=== PATIENT | male | born 1935 | race Caucasian/White ===

== ENCOUNTER 2018-07-31 09:54 | Inpatient (IN) | payer MEDICARE, SELFPAY ==
[2018-07-31] VITALS (9 sets, daily range): BP systolic 118–159; BP diastolic 69–108; PULSE 60–79; RESP 16–19; TEMP 36.4–36.8; O2SAT 95–100; BMI 25.3
--- NOTE | 2018-07-31 | DI.MRI.S_ITS ---
PROCEDURE: MR STROKE Pre- and post-contrast brain MRI, non-contrast brain MR angiogram, pre- and postcontrast neck MR angiogram INDICATIONS: Left arm and leg weakness TECHNIQUE: Brain: Noncontrast axial T1 spin echo, axial T2 fast spin echo, sagittal and axial FLAIR, coronal T2 fast spin echo, axial gradient echo, axial diffusion and ADC through the brain. After the administration of contrast, axial 3D VIBE of the cranial vasculature and brain. Brain MRA: Non-contrast 3-D time of flight MR angiogram, with multiple juijdzd-gthzrbnmc-mdezsjgfef (MIP) reformats performed. Neck MRA: Axial and sagittal TruFISP through the neck. Coronal dynamic MR angiogram during administration of contrast in the arterial and venous phases, with 3-dimenstional thcwyub-tfhavvblf-yfasoylohp (MIP) reformats constructed from subtraction images. COMPARISON: [facility], CT, CT HEAD/BRAIN WO CON, 07/31/2018, 10:20. FINDINGS: Image quality: Excellent. BRAIN: CSF spaces: Ventricles are normal in size and shape. Basal cisterns are patent. No extra-axial fluid collections. Brain: There is a focal diffusion-weighted abnormality seen involving the right posterior frontal lobe, as on series 2 image 68, affecting the motor strip. There is associated dark signal seen on the ADC map. There is developing T2-weighted/STIR signal seen at this site No intracranial bleeds or mass effects. Proximal muscle ischemic change and brain parenchymal volume loss are seen. Schmitt-white matter interface is normal. Brainstem appears normal. Normal intravascular flow voids are present. No abnormal intracranial enhancement. Skull and face: Calvarial marrow signal is normal. Orbits appear normal. Note is made of bilateral lens replacements. Sinuses: Sinuses and mastoids are clear. BRAIN MR ANGIOGRAM: Anterior circulation: Intracranial internal carotid arteries are normal in size and enhancement. The flow within the paired anterior cerebral arteries is normal and symmetric. The flow within the middle cerebral arteries is normal and symmetric. The anterior communicating artery is seen. No stenoses, occlusions, or aneurysms. Posterior circulation: The visualized portions of the vertebral arteries demonstrate normal caliber, and join to form a normal appearing basilar artery. There is a prominent right posterior communicating artery seen, with an accompanying diminutive right P1 segment. This is attributed to a type origin of the right posterior cerebral artery, which is considered to be a normal developmental variant of typically no clinical consequence. The flow within the posterior cerebral arteries is normal and symmetric. No stenoses, occlusions, or aneurysms. NECK MR ANGIOGRAM: Carotids: Great vessels demonstrate a conventional anatomy as they arise from the aortic arch. The origins of the common carotid arteries appear patent. The calibers and courses of both common carotid arteries are normal. The bifurcation regions appear normal bilaterally. The internal carotid arteries demonstrate normal course and caliber. Posterior circulation: The origins of the vertebral arteries appear patent. More superior portions of both vertebral arteries demonstrate normal course. The left vertebral artery largely terminates in the left posterior inferior cerebellar artery. It joints with the right vertebral artery to form the basilar artery. The basilar artery appears normal. Miscellaneous: Subclavian arteries appear patent. Pre-contrast images through the neck show no soft tissue abnormalities. IMPRESSION: BRAIN MRI: There is a subacute infarction are seen involving the posterior aspect of the right frontal lobe. No acute hemorrhage is seen. Note is made of age-appropriate brain parenchymal volume loss and chronic small vessel ischemic changes. BRAIN MR ANGIOGRAM: No significant intracranial arterial abnormalities are seen. NECK MR ANGIOGRAM: No hemodynamically significant stenosis can be seen of the arteries of the neck. Dictated by: Marcus Hays M.D. on 08/01/2018 at 11:41 Approved by: Marcus Hays M.D. on 08/01/2018 at 11:47
--- NOTE | 2018-07-31 | DI.ECHO.S_ITS ---
[place] [facility]---------+ [facility] +---------+ : : [address] : : : : [id number] : : : : Phone: [phone] Echocardiogram Report + + :Name: TARAS KINNEY Study Date: 08/01/2018 Height: 67 in : :[facility] Weight: 162 lb : : Gender: Male BSA: 1.8 m2 : :: 1935 Age: 82 yrs BP: 120/70 mmHg: :Reason For Study: Atrial fibrillation : : Performed By: Sarah Billings : :Referring: Patricia DAVID E : + + Interpretation Summary 1) Normal left ventricular thickness and size with low normal systolic function (EF 50-55%). 2) Grossly, normal right ventricular size and function. 3) The left atrium is moderately dilated. 4) Mild mitral regurgitation present. 5) No prior Echo available for comparison. Procedure: A two-dimensional transthoracic echocardiogram with color flow and Doppler was performed. The study quality was technically adequate. There is no prior echocardiogram noted for this patient. The patient was in atrial fibrillation with heart rates between 61-80 bpm during the exam. Left Ventricle: The left ventricle is normal in size. There is normal left ventricular wall thickness. The ejection fraction is estimated to be 50-55%. Diastolic function could not be accurately assessed due to atrial fibrillation. Right Ventricle: The right ventricle grossly appears normal in size with probable normal systolic function. Atria: The left atrium is moderately dilated. Right atrial size is normal. The interatrial septum is intact with no evidence for an atrial septal defect. Mitral Valve: The mitral valve leaflets appear mildly thickened, but open well. There is mild mitral regurgitation. Aortic Valve: The aortic valve is trileaflet. The aortic valve opens well. No aortic regurgitation is present. Tricuspid Valve: The tricuspid valve leaflets are thin and pliable. There is trace tricuspid regurgitation. The right ventricular systolic pressure is estimated to be at least 32 mmHg based on an estimated right atrial pressure of 3 mm Hg. Pulmonic Valve: The pulmonic valve is not well seen, but is grossly normal. There is no pulmonic valvular regurgitation. Great Vessels: The aortic root is normal size. The dimensions of the ascending aorta are normal. The aortic arch is normal in size. The IVC is of normal diameter and collapses greater than 50% with a sniff. This suggests a low right atrial pressure of 3 mm Hg. Pericardium/ Pleura There is no pericardial effusion. There is no pleural effusion. MMode/2D Measurements & Calculations LVIDd: 4.9 cm Ao root diam: 3.4 cm LVIDs: 3.4 cm Aortic Jxn: 2.6 cm FS: 30.6 % asc Aorta Diam: 2.9 cm EPSS: 1.1 cm Ao Arch Diam (Prox Trans): 3.2 cm IVSd: 1.1 cm LVPWd: 1.0 cm LV caceres. diameter/BSA (cm/m^2): 2.7 LV sys. diameter/BSA (cm/m^2): 1.9 LA dimension: 4.5 cm RA long axis: 5.6 cm LA A2 area: 24.4 cm2 RA area: 20.4 cm2 LA A4 area: 21.3 cm2 RA vol: 62.4 ml LA length (vol): 5.5 cm RA : 33.8 ml/m2 LA vol: 79.4 ml IVC diam: 1.3 cm LA vol index: 43.0 ml/m2 RVDd major: 5.3 cm RVD1 (basal): 3.8 cm RVD2 (mid): 3.4 cm Doppler Measurements & Calculations Ao V2 max: 143.8 cm/sec MV E max ezequiel: 122.5 cm/sec Ao V2 mean: 99.6 cm/sec MV A max ezequiel: 43.3 cm/sec Ao max P.3 mmHg MV E/A: 2.8 Ao mean P.6 mmHg Med Peak E' Ezequiel: 4.6 cm/sec Ao V2 VTI: 29.8 cm E/E' med: 26.5 Lat Peak E' Ezequiel: 6.8 cm/sec E/E' lat: 17.9 E/e' average: 22.2 MV dec time: 0.21 sec MV P1/2t: 61.3 msec TR max ezequiel: 266.9 cm/sec MV P1/2t max ezequiel: 121.9 cm/sec TR max P.5 mmHg MVA(P1/2t): 3.6 cm2 PA V2 max: 96.6 cm/sec PA V2 mean: 63.0 cm/sec PA mean P.9 mmHg PA Accel Time: 0.16 sec Reading Physician:01:05 PM
--- NOTE | 2018-07-31 10:13 | ED.WEAKNESS ---
HPI - Weakness General Chief complaint: Weakness Stated complaint: thinks he had a stroke Time Seen by Provider: 07/31/18 10:12 Source: patient and family Mode of arrival: ambulatory Limitations: no limitations History of Present Illness HPI Narrative: patient is an 82-year-old male presents with left leg weakness now resolved. He states that yesterday he went up an down a ramp about 12 times for his but a 12 time he could not put weight on his left leg. He denies falling or any injury. His he says he was really unable to walk or do much of anything only history of [place] evening. This morning he woke up and was able to walk okay. His he has no prior history of stroke. Has no chest pain or heart palpitations no shortness of breath. He did take an aspirin last evening. Nothing further today. MD Complaint: generalized weakness and focal weakness ( Left leg) Onset (ago): day(s) Quality: tingling and numbness Relieving factors: none Related Data Home Medications Medication Instructions Recorded Confirmed atorvastatin [Lipitor] 80 mg PO HS #0 10/12/12 07/31/18 tamsulosin [Flomax] 0.4 mg PO QDAY #0 10/12/12 07/31/18 finasteride 0.5 mg PO DAILY 07/31/18 07/31/18 lisinopril 10 mg PO DAILY 07/31/18 07/31/18 Allergies Allergy/AdvReac Type Severity Reaction Status Date / Time No Known Drug Allergies Allergy Verified 07/31/18 09:59 Review of Systems Review of Systems ROS Unobtainable: All systems reviewed & are unremarkable except as noted in HPI and below Constitutional Denies chills, Denies fever(s), Denies lethargy and Reports weakness ( left leg) Eyes Denies change in vision, Denies eye discharge, Denies irritation and Denies loss of vision Cardiovascular Denies chest pain, Denies irregular heart rhythm, Denies lightheadedness, Denies palpitations, Denies dyspnea, Denies dyspnea on exertion and Denies orthopnea Respiratory Denies cough, Denies dyspnea, Denies dyspnea on exertion and Denies wheezing Gastrointestinal Gastrointestinal: Denies abdominal pain, Denies change in bowel habits, Denies diarrhea, Denies nausea and Denies vomiting Musculoskeletal Reports as per HPI Integumentary/Breasts Denies pruritus, Denies erythema, Denies rash and Denies wounds Neurologic Denies loss of vision and Reports weakness ( left leg) Endocrine Denies palpitations Allergic/Immunologic Denies wheezing PFSH Medical History Family history of dementia (Acute) Family history of CVA (Acute) Daily consumption of alcohol (Acute) Mixed hyperlipidemia (Acute) Atrial fibrillation (Acute) Acute CVA (cerebrovascular accident) (Acute) BPH (benign prostatic hyperplasia) (Acute) Essential hypertension (Acute) Surgical History History of appendectomy (Acute) History of tonsillectomy (Acute) Family History Father CVA (cerebral vascular accident) Mother Dementia Social History household members: spouse Smoking Status: Former smoker alcohol intake: current Social History household members: spouse Smoking Status: Former smoker alcohol intake: current Exam Initial Vital Signs Initial Vital Signs: Vital Signs Temperature 97.6 F 07/31/18 09:59 Pulse Rate 62 07/31/18 09:59 Respiratory Rate 19 07/31/18 09:59 Blood Pressure 118/80 07/31/18 09:59 Pulse Oximetry 100 07/31/18 09:59 GENERAL: alert pleasant elderly male no acute distress HEENT: Head atraumatic,EOMI, pupils reactive, face symmetric, neck is supple CARDIO: Irregularly irregular no murmurs RESPIRATORY: Breath sounds equal bilaterally, no wheezes rales or rhonchi. ABDOMEN: Soft, nontender. Normoactive bowel sounds all 4 quadrants. No guarding or rebound. EXTREMITIES: Normal range of motion, no clubbing or edema. Neurovascularly intact NEUROLOGICAL: Alert and oriented x4.Normal gait and speech. Cranial nerves II through XII grossly intact. Good uyiwky-tl-bekp, good rabw-gf-kcco, strength equal bilaterally, no dysarthria or aphasia, sensation in tact to soft touch bilaterally, no visual changes, no facial droop SKIN: Warm, dry, no laceration, no petechiae, no rashes or lesions. Scores NIH Stroke Scale Level of Conciousness: Alert, keenly responsive Ask month/age: Answers both questions correctly. Open/close eyes, close hand: Performs both tasks correctly Best gaze horizontal: Normal Visual landon: No visual loss Facial palsy: Normal symetrical movement Left arm drift: No drift for full 10 sec Right arm drift: No drift for full 10 sec Left leg drift: No drift for full 10 sec Right leg drift: No drift for full 10 sec Limb ataxia: Absent Sensory on face/arms/legs: Normal, no sensory loss Best language: No aphasia, normal Dysarthria: Normal Extinction or inattention: No abnormality Total NIH Stroke scale score: 0 Course Orders Ordered: ED Orders 07/31/18 10:05 Basic Metabolic Panel Stat Complete Blood Count AUTO DIFF Stat Partial Thromboplastin Time Stat Prothrombin Time INR Stat 07/31/18 10:08 EKG-12 Lead Stat 07/31/18 10:20 CT head/brain wo con Stat 07/31/18 12:33 Consult to Physical Therapy Evaluate & Treat 07/31/18 12:57 Consult to Occupational Therapy Evaluate & Treat 07/31/18 13:34 Consult to Pastoral Services Routine 08/01/18 Lipid Panel Routine 08/01/18 05:00 EKG-12 Lead Routine Apixaban (Eliquis) 5 mg PO BID [facility] Aspirin (Aspirin Ec) 81 mg PO DAILY [facility] Atorvastatin Calcium (Lipitor) 80 mg PO BEDTIME [facility] Enoxaparin Sodium (Lovenox) 40 mg SUBCUT 1700 [facility] Stop: 08/01/18 17:01 Lisinopril (Zestril) 10 mg PO DAILY [facility] Non-Formulary Medication (Finasteride) 0.5 mg PO DAILY [facility] Sodium Chloride (Normal Saline 0.9% Flush) 10 ml IV PRN PRN PRN Reason: Flush Sodium Chloride (Normal Saline 0.9% Flush) 10 ml IV BID [facility] Tamsulosin HCl (Flomax) 0.4 mg PO DAILY [facility] Discontinued Medications Apixaban (Eliquis) 5 mg PO NOW ONE Stop: 07/31/18 11:21 Last Admin: 07/31/18 11:55 Dose: 5 mg Dutasteride (Avodart) 0.5 mg PO DAILY [facility] Enalapril Maleate (Vasotec) 20 mg PO DAILY [facility] Hydrochlorothiazide (Hydrochlorothiazide) 12.5 mg PO DAILY [facility] Vital Signs - 8 hr 07/31/18 09:59 07/31/18 10:00 07/31/18 11:30 Temperature 97.6 F Pulse Rate 62 79 79 Respiratory Rate 19 18 19 Blood Pressure 118/80 Blood Pressure [Left Arm] 118/80 122/108 H Pulse Oximetry 100 100 95 07/31/18 12:47 Temperature 97.9 F Pulse Rate 69 Respiratory Rate 18 Blood Pressure 118/69 Blood Pressure [Left Arm] Pulse Oximetry 100 MDM - Weakness Lab Data Attestation: I reviewed the patient's lab results. Result diagrams: 07/31/18 10:05 07/31/18 10:05 Lab Results 07/31/18 07/31/18 07/31/18 Range/Units 10:05 10:05 10:05 WBC 11.3 H (4.5-11.0) X10^3/uL RBC 4.52 (4.5-5.9) X10^6/uL Hgb 15.6 (13.5-17.5) g/dL Hct 46.4 (41-53) % MCV 102.6 H (80-100) fL MCH 34.4 H (26-34) PG MCHC 33.6 (30-36) % RDW 13.4 (11.6-14.8) % Plt Count 165 (150-400) X10^3/uL Neut % (Auto) 67.1 (50-75) % Lymph % (Auto) 26.2 (25-40) % [place] % (Auto) 5.7 (3-14) % Eos % (Auto) 0.3 L (2-4) % Baso % (Auto) 0.7 (0-2) % Neut # (Auto) 7600 H (0196-8570) /uL Lymph # (Auto) 3000 (8643-1941) /uL [place] # (Auto) 600 (0-900) /uL Eos # (Auto) 0 (0-450) /uL Baso # (Auto) 100 (0-100) /uL PT 11.1 (10.1-12.7) SECONDS INR 1.0 (0.9-1.3) APTT 30 (26.4-36.2) SECONDS Sodium 138 (137-145) mmol/L Potassium 3.6 (3.4-5.1) mmol/L Chloride 101 (98-107) mmol/L Carbon Dioxide 28 (22-32) mmol/L BUN 14 (9-20) mg/dL Creatinine 0.70 (0.66-1.25) mg/dL Estimated GFR > 60.0 (>60) mL/min BUN/Creatinine Ratio 20.0 (6-22) Glucose 144 H (80-110) mg/dL Calcium 8.9 (8.4-10.2) mg/dL Imaging Data CT scan - head: Radiologist's impression: PROCEDURE: XR CHEST 2V INDICATIONS: cough TECHNIQUE: 2 views of the chest were acquired. COMPARISON: None. FINDINGS: Surgical changes and devices: None. Lungs and pleura: Lungs are clear. No pleural effusions or pneumothorax. Mediastinum: Mediastinal contours are normal. Heart size is normal. Bones and chest wall: No suspicious bony abnormalities. Soft tissues appear unremarkable. IMPRESSION: 1. No acute cardiopulmonary disease. Dictated by: Haider Gonzalez M.D. on 07/31/2018 at 11:05 ECG Data Attestation: I personally reviewed and interpreted this ECG as follows: Prior ECG tracings: not available for review Interpretation: Atrial fibrillation rate 77 with PVCs no previous known AFib or EKGs to compare MDM Narrative Medical decision making narrative: patient had left leg weakness now completely resolved with a low NIH however he does have new onset atrial fibrillation. Patient likely did have a stroke. Will need further workup an MRI. MRI is unavailable today. Dr. Muniz, update and accepts patient. Discharge Plan Departure Patient Disposition: Admitted as Observation Clinical Impression: CVA (cerebral vascular accident) Qualifiers: CVA mechanism: unspecified Qualified Code(s): I63.9 - Cerebral infarction, unspecified Discharge Date/Time: 07/31/18 12:20 Interventions: ED Discharge Assessment Last Done: 07/31/18 12:28 Admit Date/Time: 07/31/18 12:00 Admit Provider: Patricia Muniz
[2018-07-31 10:15] LABS: Add Manual Diff / Slide Review NO; Basophils Absolute Auto 100 /uL (0-100); Basophils Percent Auto 0.7 % (0-2); Eosinophils Absolute Auto 0 /uL (0-450); Eosinophils Percent Auto 0.3 % (2-4); Hematocrit 46.4 % (41-53); Hemoglobin 15.6 g/dL (13.5-17.5); Lymphocytes Absolute Auto 3000 /uL (1100-4500); Lymphocytes Percent Auto 26.2 % (25-40); Mean Corpuscular HGB Conc 33.6 % (30-36); Mean Corpuscular Hemoglobin 34.4 PG (26-34); Mean Corpuscular Volume 102.6 fL (80-100); Monocytes Absolute Auto 600 /uL (0-900); Monocytes Percent Auto 5.7 % (3-14); Neutrophils Absolute Auto 7600 /uL (1500-7000); Neutrophils Percent Auto 67.1 % (50-75); Platelet Count 165 X10^3/uL (150-400); Red Blood Cell Count 4.52 X10^6/uL (4.5-5.9); Red Cell Distribution Width 13.4 % (11.6-14.8); White Blood Cell Count 11.3 X10^3/uL (4.5-11.0)
[2018-07-31 10:19] LABS: Prothrombin Time 11.1 SECONDS (10.1-12.7)
--- NOTE | 2018-07-31 10:20 | DI.CT.S_ITS ---
PROCEDURE: CT HEAD/BRAIN WO CON INDICATIONS: left leg weakness now resolved TECHNIQUE: Noncontrast 4.5 mm thick angled axial sections acquired from the foramen magnum to the vertex, with coronal and sagittal reformats. For radiation dose reduction, the following was used: automated exposure control, adjustment of mA and/or kV according to patient size. COMPARISON: None. FINDINGS: Image quality: Excellent. CSF spaces: Basal cisterns are patent. No extra-axial fluid collections. The ventricles are symmetric in size and shape. There is moderate cerebral volume loss, with resultant ventricular and sulcal prominence. Brain: No intracranial hemorrhage, mass, or mass effect. There are subcortical, periventricular and deep white matter hypodensities consistent with mild chronic small vessel ischemic changes. There is intracranial internal carotid artery atherosclerosis. Skull and face: Calvarium and visualized facial bones appear intact, without suspicious lesions. Sinuses: Visualized sinuses and mastoids are clear. IMPRESSION: 1. No acute intracranial abnormality. 2. Moderate cerebral volume loss and mild chronic white matter small vessel ischemic changes. Dictated by: aHider Gonzalez M.D. on 07/31/2018 at 10:57 Approved by: Haider Gonzalez M.D. on 07/31/2018 at 10:58
[2018-07-31 10:21] LABS: PTT Partial Thromboplastin Tim 30 SECONDS (26.4-36.2)
[2018-07-31 10:22] LABS: Blood Urea Nitrogen 14 mg/dL (9-20); Calcium 8.9 mg/dL (8.4-10.2); Carbon Dioxide 28 mmol/L (22-32); Chloride 101 mmol/L (98-107); Estimated Glomerular Filt Rate > 60.0 mL/min (>60); Glucose 144 mg/dL (80-110); HEMOLYSIS < 15 (0-50); Potassium 3.6 mmol/L (3.4-5.1); Sodium 138 mmol/L (137-145)
--- NOTE | 2018-07-31 10:25 | ED_ITS ---
HPI - Weakness General Chief complaint: Weakness Stated complaint: thinks he had a stroke Time Seen by Provider: 07/31/18 10:12 Source: patient and family Mode of arrival: ambulatory Limitations: no limitations History of Present Illness HPI Narrative: patient is an 82-year-old male presents with left leg weakness now resolved. He states that yesterday he went up an down a ramp about 12 times for his but a 12 time he could not put weight on his left leg. He denies falling or any injury. His he says he was really unable to walk or do much of anything only history of [place] evening. This morning he woke up and was able to walk okay. His he has no prior history of stroke. Has no chest pain or heart palpitations no shortness of breath. He did take an aspirin last evening. Nothing further today. MD Complaint: generalized weakness and focal weakness ( Left leg) Onset (ago): day(s) Quality: tingling and numbness Relieving factors: none Related Data Home Medications Medication Instructions Recorded Confirmed atorvastatin [Lipitor] 80 mg PO HS #0 10/12/12 07/31/18 tamsulosin [Flomax] 0.4 mg PO QDAY #0 10/12/12 07/31/18 finasteride 0.5 mg PO DAILY 07/31/18 07/31/18 lisinopril 10 mg PO DAILY 07/31/18 07/31/18 Allergies Allergy/AdvReac Type Severity Reaction Status Date / Time No Known Drug Allergies Allergy Verified 07/31/18 09:59 Review of Systems Review of Systems ROS Unobtainable: All systems reviewed & are unremarkable except as noted in HPI and below Constitutional Denies chills, Denies fever(s), Denies lethargy and Reports weakness ( left leg) Eyes Denies change in vision, Denies eye discharge, Denies irritation and Denies loss of vision Cardiovascular Denies chest pain, Denies irregular heart rhythm, Denies lightheadedness, Denies palpitations, Denies dyspnea, Denies dyspnea on exertion and Denies orthopnea Respiratory Denies cough, Denies dyspnea, Denies dyspnea on exertion and Denies wheezing Gastrointestinal Gastrointestinal: Denies abdominal pain, Denies change in bowel habits, Denies diarrhea, Denies nausea and Denies vomiting Musculoskeletal Reports as per HPI Integumentary/Breasts Denies pruritus, Denies erythema, Denies rash and Denies wounds Neurologic Denies loss of vision and Reports weakness ( left leg) Endocrine Denies palpitations Allergic/Immunologic Denies wheezing PFSH Medical History Family history of dementia (Acute) Family history of CVA (Acute) Daily consumption of alcohol (Acute) Mixed hyperlipidemia (Acute) Atrial fibrillation (Acute) Acute CVA (cerebrovascular accident) (Acute) BPH (benign prostatic hyperplasia) (Acute) Essential hypertension (Acute) Surgical History History of appendectomy (Acute) History of tonsillectomy (Acute) Family History Father CVA (cerebral vascular accident) Mother Dementia Social History household members: spouse Smoking Status: Former smoker alcohol intake: current Social History household members: spouse Smoking Status: Former smoker alcohol intake: current Exam Initial Vital Signs Initial Vital Signs: Vital Signs Temperature 97.6 F 07/31/18 09:59 Pulse Rate 62 07/31/18 09:59 Respiratory Rate 19 07/31/18 09:59 Blood Pressure 118/80 07/31/18 09:59 Pulse Oximetry 100 07/31/18 09:59 GENERAL: alert pleasant elderly male no acute distress HEENT: Head atraumatic,EOMI, pupils reactive, face symmetric, neck is supple CARDIO: Irregularly irregular no murmurs RESPIRATORY: Breath sounds equal bilaterally, no wheezes rales or rhonchi. ABDOMEN: Soft, nontender. Normoactive bowel sounds all 4 quadrants. No guard ing or rebound. EXTREMITIES: Normal range of motion, no clubbing or edema. Neurovascularly intact NEUROLOGICAL: Alert and oriented x4.Normal gait and speech. Cranial nerves II through XII grossly intact. Good [id number], good [id number], strength equal bilaterally, no dysarthria or aphasia, sensation in tact to soft touch bilaterally, no visual changes, no facial droop SKIN: Warm, dry, no laceration, no petechiae, no rashes or lesions. Scores NIH Stroke Scale Level of Conciousness: Alert, keenly responsive Ask month/age: Answers both questions correctly. Open/close eyes, close hand: Performs both tasks correctly Best gaze horizontal: Normal Visual landon: No visual loss Facial palsy: Normal symetrical movement Left arm drift: No drift for full 10 sec Right arm drift: No drift for full 10 sec Left leg drift: No drift for full 10 sec Right leg drift: No drift for full 10 sec Limb ataxia: Absent Sensory on face/arms/legs: Normal, no sensory loss Best language: No aphasia, normal Dysarthria: Normal Extinction or inattention: No abnormality Total NIH Stroke scale score: 0 Course Orders Ordered: ED Orders 07/31/18 10:05 Basic Metabolic Panel Stat Complete Blood Count AUTO DIFF Stat Partial Thromboplastin Time Stat Prothrombin Time INR Stat 07/31/18 10:08 EKG-12 Lead Stat 07/31/18 10:20 CT head/brain wo con Stat 07/31/18 12:33 Consult to Physical Therapy Evaluate & Treat 07/31/18 12:57 Consult to Occupational Therapy Evaluate & Treat 07/31/18 13:34 Consult to Pastoral Services Routine 08/01/18 Lipid Panel Routine 08/01/18 05:00 EKG-12 Lead Routine Apixaban (Eliquis) 5 mg PO BID [facility] Aspirin (Aspirin Ec) 81 mg PO DAILY [facility] Atorvastatin Calcium (Lipitor) 80 mg PO BEDTIME [facility] Enoxaparin Sodium (Lovenox) 40 mg SUBCUT 1700 [facility] Stop: 08/01/18 17:01 Lisinopril (Zestril) 10 mg PO DAILY [facility] Non-Formulary Medication (Finasteride) 0.5 mg PO DAILY [facility] Sodium Chloride (Normal Saline 0.9% Flush) 10 ml IV PRN PRN PRN Reason: Flush Sodium Chloride (Normal Saline 0.9% Flush) 10 ml IV BID [facility] Tamsulosin HCl (Flomax) 0.4 mg PO DAILY [facility] Discontinued Medications Apixaban (Eliquis) 5 mg PO NOW ONE Stop: 07/31/18 11:21 Last Admin: 07/31/18 11:55 Dose: 5 mg Dutasteride (Avodart) 0.5 mg PO DAILY [facility] Enalapril Maleate (Vasotec) 20 mg PO DAILY [facility] Hydrochlorothiazide (Hydrochlorothiazide) 12.5 mg PO DAILY [facility] Vital Signs - 8 hr 07/31/18 09:59 07/31/18 10:00 07/31/18 11:30 Temperature 97.6 F Pulse Rate 62 79 79 Respiratory Rate 19 18 19 Blood Pressure 118/80 Blood Pressure [Left Arm] 118/80 122/108 H Pulse Oximetry 100 100 95 07/31/18 12:47 Temperature 97.9 F Pulse Rate 69 Respiratory Rate 18 Blood Pressure 118/69 Blood Pressure [Left Arm] Pulse Oximetry 100 MDM - Weakness Lab Data Attestation: I reviewed the patient's lab results. Result diagrams: 07/31/18 10:05 07/31/18 10:05 Lab Results 07/31/18 07/31/18 07/31/18 Range/Units 10:05 10:05 10:05 WBC 11.3 H (4.5-11.0) X10^3/uL RBC 4.52 (4.5-5.9) X10^6/uL Hgb 15.6 (13.5-17.5) g/dL Hct 46.4 (41-53) % MCV 102.6 H (80-100) fL MCH 34.4 H (26-34) PG MCHC 33.6 (30-36) % RDW 13.4 (11.6-14.8) % Plt Count 165 (150-400) X10^3/uL Neut % (Auto) 67.1 (50-75) % Lymph % (Auto) 26.2 (25-40) % [place] % (Auto) 5.7 (3-14) % Eos % (Auto) 0.3 L (2-4) % Baso % (Auto) 0.7 (0-2) % Neut # (Auto) 7600 H (0207-8484) /uL Lymph # (Auto) 3000 (3493-3774) /uL [place] # (Auto) 600 (0-900) /uL Eos # (Auto) 0 (0-450) /uL Baso # (Auto) 100 (0-100) /uL PT 11.1 (10.1-12.7) SECONDS INR 1.0 (0.9-1.3) APTT 30 (26.4-36.2) SECONDS Sodium 138 (137-145) mmol/L Potassium 3.6 (3.4-5.1) mmol/L Chloride 101 (98-107) mmol/L Carbon Dioxide 28 (22-32) mmol/L BUN 14 (9-20) mg/dL Creatinine 0.70 (0.66-1.25) mg/dL Estimated GFR > 60.0 (>60) mL/min BUN/Creatinine Ratio 20.0 (6-22) Glucose 144 H (80-110) mg/dL Calcium 8.9 (8.4-10.2) mg/dL Imaging Data CT scan - head: Radiologist's impression: PROCEDURE: XR CHEST 2V INDICATIONS: cough TECHNIQUE: 2 views of the chest were acquired. COMPARISON: None. FINDINGS: Surgical changes and devices: None. Lungs and pleura: Lungs are clear. No pleural effusions or pneumothorax. Mediastinum: Mediastinal contours are normal. Heart size is normal. Bones and chest wall: No suspicious bony abnormalities. Soft tissues appear unremarkable. IMPRESSION: 1. No acute cardiopulmonary disease. Dictated by: Haider Gonzalez M.D. on 07/31/2018 at 11:05 ECG Data Attestation: I personally reviewed and interpreted this ECG as follows: Prior ECG tracings: not available for review Interpretation: Atrial fibrillation rate 77 with PVCs no previous known AFib or EKGs to compare MDM Narrative Medical decision making narrative: patient had left leg weakness now completely resolved with a low NIH however he does have new onset atrial fibrillation. Patient likely did have a stroke. Will need further workup an MRI. MRI is unavailable today. Dr. Muniz, update and accepts patient. Discharge Plan Departure Patient Disposition: Admitted as Observation Clinical Impression: CVA (cerebral vascular accident) Qualifiers: CVA mechanism: unspecified Qualified Code(s): I63.9 - Cerebral infarction, unspecified Discharge Date/Time: 07/31/18 12:20 Interventions: ED Discharge Assessment Last Done: 07/31/18 12:28 Admit Date/Time: 07/31/18 12:00 Admit Provider: Patricia Muniz
[2018-07-31] MEDS: APIXABAN 5 MG TABLET PO ×2 (11:55→20:02)
--- NOTE | 2018-07-31 12:37 | PM.HP.1 ---
History of Present Illness Date Patient Seen: 07/31/18 Time Patient Seen: 12:48 Chief complaint: thinks he had a stroke Narrative: This is an 82-year-old male presenting to the emergency department with a history of left-sided, lower extremity weakness since yesterday. He is unable to explain why he did not come in yesterday, but blames some car problems. Yesterday afternoon he went shopping because he was concerned about the worsening weather and by the time he was done bringing things into the house he was unable to stand on the left foot, and so instead of coming to the hospital he called his son and then went to bed. When he woke up this morning the left leg was still weak although it was not bothering him as much, at which point he presented to the emergency department. The initial CT scan does not show any acute stroke and other than apparent new onset atrial fibrillation no other abnormality is reported. When I see him he appears to have residual left-sided symptoms including a Babinski that is downgoing on the left. He lives in his own home off of [address] with his . He attends with Dr. Kaur and he is quite sure that he has never had atrial fibrillation before. 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 He has a history of hypertension and hyperlipidemia but denies any history of diabetes mellitus, stroke or heart trouble. His father did have a stroke at a similar age. He drinks 3-4 shots of gin and whiskey per day. Not a smoker. He has recently been ?battling a stye? on the left upper eyelid. Patient History Medical History Family history of dementia (Acute) Family history of CVA (Acute) Daily consumption of alcohol (Acute) Mixed hyperlipidemia (Acute) Atrial fibrillation (Acute) Acute CVA (cerebrovascular accident) (Acute) BPH (benign prostatic hyperplasia) (Acute) Essential hypertension (Acute) Surgical History History of appendectomy (Acute) History of tonsillectomy (Acute) Family History Father CVA (cerebral vascular accident) Mother Dementia Family & Social History Family History Father CVA (cerebral vascular accident) Mother Dementia Social History: Drinks 3-4 shots of Gin and Whiskey per day. 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 Safety & Behavioral: Feels Safe in Current Yes Environment Been Physically Hurt or No Threatened By a Person Tobacco & Substance use: alcohol intake frequency 3 or more drinks per day Substance Use Type does not use Meds Home Medications Medication Instructions Recorded Confirmed Type aspirin 81 mg PO QDAY #0 10/12/12 History atorvastatin [Lipitor] 80 mg PO HS #0 10/12/12 History dutasteride [Avodart] 0.5 mg PO QDAY #0 10/12/12 History enalapril maleate 20 mg PO QDAY #0 10/12/12 History hydrochlorothiazide [Microzide] 12.5 mg PO QDAY #0 10/12/12 History tamsulosin [Flomax] 0.4 mg PO QDAY #0 10/12/12 History Allergies Allergy/AdvReac Type Severity Reaction Status Date / Time No Known Drug Allergies Allergy Verified 07/31/18 09:59 Review of Systems Review of Systems Positive for left leg weakness and medical care avoidance. Negative for chest pain, nausea, vomiting, shortness of breath, fevers, chills, sweats, bleeding, rashes, joint pain, seizures, headaches, trouble talking, new allergies, sore throat, abdominal pain, dysuria. All systems reviewed & are unremarkable except as noted in HPI and below Exam Vital Signs (past 8 hours): - 07/31/18 09:59 07/31/18 10:00 07/31/18 11:30 Temperature 97.6 F Pulse Rate 62 79 79 Respiratory Rate 19 18 19 Blood Pressure 118/80 Blood Pressure [Left Arm] 118/80 122/108 H Pulse Oximetry 100 100 95 Oxygen Delivery Method Room Air Narrative Exam Narrative: Alert and oriented X 3. No apparent distress Pupils are equally round and reactive to light and accommodation. Extraocular muscles are intact. Sclerae are pink and nonicteric. The left upper eyelid is swollen and reddened consistent with a Hordoleum that he describes he has had for several days. Throat looks normal No lymph nodes are felt head, neck, supraclavicular area There is no thyromegaly JVD is less 6 cm No carotid bruits are heard Heart is irregularly irregular without murmur Lungs clear to auscultation bilaterally Abdomen is soft, bowel sounds positive, nontender, no organomegaly except for the distended bladder that he acknowledges. Extremities trace bilatera ankle edema Skin no rash or jaundice Neuro exam symmetric, 5/5 upper and lower extremity function. Downgoing Babinski's on the right. Upgoing Babinski's on the left. Cranial nerves 2-12 tested intact. Deep tendon reflexes are symmetric and normal active throughout. Balance is normal. Objective Labs Result Diagrams: 07/31/18 10:05 07/31/18 10:05 Labs: Laboratory Results - last 24 hr 07/31/18 07/31/18 07/31/18 10:05 10:05 10:05 WBC 11.3 H RBC 4.52 Hgb 15.6 Hct 46.4 MCV 102.6 H MCH 34.4 H MCHC 33.6 RDW 13.4 Plt Count 165 Neut % (Auto) 67.1 Lymph % (Auto) 26.2 [place] % (Auto) 5.7 Eos % (Auto) 0.3 L Baso % (Auto) 0.7 Neut # (Auto) 7600 H Lymph # (Auto) 3000 [place] # (Auto) 600 Eos # (Auto) 0 Baso # (Auto) 100 PT 11.1 INR 1.0 APTT 30 Sodium 138 Potassium 3.6 Chloride 101 Carbon Dioxide 28 BUN 14 Creatinine 0.70 Estimated GFR > 60.0 BUN/Creatinine Ratio 20.0 Glucose 144 H Calcium 8.9 Assessment & Plan Assessment & Plan narrative: 1 - 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 3 - New Onset Atrial Fibrillation - the rate appears to be controlled. It is not clear how acute or chronic this syndrome is other than he has no recall of being told that he had this before. He will need to be on telemetry. - echocardiogram is pending. - Eliquis will be started. Continue aspirin. 4 - Hyperlipidemia - continue Lipitor and check lipids in the morning. 5 - BPH - continue Avodart and Flomax. Straight cath as needed.
--- NOTE | 2018-07-31 12:57 | P.HP_ITS ---
History of Present Illness Date Patient Seen: 07/31/18 Time Patient Seen: 12:48 Chief complaint: thinks he had a stroke Narrative: This is an 82-year-old male presenting to the emergency department with a history of left-sided, lower extremity weakness since yesterday. He is unable to explain why he did not come in yesterday, but blames some car problems. Yesterday afternoon he went shopping because he was concerned about the worsening weather and by the time he was done bringing things into the house he was unable to stand on the left foot, and so instead of coming to the hospital he called his son and then went to bed. When he woke up this morning the left leg was still weak although it was not bothering him as much, at which point he presented to the emergency department. The initial CT scan does not show any acute stroke and other than apparent new onset atrial fibrillation no other abnormality is reported. When I see him he appears to have residual left- sided symptoms including a Babinski that is downgoing on the left. He lives in his own home off of [facility] with his . He attends with Dr. Kaur and he is quite sure that he has never had atrial fibrillation before. 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 He has a history of hypertension and hyperlipidemia but denies any history of diabetes mellitus, stroke or heart trouble. His father did have a stroke at a similar age. He drinks 3-4 shots of gin and whiskey per day. Not a smoker. He has recently been ?battling a stye? on the left upper eyelid. Patient History Medical History Family history of dementia (Acute) Family history of CVA (Acute) Daily consumption of alcohol (Acute) Mixed hyperlipidemia (Acute) Atrial fibrillation (Acute) Acute CVA (cerebrovascular accident) (Acute) BPH (benign prostatic hyperplasia) (Acute) Essential hypertension (Acute) Surgical History History of appendectomy (Acute) History of tonsillectomy (Acute) Family History Father CVA (cerebral vascular accident) Mother Dementia Family & Social History Family History Father CVA (cerebral vascular accident) Mother Dementia Social History: Drinks 3-4 shots of Gin and Whiskey per day. 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 Safety & Behavioral: Feels Safe in Current Yes Environment Been Physically Hurt or No Threatened By a Person Tobacco & Substance use: alcohol intake frequency 3 or more drinks per day Substance Use Type does not use Meds Home Medications Medication Instructions Recorded Confirmed Type aspirin 81 mg PO QDAY #0 10/12/12 History atorvastatin [Lipitor] 80 mg PO HS #0 10/12/12 History dutasteride [Avodart] 0.5 mg PO QDAY #0 10/12/12 History enalapril maleate 20 mg PO QDAY #0 10/12/12 History hydrochlorothiazide [Microzide] 12.5 mg PO QDAY #0 10/12/12 History tamsulosin [Flomax] 0.4 mg PO QDAY #0 10/12/12 History Allergies Allergy/AdvReac Type Severity Reaction Status Date / Time No Known Drug Allergies Allergy Verified 07/31/18 09:59 Review of Systems Review of Systems Positive for left leg weakness and medical care avoidance. Negative for chest pain, nausea, vomiting, shortness of breath, fevers, chills, sweats, bleeding, rashes, joint pain, seizures, headaches, trouble talking, new allergies, sore throat, abdominal pain, dysuria. All systems reviewed & are unremarkable except as noted in HPI and below Exam Vital Signs (past 8 hours): - 07/31/18 09:59 07/31/18 10:00 07/31/18 11:30 Temperature 97.6 F Pulse Rate 62 79 79 Respiratory Rate 19 18 19 Blood Pressure 118/80 Blood Pressure [Left Arm] 118/80 122/108 H Pulse Oximetry 100 100 95 Oxygen Delivery Method Room Air Narrative Exam Narrative: Alert and oriented X 3. No apparent distress Pupils are equally round and reactive to light and accommodation. Extraocular muscles are intact. Sclerae are pink and nonicteric. The left upper eyelid is swollen and reddened consistent with a Hordoleum that he describes he has had for several days. Throat looks normal No lymph nodes are felt head, neck, supraclavicular area There is no thyromegaly JVD is less 6 cm No carotid bruits are heard Heart is irregularly irregular without murmur Lungs clear to auscultation bilaterally Abdomen is soft, bowel sounds positive, nontender, no organomegaly except for the distended bladder that he acknowledges. Extremities trace bilatera ankle edema Skin no rash or jaundice Neuro exam symmetric, 5/5 upper and lower extremity function. Downgoing Babinski's on the right. Upgoing Babinski's on the left. Cranial nerves 2-12 tested intact. Deep tendon reflexes are symmetric and normal active throughout. Balance is normal. Objective Labs Result Diagrams: 07/31/18 10:05 07/31/18 10:05 Labs: Laboratory Results - last 24 hr 07/31/18 07/31/18 07/31/18 10:05 10:05 10:05 WBC 11.3 H RBC 4.52 Hgb 15.6 Hct 46.4 MCV 102.6 H MCH 34.4 H MCHC 33.6 RDW 13.4 Plt Count 165 Neut % (Auto) 67.1 Lymph % (Auto) 26.2 [place] % (Auto) 5.7 Eos % (Auto) 0.3 L Baso % (Auto) 0.7 Neut # (Auto) 7600 H Lymph # (Auto) 3000 [place] # (Auto) 600 Eos # (Auto) 0 Baso # (Auto) 100 PT 11.1 INR 1.0 APTT 30 Sodium 138 Potassium 3.6 Chloride 101 Carbon Dioxide 28 BUN 14 Creatinine 0.70 Estimated GFR > 60.0 BUN/Creatinine Ratio 20.0 Glucose 144 H Calcium 8.9 Assessment & Plan Assessment & Plan narrative: 1 - 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 3 - New Onset Atrial Fibrillation - the rate appears to be controlled. It is not clear how acute or chronic this syndrome is other than he has no recall of being told that he had this before. He will need to be on telemetry. - echocardiogram is pending. - Eliquis will be started. Continue aspirin. 4 - Hyperlipidemia - continue Lipitor and check lipids in the morning. 5 - BPH - continue Avodart and Flomax. Straight cath as needed.
--- NOTE | 2018-07-31 14:30 | PT.IIE ---
Surgical History (Last Updated 07/31/18 @ 12:41 by Patricia Muniz MD) History of appendectomy (Acute) History of tonsillectomy (Acute) Medical History (Last Updated 07/31/18 @ 12:41 by Patricia Muniz MD) Family history of dementia (Acute) Family history of CVA (Acute) Daily consumption of alcohol (Acute) Mixed hyperlipidemia (Acute) Atrial fibrillation (Acute) Acute CVA (cerebrovascular accident) (Acute) BPH (benign prostatic hyperplasia) (Acute) Essential hypertension (Acute) Physical Therapy Inpatient Evaluation/Re-Eval M1 PT/OT-IP Prior Functional Status Start: 07/31/18 14:31 Freq: NEEDED Status: Active Protocol: Document 07/31/18 14:00 [facility] (Rec: 07/31/18 14:50 [facility] [id number]) Medical Review Prior Functional Status Medical History Reviewed Yes Mobility and Gait indep. gait without device Activities of Daily Living and IADL's indep. I/ADLs, including driving Social History Household Members spouse Living Arrangements House Number of Floors (Floors) Two Floors Number of Stairs To Enter/Railing? ramped entry- 20 steps with unilat. rail down to his record room. Can live on main level (does not need to manage stairs). Home Environment Standard Height Toilet Walk in Shower Ramp Home Equipment Front Wheel Walker Additional Social History Comment Pt with acute onset LLE weakness, unable to WB on the LLE. He denied pain. CT was negative for acute findings. His recently had L leg fx and surgery, currently is the primary CG for her. His son and DIL will stay with them until Wednesday. M2 PT-IP Current Condition Start: 07/31/18 14:31 Freq: NEEDED Status: Active Protocol: Document 07/31/18 14:00 RCC (Rec: 07/31/18 14:50 [facility] [id number]) Physical Therapy Current Condition Current Condition Evaluation Date 07/31/18 Treatment Diagnosis CVA, A-fib, impaired activity tolerance M3 PT-IP Subjective Start: 07/31/18 14:31 Freq: NEEDED Status: Active Protocol: Document 07/31/18 14:00 RCC (Rec: 07/31/18 14:50 [facility] [id number]) Subjective Physical Therapy Visit Type Type Initial Evaluation Visit Start Time 14:00 Visit Stop Time 14:30 Total Visit Minutes 30 Number of FURNACE ROASTER Visits 0 Physical Therapy Visit Comments Patient Comments pt states that he feels close to his baseline Patient Goals to be able to care for his Therapy Pain Assessment Pain Present Pain Present Denied Pain M4 PT-IP Mobility and Gait Start: 07/31/18 14:31 Freq: NEEDED Status: Active Protocol: Document 07/31/18 14:00 [facility] (Rec: 07/31/18 14:50 [facility] [id number]) PT-Bed Mobility Assessment Supine to Sit Supine to Sit Independent Scooting Scooting to Edge of Bed Independent PT-Transfer Assessment Sit to and From Stand Sit to and from Stand Standby Assistance Equipment Transfer Assistive Device Gait Belt Front Wheeled Walker Transfers Transfer Destination Chair Transfer Technique Stand Step Pivot Transfer Ability Level of Assist Standby Assistance Gait Assessment Gait Gait Assistance Required: Standby Assistance Distance (Feet) 150 Assistive Devices Assistive Device Gait Belt Front Wheeled Walker Gait Deviations General Gait Pattern Decreased Stride Length Factors Limiting Gait Function Factors Limiting Gait Function Decreased Activity Tolerance Poor Balance Comments Gait Comments 125 ft with FWW, 25 ft without AD. PT-Balance Assessment Sitting Balance and Reactions Static Sitting Balance Ability Good Dynamic Sitting Balance Ability Good Standing Balance and Reactions Static Standing Balance Ability Good Dynamic Standing Balance Ability Fair Device Used FWW Balance Tests Single Limb Standing unable Tandem Standing 3 sec each M5 PT-IP Objective Assessments Start: 07/31/18 14:31 Freq: NEEDED Status: Active Protocol: Document 07/31/18 14:00 [facility] (Rec: 07/31/18 14:50 [facility] [id number]) Orientation Orientation/Cognition Level of Alertness Alert Orientation Name Age Birthday Month Date Year Day of Week Place Situation Gross Range of Motion Lower Extremity ROM Assessment Within Functional Limits Strength Lower Extremity Strength Assessment Within Functional Limits Coordination Assessment Assessment Finger to Nose Test Normal Performance Pronation/Supination Test Normal Performance Foot Tapping Test Normal Performance Heel on Vicente Test Normal Performance Sensation Assessment Sensation Gross Sensation WNL Light Touch Intact Muscle Tone Muscle Tone WNL Yes M6 PT-IP Treatment Start: 07/31/18 14:31 Freq: NEEDED Status: Active Protocol: Document 07/31/18 14:00 [facility] (Rec: 07/31/18 14:50 [facility] [id number]) Physical Therapy Treatment Education Education Provided Safety M7 PT-IP Assessment and Plan Start: 07/31/18 14:31 Freq: NEEDED Status: Active Protocol: Document 07/31/18 14:00 [facility] (Rec: 07/31/18 14:50 [facility] [id number]) PT Summary Assessment and Plan Potential Rehabilitation Potential Good Status of Condition at Evaluation Stable Summary Impairments Balance Gait Activity Tolerance Assessment Summary Pt presents with strength equal bilaterally in the LEs and able to WB on the LLE without problems. Pt does have some balance deficits, but was able to ambulate the final 25 ft of gait without any assistive device and no loss of balance. Pt fatigued, but HR 85 bpm and O2 saturation 98% after ambulation. Pt likely to be able to d/c home when medically stable. Goals Bed Mobility Goal Independent Transfer Goal Independent Gait Goal Independent Gait Distance 300 Days to Meet Goals 4 Frequency of Treatment Frequency Of Treatment Once a Day Treatment Plan Physical Therapy Treatment Plan Gait Training Therapeutic Exercise Balance Retraining Discharge Planning Neuromuscular Re-ed Other Recommendations and Next Treatment gait without device, standing Focus balance training. Recommendations To Nursing Amount of Assist Needed 1 Person Assist Discharge Recommendations PT Discharge Recommendations Home
--- NOTE | 2018-07-31 15:56 | PC.NURSE ---
Admit: Late entry Arrived to room 230 at 1230. Alert and oriented X3. Admits to having some trouble with his short-term memory lately. No neuro deficits noted during assessment, NIH score=0. PERRLA. Speech clear, no facial droop. Denies pain, chest pain/palpitations or shortness of breath. VSS, 99-100% on RA. Tele monitoring ongoing, reading A-fib, BBB w/ occasional PVC's (per ICU report). HR irregular to auscultation. Lungs CTA. 2+ pitting edema to BLE's. Oriented to room and call light and instructed to call for staff w/ any needs. Agreed not to get up without assist, history of multiple recent falls. Fall precautions implemented. Up in chair at this time. Call light in reach, chair alarm on.
[2018-07-31] MEDS: ATORVASTATIN 20 MG TABLET 80 MG PO (20:02)
[2018-07-31] MEDS: SODIUM CHLORIDE 0.9% FLUSH 10 ML IV (20:02)
[2018-08-01] VITALS (8 sets, daily range): BP systolic 107–145; BP diastolic 61–92; PULSE 53–69; RESP 17–18; TEMP 36.3–36.7; O2SAT 97–100
[2018-08-01] MEDS: POTASSIUM CHLORIDE 20 MEQ/15 ML UDC 40 MEQ PO (01:30)
--- NOTE | 2018-08-01 04:23 | PC.NURSE ---
Parts Consultant Note: 0030: Sleeping, arousable. Vital signs stable. Pt is alert, oriented X3. IV in place in lt AC. Hw remains on telemetry. Room air sats are 100%. Pt denies pain, headache, or any discomfort. Assisted up to bathroom: steady on his feet. He refuses walker. Heart beat is irregular.
[2018-08-01 05:48] LABS: Add Manual Diff / Slide Review NO; Basophils Absolute Auto 0 /uL (0-100); Basophils Percent Auto 0.4 % (0-2); Eosinophils Absolute Auto 0 /uL (0-450); Eosinophils Percent Auto 0.7 % (2-4); Hematocrit 43.9 % (41-53); Hemoglobin 14.6 g/dL (13.5-17.5); Lymphocytes Absolute Auto 3200 /uL (1100-4500); Lymphocytes Percent Auto 42.6 % (25-40); Mean Corpuscular HGB Conc 33.3 % (30-36); Mean Corpuscular Hemoglobin 34.4 PG (26-34); Mean Corpuscular Volume 103.3 fL (80-100); Monocytes Absolute Auto 500 /uL (0-900); Monocytes Percent Auto 6.9 % (3-14); Neutrophils Absolute Auto 3700 /uL (1500-7000); Neutrophils Percent Auto 49.4 % (50-75); Platelet Count 147 X10^3/uL (150-400); Red Blood Cell Count 4.25 X10^6/uL (4.5-5.9); Red Cell Distribution Width 13.4 % (11.6-14.8); White Blood Cell Count 7.5 X10^3/uL (4.5-11.0)
[2018-08-01 05:52] LABS: Blood Urea Nitrogen 12 mg/dL (9-20); Calcium 8.7 mg/dL (8.4-10.2); Carbon Dioxide 26 mmol/L (22-32); Chloride 105 mmol/L (98-107); Estimated Glomerular Filt Rate > 60.0 mL/min (>60); Glucose 87 mg/dL (80-110); HEMOLYSIS 15 (0-50); Magnesium 1.9 mg/dL (1.6-2.3); Potassium 3.8 mmol/L (3.4-5.1); Sodium 138 mmol/L (137-145)
[2018-08-01 06:06] LABS: Cholesterol 106 mg/dL (140-199); HDL Cholesterol 48 mg/dL (40-60); LDL Cholesterol Calculated 44 mg/dL (<100); Triglycerides 69 mg/dL (35-150)
[2018-08-01 07:26] LABS: Thyroid Stimulating Hormone 2.94 uIU/mL (0.47-4.68)
[2018-08-01] MEDS: ASPIRIN EC 81 MG TABLET PO (09:27)
[2018-08-01] MEDS: TAMSULOSIN 0.4 MG CAPSULE PO (09:27)
[2018-08-01] MEDS: APIXABAN 5 MG TABLET PO ×2 (09:27→22:37)
[2018-08-01] MEDS: FINASTERIDE 5 MG TABLET PO (09:27)
[2018-08-01] MEDS: LISINOPRIL 10 MG TABLET PO (09:27)
[2018-08-01] MEDS: SODIUM CHLORIDE 0.9% FLUSH 10 ML IV ×2 (09:27→22:38)
--- NOTE | 2018-08-01 11:15 | PT.IPTN ---
Current Diagnoses Cerebral infarction, unspecified (07/31/18) Physical Therapy Treatment Note M2 PT-IP Current Condition Start: 07/31/18 14:31 Freq: NEEDED Status: Active Protocol: Document 07/31/18 14:00 RCC (Rec: 07/31/18 14:50 [facility] [id number]) Physical Therapy Current Condition Current Condition Evaluation Date 07/31/18 Treatment Diagnosis CVA, A-fib, impaired activity tolerance M3 PT-IP Subjective Start: 07/31/18 14:31 Freq: NEEDED Status: Active Protocol: Document 08/01/18 10:00 (Rec: 08/01/18 11:15 [id number]) Subjective Physical Therapy Visit Type Type Discharge Summary Visit Start Time 10:00 Visit Stop Time 10:25 Total Visit Minutes 25 Notes Pt is going to have MRI screen for his CVA. Number of CLIENT SERVICES REPRESENTATIVE Visits 0 Physical Therapy Visit Comments Patient Comments I think im at my baseline. Therapy Pain Assessment Pain Present Pain Present Denied Pain M4 PT-IP Mobility and Gait Start: 07/31/18 14:31 Freq: NEEDED Status: Active Protocol: Document 08/01/18 10:00 (Rec: 08/01/18 11:15 [id number]) PT-Bed Mobility Assessment Scooting Scooting to Edge of Bed Independent PT-Transfer Assessment Sit to and From Stand Sit to and from Stand Independent Equipment Transfer Assistive Device None Gait Belt Transfers Transfer Destination Chair Toilet Transfer Technique Stand Step Pivot Transfer Ability Level of Assist Independent Use of Upper Extremities Comments Mobility Comments Pt was up in his bedside chair upon assessment. Pt stood up and amb to bathroom under supervision. He was able to void with his urinal in standing. Pt showed very good balance without the need of UE support on surface. Gait Assessment Gait Gait Assistance Required: Independent Distance (Feet) 400 Assistive Devices Assistive Device Gait Belt Factors Limiting Gait Function Factors Limiting Gait Function Decreased Activity Tolerance Comments Gait Comments 400 ft without AD with a steady gait. Pt states I think im walking like baseline with the same speed. Stair Climbing Assessment Evaluation Level of Assist On Stairs Standby Assistance Devices Stair Climbing Assistive Devices Left Railing Technique/Endurance Stair Climbing Direction Ascend and Descend Stair Climbing Technique Step Over Step Number of Steps Climbed 3 Query Text: Stair Climbing Set # Repetitions (reps) 5 Comments Stair Climbing Comments no signs of LOB / acute distress. M5 PT-IP Objective Assessments Start: 07/31/18 14:31 Freq: NEEDED Status: Active Protocol: Document 07/31/18 14:00 RCC (Rec: 07/31/18 14:50 [facility] [id number]) Orientation Orientation/Cognition Level of Alertness Alert Orientation Name Age Birthday Month Date Year Day of Week Place Situation Gross Range of Motion Lower Extremity ROM Assessment Within Functional Limits Strength Lower Extremity Strength Assessment Within Functional Limits Coordination Assessment Assessment Finger to Nose Test Normal Performance Pronation/Supination Test Normal Performance Foot Tapping Test Normal Performance Heel on Vicente Test Normal Performance Sensation Assessment Sensation Gross Sensation WNL Light Touch Intact Muscle Tone Muscle Tone WNL Yes M6 PT-IP Treatment Start: 07/31/18 14:31 Freq: NEEDED Status: Active Protocol: Document 07/31/18 14:00 RCC (Rec: 07/31/18 14:[address] [facility] [id number]) Physical Therapy Treatment Education Education Provided Safety M7 PT-IP Assessment and Plan Start: 07/31/18 14:31 Freq: NEEDED Status: Active Protocol: Document 08/01/18 10:00 (Rec: 08/01/18 11:15 [id number]) PT Summary Assessment and Plan Summary Assessment Summary Pt cont presents equal strenght and ROM bilaterally for both UEs and LEs. Pt improved with amb distance and balance up to 400 ft without using AD. Pt was very steady the entire time and able to climb stairs x3 steps x 5 sets with L rail. Pt's HR and SpO2 also maintained steady as well. D/c from PT due to rehab goals and PLOF have met and recommend to d/c home when pt is medically stable . Frequency of Treatment Frequency Of Treatment Discharge Recommendations To Nursing Amount of Assist Needed 1 Person Assist Discharge Recommendations PT Discharge Recommendations Home
--- NOTE | 2018-08-01 14:08 | PC.NURSE ---
Shift summary: Alert and oriented X3. SBA with ambulation. NIH score=0. Denies chest pain/pressure/palpitations or shortness of breath. Had his MRI and ECHO today, reports pending. Lungs CTA. HR irregular, tele monitoring ongoing. Room air 99-100%. Able to make needs known but does not always call appropriately. Sitting up in chair visiting with his son. Chair alarm on, light in reach.
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
[2018-08-01] MEDS: ENOXAPARIN 40 MG/0.4 ML SYRINGE SUBCUT (17:47)
--- NOTE | 2018-08-01 17:58 | ST.IPIE ---
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 Willis Reason for Referral CVA Past Medical History Patient History Patient came in for left sided lower extremity weakness and imaging revealed subacute infarction involving the posterior aspect of the right frontal lobe. His weakness has since resolved. He was evaluated by and discharged from PT. Both the patient and his son report recent decline in cognition. Patient reports he takes Prevagen for his memory. [place] Language Language(s) Spoken in the Home [place] Citizen Educational Status Education Level PhD Occupational Status Occupation Status Retired Previous Therapy Previous Speech-Language Therapy No Oral Motor Examination Oral Motor Exam Completed Yes Results Uvula mildly deviates to left. Appears to have slight left facial droop at rest, though patient denies and the stye affecting his left eye makes it difficult to determine. No mouth droop during labial retraction. Otherwise, oral mech is within functional limits. - Informal Assessment Receptive Language Normal Yes Expressive Language Normal Yes Articulation Normal Yes Assessment Findings No standardized assessments completed. OT completed SLUMS. Patient scored 25/30 with difficulty on short term memory tasks. Also observed difficulty with trail making task. Informal assessment of word finding in structured tasks and in conversation revealed mild high level word finding impairment. Patient complains of difficulty remembering names and coming up with high level words in conversation such as [place]. No significant word finding issues were observed in conversation and patient was able to clearly and effectively express simple and complex thoughts. No dysarthria observed, speech intelligibility was 100%. Patient was oriented and spoke a lot about his children, their careers and families and recent events. He expressed concern with completing his taxes as he has been busy taking care of his . Earlimart swallow protocol was completed. A delayed cough was observed indicating possible risk for aspiration. A more thorough Clinical Swallow Evaluation is recommended tomorrow as it was not completed today due to time restraints. In addition, a more thorough cognitive evaluation is recommended in order to determine patient's safety to return home and care for his . Given today's assessment and collaboration with OT who observed difficulty with executive functions and problem solving, patient will likely need caregivers in the home to assist and ensure safety. Written education of word retrieval strategies was provided and reviewed with the patient. He expressed understanding. We also discussed outpatient speech therapy if he does not receive speech therapy elsewhere at discharge. - Receptive Language Yes/No Questions Skill Level WFL Following Directions - Verbal Skill Level WFL Defining Words Skill Level WFL Auditory Comprehension Skill Level WFL - Expressive Language Automatic Speech Skill Level WFL Sentence Closure Skill Level WFL Object Naming Skill Level WFL Oral Expression Skill Level WFL - Treatment Goals Short Term Goals Maverick will participate in high level naming tasks to improve word finding skills. Maverick will demonstrate understanding of word retrieval strategies. Ongoing cognitive and swallow assessment.
--- NOTE | 2018-08-01 17:58 | OT.IP.EVAL ---
Current Diagnoses Cerebral infarction, unspecified (07/31/18) Past Medical History (Last Updated 07/31/18 @ 12:41 by Patricia Muniz MD) Family history of dementia (Acute) Family history of CVA (Acute) Daily consumption of alcohol (Acute) Mixed hyperlipidemia (Acute) Atrial fibrillation (Acute) Acute CVA (cerebrovascular accident) (Acute) BPH (benign prostatic hyperplasia) (Acute) Essential hypertension (Acute) Surgical History (Last Updated 07/31/18 @ 12:41 by Patricia Muniz MD) History of appendectomy (Acute) History of tonsillectomy (Acute) Occupational Therapy Inpatient Evaluation/Re-Eval M1 PT/OT-IP Prior Functional Status Start: 08/01/18 17:07 Freq: NEEDED Status: Active Protocol: Document 08/01/18 13:35 [facility] (Rec: 08/01/18 17:58 [facility] [id number]) Medical Review Prior Functional Status Medical History Reviewed Yes Mobility and Gait indep. gait without device Activities of Daily Living and IADL's indep. I/ADLs, including driving Prior Functional Level (Other details) Pt taking care of his who recent had left leg fracture. Social History Household Members spouse Living Arrangements House Number of Floors (Floors) Two Floors Number of Stairs To Enter/Railing? ramped entry- 20 steps with unilat. rail down to his record room. Can live on main level (does not need to manage stairs). Home Environment Standard Height Toilet Walk in Shower Ramp Home Equipment Front Wheel Walker Additional Social History Comment Pt with acute onset LLE weakness, unable to WB on the LLE. He denied pain. CT was negative for acute findings. His recently had L leg fx and surgery, currently is the primary CG for her. His son and DIL will stay with them until Wednesday. Pt's son said recently having lots of falls this past week. M2 OT-IP Current Condition Start: 08/01/18 17:07 Freq: Status: Active Protocol: Document 08/01/18 13:35 [facility] (Rec: 08/01/18 17:58 [facility] [id number]) Occupational Therapy Current Condition Current Condition Evaluation Date 08/01/18 Treatment Diagnosis Subacute infarcts involving aspect of right frontal lobe Diagnosis Onset Date 07/31/18 M3 OT- IP Subjective and Pain Start: 02/18/19 17:07 Freq: Status: Active Protocol: Document 08/01/18 13:35 [facility] (Rec: 08/01/18 17:58 [facility] [id number]) OT- Subjective Occupational Therapy Visit Type Type Initial Evaluation Visit Start Time 13:35 Visit Stop Time 14:55 Total Visit Minutes 80 Occupational Therapy Visit Comments Patient Comments Pt willing to do OT eval , pt' s son present in the room. OT Pain Assessment Pain When Pain Assessed At Rest Pain Present Pain Present Denied Pain M4 OT- IP ADL's Start: 08/01/18 17:07 Freq: Status: Active Protocol: Document 08/01/18 13:35 [facility] (Rec: 08/01/18 17:58 [facility] [id number]) OT ADL-Grooming General Evaluation Grooming Ability Standby Assistance Comments OT Grooming Comments Pt able to walk to the cabinet to retrieve grooming items and able to independently do physical needs for grooming, pt however needing vc for problem solving for grooming task. Pt not able to figure out how to open tooth paste film even after giving him cues to look at toothbrush in hand. Pt able to state at home would use his tweezers ot pocket knife. OT ADL-Oral Care General Eval Oral Care Ability Independent OT ADL-Dressing General Eval Lower Body Dressing Ability Minimal Assistance Comments OT Dressing Comments Pt able to independently laurel/ doff socks and needing assist to get heel into his shoes. Pt states uses a shoe horn at home. OT ADL-Toileting Comments OT Toileting Comments No opportunity as pt just used bathroom prior to therapist's arrival. OT ADL-Bathing Comments OT Bathing Comments To assess tomorrow if appropriate. M5 OT- IP IADL's Start: 08/01/18 17:07 Freq: Status: Active Protocol: Document 08/01/18 13:35 [facility] (Rec: 08/01/18 17:58 [facility] [id number]) OT-Instrumental Activities of Daily Living Home Safety Awareness Ability to Problem Solve Emergency Unable to Problem Solve Situations Home Safety Comments When asked home safety situations mostly accurate, able to states unplug toaster in case of fire, able to accurately states how to use fire extinguisher, and after increased time able to state call 911, pt needing increased time to figure out to call physician or pharmacy if he ever ran out of medications for pill bottles, but however, when asking if someone calling to ask for your social security number , pt proceeded to state his number. Educated pt for safety awareness for personal information that strangers/ scammers may be calling him for and to be aware not to give out especially financial information. Driving Driving Comments Prior pt states did all IADL needs and driving. M6 OT- IP Functional Cognition Start: 08/01/18 17:07 Freq: Status: Active Protocol: Document 08/01/18 13:35 [facility] (Rec: 08/01/18 17:58 [facility] [id number]) Cognitive Factors Limiting Selfcare Function Cognitive Ability Level of Alertness Alert Patient Orientation Name Place Situation Attention Span Ability Capable of Focused Attention Capable of Sustained Attention Ability to Follow Commands Able to Follow Multi-Step Commands Memory Description Immediate Intact Short Term Impaired Penitentiary Intact Working Impaired Safety Awareness Underestimates Need for Assistance Problem Solving Ability Needs Assist to Identify Solutions Executive Function Ability Unable to Organize Plans Unable to Remember Details Cognitive Tests SLUMS Pt scored 25/30 normal is 27 therefore implies mild cognitive impairment. Pt mainly having difficulty with short term memory items. ACL Pt scored 4.6 out of 6.0 which implies may live alone with daily assistance to monitor safety and proved a daily allowance and assist with money management, monitor nutrition and help to get to appointments Cognitive Comments Cognitive Assessment Comments Pt scored 247 seconds and MOD vc to get through [place] Making B which per [employer] a score of greater than 180 seconds implies more likely to get into a car accident. Pt not able to recall sequence of number to letter and needing MODvc. At this time suggested to pt and son no driving. OT- Vision and Hearing OT- Vision Assessment Visual Acuity Glasses All The Time Visual Gonsales Impaired Vision Assessment Comments Pt has left eye stye which may also be affecting vision to upper left quadrant. Pt able to track, scan in all directions accurate. M7 OT- IP Mobility and Balance Start: 08/01/18 17:07 Freq: Status: Active Protocol: Document 08/01/18 13:35 [facility] (Rec: 08/01/18 17:58 [facility] [id number]) OT-Transfer Assessment Sit to and From Stand Sit to and from Stand Standby Assistance Transfers Transfer Ability Standby Assistance Technique Transfer Destination Chair Transfer Technique Stand Step Pivot Devices Transfer Assistive Devices Gait Belt Comments Mobility Comments Pt had lose of balance while walking over to window on his room but able to recover. Pt tends to have wide base of support. Pt states mainly wears shoes at home. Prior pt independently able to walk down to stairs and with PT and do steps with SBA. Notified Pt of pt's lose of balance. Tomorrow to see pt again fro dynamic balance and if pt continues to have loss of balance may request to have PT to re-eval. OT- Balance Assessment Sitting Balance and Reactions Static Sitting Balance Ability Normal Dynamic Sitting Balance Ability Normal Standing Balance and Reactions Static Standing Balance Ability Normal Dynamic Standing Balance Ability Fair M8 OT- IP Objective Assessments Start: 08/01/18 17:07 Freq: Status: Active Protocol: Document 08/01/18 13:35 [facility] (Rec: 08/01/18 17:58 [facility] [id number]) OT Gross Range of Motion Upper Extremity Range of Motion Assessment Within Functional Limits OT Strength Comments Strength Comments Not able to formally assess, but able to use for ADl needs, at least 3+/5. OT- Coordination Assessment Comments Coordination Comments Able to do set-up for grooming needs, to further assess tomorrow for in hand manipulation, hand as storage, etc... OT-Muscle Tone Assessment Muscle Tone WNL Yes OT Sensation Assessment Comments Summary Comments To be assessed. M9 OT- IP Assessment and Plan Start: 08/01/18 17:07 Freq: Status: Active Protocol: Document 08/01/18 13:35 [facility] (Rec: 08/01/18 17:58 [facility] [id number]) OT Summary Assessment and Plan Potential Rehabilitation Potential Good Analytic Complexity at Evaluation Low Summary OT Impairments Coordination Functional Cognition Functional Mobility Dressing Toileting Bathing Shower Transfers Progress Towards Goals Progressing Toward Goals Slow Progress due to Cognition Assessment Summary Pt low complexity and main barrier is decreased short term memory, difficulty with higher level cognitive function, left upper quadrant vision, and dynamic balance. Pt would benefit assist at home at this time as no recommended to drive at this time. Pt's son will be there to assist until Wednesday and suggested to watch pt do things, especially for IADL needs. Pt may also benefit from home health to check on safety needs at home and what pt will have to be able to do at home, as he takes care of his . In addition pt and son looking into hiring assist at home. Goals Grooming Goal Independent Dressing Goal Independent Toileting Goal Independent Bathing Goal Independent Toilet Transfer Goal Standby Assistance Shower Transfer Goal Standby Assistance Patient/Caregiver Education Goal Caregiver Independent Assisting Patient Days to Meet Goals 3 Frequency of Treatment Frequency Of Treatment Once a Day Treatment Plan OT Treatment Plan ADL Training Functional Cognition Training Functional Mobility Vision Retraining Patient/Family Education Discharge Planning Other Treatment Recommendations and Next OSCAR ochoa balance Treatment Focus Discharge Recommendations OT Discharge Recommendations Home with Assistance Home Health Home Equipment Needs Shower chair
--- NOTE | 2018-08-01 18:34 | PM.PN.1 ---
Subjective Date Patient Seen: 08/01/18 Interval history: Maverick Quigley is an 82-year-old male with a past medical history significant for hypertension, hyperlipidemia, chronic daily alcohol use, and BPH who presented for 1 day of left-sided weakness and was admitted for CVA rule out and found to have new onset atrial fibrillation. The patient is resting in bedside chair comfortably. He reports that his left-sided weakness has resolved completely. He continues to have positive Babinski on the left. He is doing well with physical therapy who recommend home without assistance. His MRI today demonstrated a subacute right frontal lobe CVA. He is on Eliquis for atrial fibrillation. His echocardiogram did not demonstrate a left atrial thrombus. He denies headache, chest pain, shortness of breath, cough, abdominal pain, nausea, vomiting, fever, chills, dysuria, diarrhea or constipation. He is voiding and eliminating without difficulty. He has a good appetite and has no difficulty swallowing. He is up ambulating without assistance. Exam Vital Signs (past 8 hours): - 08/01/18 13:23 08/01/18 15:40 Temperature 97.6 F 97.5 F L Pulse Rate 60 54 L Respiratory Rate 18 17 Blood Pressure 107/73 134/66 Pulse Oximetry 99 97 Oxygen Delivery Method Room Air Oxygen Flow Rate 0 Narrative Exam Narrative: General: Elderly gentleman sitting in bedside chair and in no acute distress, well-developed, well-nourished, appropriately interactive. HEENT: Normocephalic, atraumatic. External ears without defect. Pupils equal, round, and reactive to light. Anicteric sclerae, moist conjunctivae, and no lid lag. Neck: Supple with full range of motion. No jugular venous distension. No bruits. No lymphadenopathy or thyromegaly. Cardiovascular: Irregularly irregular without murmurs, rubs, or gallops appreciated Pulmonary: Clear to auscultation bilaterally without crackles, wheezes, or rhonchi. Normal respiratory effort with no use of accessory muscles. Abdomen: Soft, bowel sounds present nontender, nondistended. No hepatosplenomegaly or masses appreciated. Extremities: No clubbing, cyanosis, or edema. Skin: Normal temperature, turgor, and texture; no rash, ulcers, or subcutaneous nodules appreciated. Neurological: Cranial nerves grossly intact. Normal muscle strength, tone, and bulk in bilateral upper and lower extremities. Coordination and sensory function within normal limits. Positive Babinski on the left. No known gait impairment. Psychiatric: Normal mood and affect. Alert and oriented to person, place, and time. Objective Labs Result Diagrams: 08/01/18 04:52 08/01/18 04:52 Labs: Laboratory Results - last 24 hr 08/01/18 08/01/18 08/01/18 04:52 04:52 04:52 WBC 7.5 RBC 4.25 L Hgb 14.6 Hct 43.9 MCV 103.3 H MCH 34.4 H MCHC 33.3 RDW 13.4 Plt Count 147 L Neut % (Auto) 49.4 L Lymph % (Auto) 42.6 H Garvin % (Auto) 6.9 Eos % (Auto) 0.7 L Baso % (Auto) 0.4 Neut # (Auto) 3700 Lymph # (Auto) 3200 Garvin # (Auto) 500 Eos # (Auto) 0 Baso # (Auto) 0 Sodium 138 Potassium 3.8 Chloride 105 Carbon Dioxide 26 BUN 12 Creatinine 0.60 L Estimated GFR > 60.0 BUN/Creatinine Ratio 20.0 Glucose 87 Calcium 8.7 Magnesium 1.9 Triglycerides 69 Cholesterol 106 L LDL Cholesterol, Calc 44 HDL Cholesterol 48 TSH 08/01/18 04:52 WBC RBC Hgb Hct MCV MCH MCHC RDW Plt Count Neut % (Auto) Lymph % (Auto) Garvin % (Auto) Eos % (Auto) Baso % (Auto) Neut # (Auto) Lymph # (Auto) Garvin # (Auto) Eos # (Auto) Baso # (Auto) Sodium Potassium Chloride Carbon Dioxide BUN Creatinine Estimated GFR BUN/Creatinine Ratio Glucose Calcium Magnesium Triglycerides Cholesterol LDL Cholesterol, Calc HDL Cholesterol TSH 2.94 Assessment & Plan Assessment & Plan narrative: Maverick Quigley is an 82-year-old male with a past medical history significant for hypertension, hyperlipidemia, chronic daily alcohol use, and BPH who presented for 1 day of left-sided weakness and was admitted for CVA rule out and found to have new onset atrial fibrillation. 1. 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 Active. -He did not receive tPA as he was outside of the therapeutic window. -MRI/MRA demonstrated right frontal lobe subacute CVA. -Echocardiogram did not demonstrate intra-atrial shunt or left atrial appendage thrombus (although not specifically mentioned). -Fasting lipid panel within normal limits: Total cholesterol 106, triglycerides 69, LDL 44, HDL 48. -Continue Eliquis 5 mg twice daily. -PT and OT evals requested 2. New onset atrial fibrillation, present on admission. Stable. -Rate controlled without rate control medication. It is not clear how acute or chronic this syndrome is other than he has no recall of being told that he had this before. Continue to monitor on telemetry closely. -Echocardiogram did not demonstrate intra-atrial shunt or atrial thrombus (no comment regarding possible atrial thrombus or not). Will plan to discuss an outpatient plan and recommendations per photonics engineering technologist police sergeant and will likely discharge home tomorrow. -Continue aspirin 81 mg daily and Eliquis 5 mg twice daily. 3. Hypertension, chronic, present on admission. Stable. -Continue hydrochlorothiazide and enalapril. 4. Hyperlipidemia, chronic, present on admission. Stable. -Continue Lipitor 80 mg daily at bedtime. -Fasting lipid panel within normal limits as above. 5. BPH, chronic, present on admission. Stable. -Continue Avodart and Flomax. Straight cath if needed. Disposition: Likely discharge home tomorrow once plan in place for possible LAINE with cardioversion in next 4-6 weeks for new onset atrial fibrillation now on anticoagulation with Eliquis. Quality VTE Deep Vein Thrombosis/Pulmonary Embolism Present on Admission: No
[2018-08-01] MEDS: ATORVASTATIN 20 MG TABLET 80 MG PO (22:37)
[2018-08-02] VITALS (7 sets, daily range): BP systolic 112–139; BP diastolic 53–72; PULSE 55–79; RESP 14–18; TEMP 36.7–36.8; O2SAT 96–99
--- NOTE | 2018-08-02 03:18 | PC.NURSE ---
Coverage Analyst Note: 0020: Awake, up to bathroom independently. Pt states the doctor told him he does not need to call for assistance when he gets up. He is unhappy about the bed alarm and requests that it not be turned on. Pt is steady on his feet. He remains on telemetry. Vital signs are stable.
[2018-08-02] MEDS: FINASTERIDE 5 MG TABLET PO (08:50)
[2018-08-02] MEDS: ASPIRIN EC 81 MG TABLET PO (08:50)
[2018-08-02] MEDS: SODIUM CHLORIDE 0.9% FLUSH 10 ML IV (08:50)
[2018-08-02] MEDS: APIXABAN 5 MG TABLET PO (08:50)
[2018-08-02] MEDS: LISINOPRIL 10 MG TABLET PO (08:51)
[2018-08-02] MEDS: TAMSULOSIN 0.4 MG CAPSULE PO (08:51)
--- NOTE | 2018-08-02 10:16 | PM.DS.1 ---
History of Present Illness Date Patient Seen: 07/31/18 Chief complaint: thinks he had a stroke Narrative: Written by Dr. Muniz: This is an 82-year-old male presenting to the emergency department with a history of left-sided, lower extremity weakness since yesterday. He is unable to explain why he did not come in yesterday, but blames some car problems. Yesterday afternoon he went shopping because he was concerned about the worsening weather and by the time he was done bringing things into the house he was unable to stand on the left foot, and so instead of coming to the hospital he called his son and then went to bed. When he woke up this morning the left leg was still weak although it was not bothering him as much, at which point he presented to the emergency department. The initial CT scan does not show any acute stroke and other than apparent new onset atrial fibrillation no other abnormality is reported. When I see him he appears to have residual left-sided symptoms including a Babinski that is downgoing on the left. He lives in his own home off of [address] with his . He attends with Dr. Corley and he is quite sure that he has never had atrial fibrillation before. 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 He has a history of hypertension and hyperlipidemia but denies any history of diabetes mellitus, stroke or heart trouble. His father did have a stroke at a similar age. He drinks 3-4 shots of gin and whiskey per day. Not a smoker. He has recently been ?battling a stye? on the left upper eyelid. Discharge Providers Date of admission: 07/31/18 12:00 Primary care physician: Stoney Corley MD Consults: 07/31/18 12:33 Consult to Physical Therapy Evaluate & Treat Comment: Physician Instructions: Evaluate and Treat 07/31/18 12:57 Consult to Occupational Therapy Evaluate & Treat Comment: Physician Instructions: Evaluate and treat 07/31/18 13:34 Consult to Pastoral Services Routine Comment: [facility] 07/31/18 16:08 Consult to Primary Health Organisation Manager Routine Comment: Caring for at home, help w/ resources 08/01/18 14:16 Consult to Speech Therapy Evaluate & Treat Comment: Physician Instructions: Evaluate and treat 08/02/18 10:07 Consult to Physical Therapy Evaluate & Treat Comment: Physician Instructions: Evaluate and Treat 08/02/18 10:13 Consult to Physical Therapy Evaluate & Treat Comment: Physician Instructions: Evaluate and Treat Discharge provider: Khushbu Willis DO Discharge Date: 08/02/18 Summary Discharge Diagnosis: 1. 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 Improved. 2. New onset atrial fibrillation, acuity unknown, present on admission. Stable. 3. Hypertension, chronic, present on admission. Stable. 4. Hyperlipidemia, chronic, present on admission. Stable. 5. BPH, chronic, present on admission. Stable. Hospital Course: Maverick Quigley is an 82-year-old male with a past medical history significant for hypertension, hyperlipidemia, chronic daily alcohol use, and BPH who presented for 1 day of left-sided weakness and was admitted for CVA rule out and found to have new onset atrial fibrillation. 1. 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 Improved. -He did not receive tPA as he was outside of the therapeutic window. -MRI/MRA demonstrated right frontal lobe subacute CVA. -Echocardiogram did not demonstrate intra-atrial shunt or left atrial appendage thrombus (although not specifically mentioned). -Fasting lipid panel within normal limits: Total cholesterol 106, triglycerides 69, LDL 44, HDL 48. -Continued Eliquis 5 mg twice daily and discharged with prescription. Recommend outpatient follow-up with Cardiology to discuss possible LAINE with cardioversion versus long-term anticoagulation. -Continued PT and OT evals. 2. New onset atrial fibrillation, acuity unknown, present on admission. Stable. -Rate controlled without rate control medication. It is not clear how acute or chronic this syndrome is other than he has no recall of being told that he had this before. Continued to monitor on telemetry closely and was in rate controlled (40-70s) atrial fibrillation entire hospitalization. -Echocardiogram did not demonstrate intra-atrial shunt or atrial thrombus (no comment regarding possible atrial thrombus or not). Will plan to discuss an outpatient plan and recommendations per csm consultant digital product specialist and will likely discharge home tomorrow. -Continued aspirin 81 mg daily and Eliquis 5 mg twice daily. 3. Hypertension, chronic, present on admission. Stable. -Continued hydrochlorothiazide and enalapril. 4. Hyperlipidemia, chronic, present on admission. Stable. -Continued Lipitor 80 mg daily at bedtime. -Fasting lipid panel within normal limits as above. 5. BPH, chronic, present on admission. Stable. -Continued Avodart and Flomax. Status at Discharge Overall status at discharge: patient is progressing back to baseline Exam Vital Signs (past 8 hours): - 08/02/18 06:00 08/02/18 09:01 08/02/18 09:13 Temperature 98.0 F 98.0 F Pulse Rate 61 61 Respiratory Rate 16 16 Blood Pressure 112/72 118/53 L Pulse Oximetry 96 96 99 Oxygen Delivery Method Room Air Oxygen Flow Rate 0 Narrative Exam Narrative: General: Elderly gentleman sitting in bedside chair and in no acute distress, well-developed, well-nourished, appropriately interactive. HEENT: Normocephalic, atraumatic. External ears without defect. Pupils equal, round, and reactive to light. Anicteric sclerae, moist conjunctivae, and no lid lag. Neck: Supple with full range of motion. No jugular venous distension. No bruits. No lymphadenopathy or thyromegaly. Cardiovascular: Irregularly irregular without murmurs, rubs, or gallops appreciated Pulmonary: Clear to auscultation bilaterally without crackles, wheezes, or rhonchi. Normal respiratory effort with no use of accessory muscles. Abdomen: Soft, bowel sounds present nontender, nondistended. No hepatosplenomegaly or masses appreciated. Extremities: No clubbing, cyanosis, or edema. Skin: Normal temperature, turgor, and texture; no rash, ulcers, or subcutaneous nodules appreciated. Neurological: Cranial nerves grossly intact. Normal muscle strength, tone, and bulk in bilateral upper and lower extremities. Coordination and sensory function within normal limits. Positive Babinski on the left. No previous known gait impairment. Psychiatric: Normal mood and affect. Alert and oriented to person, place, and time. Objective Labs Result Diagrams: 08/01/18 04:52 08/01/18 04:52 Discharge Plan Discharge Plan Patient Disposition: Home Discharge comment: You're being discharged home. Recommend that you have PT outpatient and use an assist device with ambulation. You have been started on a potent blood thinner called Eliquis 5 mg twice daily for your new onset atrial fibrillation and likely embolic (blood clot) stroke. Please follow-up with your PCP, Dr. Corley, in the next 1-2 weeks regarding your CVA and hospitalization. Also recommend that you follow-up with Cardiology in 4-6 weeks to discuss possible LAINE cardioversion versus staying on long-term anticoagulation. Discharge Med Rec/Prescriptions Prescriptions: New aspirin 81 mg Tablet,Delayed Release (Dr/Ec) 81 mg PO DAILY Qty: 30 RF: 0 Eliquis 5 mg Tablet 5 mg PO BID 30 Days Qty: 60 RF: 0 Continued atorvastatin [Lipitor] 80 MG tablet 80 mg PO HS Qty: 0 RF: 0 tamsulosin [Flomax] 0.4 MG capsule,extended release 24hr 0.4 mg PO QDAY Qty: 0 RF: 0 lisinopril 10 mg Tablet 10 mg PO DAILY RF: 0 finasteride 5 mg Tablet 5 mg PO DAILY RF: 0 Follow up/Referrals: Stoney Corley MD [Primary Care Provider] - 1 Week (appt:08/05 check in at 1:[address] corley @ [facility] [phone] ) Provider Discharge Instructions Diet: Low-fat, Low-sodium and Low-cholesterol Activity: Activity as tolerated with assist device. Visit Report/Discharge Packet Instructions: DI for Atrial Fibrillation Discharge Data Primary Care Provider: Stoney Corley Attending Provider: Patricia Muniz Admit Date/Time: 07/31/18 12:00 Quality VTE Deep Vein Thrombosis/Pulmonary Embolism Present on Admission: No
--- NOTE | 2018-08-02 10:21 | CM.DANOTE ---
Addendum entered by Patsy Villa LPN 08/02/18 12:24: Have spoken again with pt, Henry and the therapy team. Henry confirms that he will return home Wednesday to get his medications and come back same day to continue to help his parents. He plans to stay until caregivers have been set up and will be going with his father to his appt with his PCP Dr. Kaur. Decision now: home today. Henry will be here this afternoon with expectation of taking his mother home. He is doubtful that his dad will be homebound. Dr. Willis is aware. Original Note: DCP: continued: Case discussed in Team Rounds. Dr. Willis indicated pt may d/c today but after discussion with the therapy team she has reintstated PT eval. She has also signed the Face/Face paperwork for HH services but it is unclear at this time if pt is homebound. Checked in with pt. He says Henry is currently taking his to her doctor's appt but will be here later. He says that Henry will be going home Wednesday as he needs to get his medications and he does not know if he is returning. Have a vm into Henry to discuss. Spoke again now with Dr. Willis for update. P: home with HH if pt will be homebound. Will plan for RN/OT/[employer] (and PT is recommended.) Dr. Willis does want pt to followup with PCP Dr. Kaur in one week. Will be following.
--- NOTE | 2018-08-02 12:30 | OT.IP.TRT ---
Current Diagnoses Cerebral infarction, unspecified (07/31/18) Occupational Therapy Treatment Note M2 OT-IP Current Condition Start: 08/01/18 17:07 Freq: Status: Active Protocol: Document 08/01/18 13:35 [facility] (Rec: 08/01/18 17:58 [facility] [id number]) Occupational Therapy Current Condition Current Condition Evaluation Date 08/01/18 Treatment Diagnosis Subacute infarcts involving aspect of right frontal lobe Diagnosis Onset Date 07/31/18 M3 OT- IP Subjective and Pain Start: 08/01/18 17:07 Freq: Status: Active Protocol: Document 08/02/18 12:09 [facility] (Rec: 08/02/18 12:30 [facility] [id number]) OT- Subjective Occupational Therapy Visit Type Type Treatment Note Visit Start Time 08:45 Visit Stop Time 09:30 Total Visit Minutes 45 Occupational Therapy Visit Comments Patient Comments Pt agreeable to work with Ot and claims feels much better from a good night's sleep. OT Pain Assessment Pain When Pain Assessed At Rest Pain Present Pain Present Denied Pain M4 OT- IP ADL's Start: 08/01/18 17:07 Freq: Status: Active Protocol: Document 08/02/18 12:09 [facility] (Rec: 08/02/18 12:30 [facility] [id number]) OT ADL-Grooming General Evaluation Grooming Ability Independent OT ADL-Oral Care General Eval Oral Care Ability Independent OT ADL-Dressing General Eval Upper Body Dressing Ability Independent Lower Body Dressing Ability Independent Standby Assistance Assistive Devices Dressing Assistive Devices Long Handled Shoe Horn Comments OT Dressing Comments Supervision of best way to laurel/doff EMBER hose. Pt needing use of shoe horn to assist to laurel shoes. OT ADL-Toileting General Evaluation Toileting Ability Independent OT ADL-Bathing Comments OT Bathing Comments Pt not wanting to shower unless he was certain that he was going home. M5 OT- IP IADL's Start: 08/01/18 17:07 Freq: Status: Active Protocol: Document 08/01/18 13:35 [facility] (Rec: 08/01/18 17:58 [facility] [id number]) OT-Instrumental Activities of Daily Living Home Safety Awareness Ability to Problem Solve Emergency Unable to Problem Solve Situations Home Safety Comments When asked home safety situations mostly accurate, able to states unplug toaster in case of fire, able to accurately states how to use fire extinguisher, and after increased time able to state call 911, pt needing increased time to figure out to call physician or pharmacy if he ever ran out of medications for pill bottles, but however, when asking if someone calling to ask for your social security number , pt proceeded to state his number. Educated pt for safety awareness for personal information that strangers/ scammers may be callig him for and to be aware not to give out especially financial information. Driving Driving Comments Prior pt states did all IADL needs and driving. M6 OT- IP Functional Cognition Start: 08/01/18 17:07 Freq: Status: Active Protocol: Document 08/02/18 12:09 [facility] (Rec: 08/02/18 12:30 [facility] [id number]) Cognitive Factors Limiting Selfcare Function Cognitive Ability Level of Alertness Alert Patient Orientation Name Age Birthday Month Date Year Day of Week Place Situation Attention Span Ability Capable of Focused Attention Capable of Sustained Attention Ability to Follow Commands Able to Follow Multi-Step Commands Memory Description Immediate Intact Short Term Impaired Reprographics Associate Intact Working Intact Problem Solving Ability Needs Assist to Identify Solutions Executive Function Ability Unable to Remember Details Cognitive Comments Cognitive Assessment Comments Pt able to recall 2/3 directions, and forgetting the last direction. Re-tested pt for Jackson Making B and score of 161 seconds versus time of 247 seconds. Yesterday neding MODvc and today able to complete task without any supervision or cues. OT- Vision and Hearing OT- Vision Assessment Vision Assessment Comments Pt still having difficulty with left peripheral vision. M7 OT- IP Mobility and Balance Start: 08/01/18 17:07 Freq: Status: Active Protocol: Document 08/02/18 12:09 [facility] (Rec: 08/02/18 12:30 [facility] [id number]) OT- Bed Mobility Assessment Rolling Type of Rolling Roll to Left Level of Assistance Independent Supine to Sit Supine to Sit Assist Independent Scooting Scooting to Edge of Bed Independent OT-Transfer Assessment Sit to and From Stand Sit to and from Stand Independent Transfers Transfer Ability Independent Technique Transfer Destination Bed Chair Toilet Transfer Technique Stand Step Pivot Devices Transfer Assistive Devices None Comments Mobility Comments Independent in the room, pt more stable with his shoes on. OT- Balance Assessment Sitting Balance and Reactions Static Sitting Balance Ability Normal Dynamic Sitting Balance Ability Normal Standing Balance and Reactions Static Standing Balance Ability Normal Dynamic Standing Balance Ability Good Balance Tests Coe Balance Test Score 44 out of 56 Query Text:Score Comments Other Balance Tests/Deviations/Treatment Pt score of 44/56 at score of : greater than 45 means no assistive device /less likely to fall, score greater than 35 safe ambulation with device. Pt states does have a walking stick that he uses at times when he walks/hikes. Therefore spoke to PT and was able to recieve PT eval orders so PT able to best assess which device to use or not. Did recommend to pt to get a rollinig cart to help bring in the groceries instead of making multiple trips at a time or trying to carry all the bags at the same time. M8 OT- IP Objective Assessments Start: 08/01/18 17:07 Freq: Status: Active Protocol: Document 08/01/18 13:35 [facility] (Rec: 08/01/18 17:58 [facility] [id number]) OT Gross Range of Motion Upper Extremity Range of Motion Assessment Within Functional Limits OT Strength Comments Strength Comments Not able to formally assess, but able to use for ADl needs, at least 3+/5. OT- Coordination Assessment Comments Coordination Comments Able to do set-up for grooming needs, to further assess tomorrow for in hand manipulation, hand as storage, etc... OT-Muscle Tone Assessment Muscle Tone WNL Yes OT Sensation Assessment Comments Summary Comments To be assessed. M9 OT- IP Assessment and Plan Start: 08/01/18 17:07 Freq: Status: Active Protocol: Document 08/02/18 12:09 [facility] (Rec: 08/02/18 12:30 [facility] [id number]) OT Summary Assessment and Plan Potential Rehabilitation Potential Good Analytic Complexity at Evaluation Low Summary OT Impairments Functional Cognition Progress Towards Goals Progressing Toward Goals Assessment Summary Pt doing better with functional cognition today however still having some difficulty with short term memory. Pt would benefit from son to supervise and assist as needed and continue to assess safety for all needs especially if pt trying to drive again. Goals Shower Transfer Goal Independent Days to Meet Goals 1 Frequency of Treatment Frequency Of Treatment Once a Day Treatment Plan OT Treatment Plan Functional Cognition Training Discharge Recommendations OT Discharge Recommendations Home with Assistance Home Health Home Equipment Needs Shower chair
--- NOTE | 2018-08-02 14:05 | PT.IIE ---
Current Diagnoses Cerebral infarction, unspecified (07/31/18) Surgical History (Last Updated 07/31/18 @ 12:41 by Patricia Muniz MD) History of appendectomy (Acute) History of tonsillectomy (Acute) Medical History (Last Updated 07/31/18 @ 12:41 by Patricia Muniz MD) Family history of dementia (Acute) Family history of CVA (Acute) Daily consumption of alcohol (Acute) Mixed hyperlipidemia (Acute) Atrial fibrillation (Acute) Acute CVA (cerebrovascular accident) (Acute) BPH (benign prostatic hyperplasia) (Acute) Essential hypertension (Acute) Physical Therapy Inpatient Evaluation/Re-Eval M1 PT/OT-IP Prior Functional Status Start: 07/31/18 14:31 Freq: NEEDED Status: Active Protocol: Document 07/31/18 14:00 [facility] (Rec: 07/31/18 14:50 [facility] [id number]) Medical Review Prior Functional Status Medical History Reviewed Yes Mobility and Gait indep. gait without device Activities of Daily Living and IADL's indep. I/ADLs, including driving Social History Household Members spouse Living Arrangements House Number of Floors (Floors) Two Floors Number of Stairs To Enter/Railing? ramped entry- 20 steps with unilat. rail down to his record room. Can live on main level (does not need to manage stairs). Home Environment Standard Height Toilet Walk in Shower Ramp Home Equipment Front Wheel Walker Additional Social History Comment Pt with acute onset LLE weakness, unable to WB on the LLE. He denied pain. CT was negative for acute findings. His recently had L leg fx and surgery, currently is the primary CG for her. His son and DIL will stay with them until Wednesday. M1 PT/OT-IP Prior Functional Status Start: 08/01/18 17:07 Freq: NEEDED Status: Active Protocol: Document 08/01/18 13:35 [facility] (Rec: 08/01/18 17:58 [facility] [id number]) Medical Review Prior Functional Status Medical History Reviewed Yes Mobility and Gait indep. gait without device Activities of Daily Living and IADL's indep. I/ADLs, including driving Prior Functional Level (Other details) Pt taking care of his who recent had left leg fracture. Social History Household Members spouse Living Arrangements House Number of Floors (Floors) Two Floors Number of Stairs To Enter/Railing? ramped entry- 20 steps with unilat. rail down to his record room. Can live on main level (does not need to manage stairs). Home Environment Standard Height Toilet Walk in Shower Ramp Home Equipment Front Wheel Walker Additional Social History Comment Pt with acute onset LLE weakness, unable to WB on the LLE. He denied pain. CT was negative for acute findings. His recently had L leg fx and surgery, currently is the primary CG for her. His son and DIL will stay with them until Wednesday. Pt's son said recently having lots of falls this past week. M2 PT-IP Current Condition Start: 07/31/18 14:31 Freq: NEEDED Status: Active Protocol: Document 08/02/18 11:04 [facility] (Rec: 08/02/18 14:05 [facility] [id number]) Physical Therapy Current Condition Current Condition Evaluation Date 08/02/18 Treatment Diagnosis CVA, A-fib, impaired activity tolerance M3 PT-IP Subjective Start: 07/31/18 14:31 Freq: NEEDED Status: Active Protocol: Document 08/02/18 11:04 [facility] (Rec: 08/02/18 14:05 [facility] [id number]) Subjective Physical Therapy Visit Type Type Initial Evaluation Visit Start Time 11:04 Visit Stop Time 11:45 Total Visit Minutes 41 Notes Request for evaluation for need of assistive device for ambulation. Number of [employer] Visits 0 Physical Therapy Visit Comments Patient Comments Patient does not feel that he needs assistive device for ambulation. Has a walking stick that he uses when he has to go on uneven ground. Patient Goals Has major concerns of taking care of his and tries to perform all necessary household activities including grocery shopping. Therapy Pain Assessment Pain Present Pain Present Denied Pain M4 PT-IP Mobility and Gait Start: 07/31/18 14:31 Freq: NEEDED Status: Active Protocol: Document 08/02/18 11:04 [facility] (Rec: 08/02/18 14:05 [facility] [id number]) PT-Bed Mobility Assessment Supine to Sit Supine to Sit Independent Scooting Scooting to Edge of Bed Independent PT-Transfer Assessment Sit to and From Stand Sit to and from Stand Independent Equipment Transfer Assistive Device None Gait Belt Transfers Transfer Destination Bed Chair Transfer Ability Level of Assist Independent Comments Mobility Comments Pt showing good judgement and form with transitional activities. Gait Assessment Gait Gait Assistance Required: Independent Distance (Feet) 600 Assistive Devices Assistive Device Gait Belt Straight Cane Orthotic/Prosthetic Devices or Brace: No Gait Deviations General Gait Pattern Within Normal Limits Comments Gait Comments Ambulation on the level stable . Alternated between walking with and without SPC. Castle proper rhythm in walking with cane but ambulated just as well without. Pt ambulated with and without SPC and changed speeds, directions, quick stops and circles. Performed best without use of SPC. In changing directions in walking , using cane caused some confusion. Stair Climbing Assessment Evaluation Level of Assist On Stairs Standby Assistance Devices Stair Climbing Assistive Devices None Straight Cane Left Railing Technique/Endurance Stair Climbing Direction Ascend and Descend Stair Climbing Technique Step Over Step Number of Steps Climbed 3 Query Text: Stair Climbing Set # Repetitions (reps) 2 Comments Stair Climbing Comments Climbed stairs with and without cane. Performed better without use of cane and using the left hand railing. PT-Balance Assessment Standing Balance and Reactions Static Standing Balance Ability Good Dynamic Standing Balance Ability Good Device Used none Balance Tests Single Limb Standing <3sec Comments Other Balance Tests/Deviations/Treatment Patient challenged in standing : all directions and performed well with good reactions of recovery with no assistive device. Functional Assessments Other Functional Tests Performed Walking on level and carrying object with one or both hands and placing object at different heights between waist and overhead. Performed well. M5 PT-IP Objective Assessments Start: 07/31/18 14:31 Freq: NEEDED Status: Active Protocol: Document 08/02/18 11:04 [facility] (Rec: 08/02/18 14:05 [facility] [id number]) Orientation Orientation/Cognition Level of Alertness Alert Orientation Name Age Birthday Month Date Year Day of Week Place Situation Gross Range of Motion Upper Extremity ROM Assessment Within Functional Limits Lower Extremity ROM Assessment Within Functional Limits Strength Lower Extremity Strength Assessment Within Functional Limits M6 PT-IP Treatment Start: 07/31/18 14:31 Freq: NEEDED Status: Active Protocol: Document 08/02/18 11:04 NFW (Rec: 08/02/18 14:05 [facility] [id number]) Physical Therapy Treatment Other Treatments Other Treatment Performed Discussion pacing of activities. Asking for help. Removing any scatter rugs. Using of walking stick outside of home. All also discussed with patient's son. M7 PT-IP Assessment and Plan Start: 07/31/18 14:31 Freq: NEEDED Status: Active Protocol: Document 08/02/18 11:04 [facility] (Rec: 08/02/18 14:05 NFW [id number]) PT Summary Assessment and Plan Potential Status of Condition at Evaluation Stable Summary Assessment Summary Do not feel that the patient will benefit at this time with a SPC in the home. He performed better without the use of the cane. He was able to easily walk 600' changing directions, speeds and going up and down stairs. He is ready for discharge home as planned by CM. Frequency of Treatment Frequency Of Treatment Discharge Discharge Recommendations PT Discharge Recommendations Home with Assistance
--- NOTE | 2018-08-02 15:17 | PC.NURSE ---
Discharge: Tele dc'd. IV dc'd intact- hemostasis achieved after holding pressure for a couple minutes, pressure dressing applied. Reviewed all d/c instructions with patient and his son. Provided with follow up info (appt w/ Dr Kaur) and encouraged them to talk with Dr Kaur re: a cardiology referral/recommendation. Given education info re: stroke, A-fib and both new meds. Reviewed symptoms with which to call 911. Instructed to monitor for s/sx excessive bleeding. Made aware that 2 scripts were sent to [facility] in [place], reviewed med list thoroughly. Patient and son Henry verbalized understanding of instructions and stated no further questions. All belongings sent with patient (glasses, clothing and shoes). Wheeled out to private vehicle accompanied by nursing staff.
== END 2018-08-02 15:27 | disposition home health service (06) | DRG 65 ==
LOC: ED 11:43 → AC 12:22
PROVIDERS: Nurse Practitioner Adult Health; Admitting Provider Family Medicine; Emergency Provider Emergency Medicine; PCP Internal Medicine; Visit Provider Family Medicine
DX: I63.441 Cerebral infarction due to embolism of right cerebellar artery (principal); G81.94 Hemiplegia, unspecified affecting left nondominant side; I48.91 Unspecified atrial fibrillation; I10 Essential (primary) hypertension; E78.5 Hyperlipidemia, unspecified; N40.0 Benign prostatic hyperplasia without lower urinary tract symptoms
CPT/HCPCS: 36415; 36591; 70450; 70553; 80048; 80061; 83735; 84443; 85025; 85610; 85730; 92523; 93005; 93306; 94762; 97116; 97127; 97161; 97165; 97530; 97535; 99283; 99285; J1650

== ENCOUNTER → 2018-10-26 06:58 | Outpatient (CLI) | payer MEDICARE, SELFPAY ==
[2018-07-31 12:47] VITALS: BMI 25.3
[2018-10-26 07:40] LABS: Cholesterol 137 mg/dL (140-199); HDL Cholesterol 67 mg/dL (40-60); LDL Cholesterol Calculated 56 mg/dL (<100); Magnesium 1.9 mg/dL (1.6-2.3); Triglycerides 70 mg/dL (35-150)
[2018-10-26 08:14] LABS: Thyroid Stimulating Hormone 3.04 uIU/mL (0.47-4.68)
== END ==
PROVIDERS: PCP Internal Medicine; Visit Provider Internal Medicine Cardiovascular Disease
DX: E78.5 Hyperlipidemia, unspecified (principal); I10 Essential (primary) hypertension
CPT/HCPCS: 36415; 80061; 83735; 84443

== ENCOUNTER → 2018-11-24 07:55 | Outpatient (CLI) | payer MEDICARE, SELFPAY ==
[2018-07-31 12:47] VITALS: BMI 25.3
--- NOTE | 2018-11-24 | DI.NM.S_ITS ---
PROCEDURE: NM ELSIE PERF SPECT R&S PHARM Rest and pharmacological stress myocardial perfusion SPECT with gated imaging and ejection fraction RADIOPHARMACEUTICAL: 25.2 mCi Tc-99m tetrafosmin IV at rest and 25.5 mCi Tc-99m tetrafosmin IV at peak effect of pharmacological stress. [id number] was performed. INDICATIONS: Persistent atrial fibrillation TECHNIQUE: Radiopharmaceutical was injected at peak stress test, and also at rest. SPECT images were obtained. SPECT myocardial perfusion images were displayed in short axis, horizontal long axis, and vertical long axis views. Gated images were reviewed using [email or web address] software. COMPARISON: None. CARDIAC STRESS: A pharmacologic stress test was performed under the supervision of an attending staff, using an infusion of lexiscan 0.4mg IV X1. Hemodynamic data: There is normal blood pressure and heart rate response to pharmacologic stress. Symptoms: The patient denied anginal chest pain. Aminophylline: none EKG: Atrial fibrillation present during the entire study. No diagnostic changes of ischemia; no ectopy. FINDINGS: Raw data: There is good myocardial uptake of radiotracer. No significant motion artifacts. Jjep-jy-hwiyw ratio is 0.98 (normal is less than 0.38 for tetrafosmin tracer). Left ventricle function: Gated images demonstrate normal left ventricular wall thickening. No segmental wall motion abnormalities. No transient ischemic dilation; TID is 0.98 (normal less than 1.3). Left ventricle resting end diastolic volume is 145 mL. Left ventricle stress ejection fraction is 51%; normal range is above 45%. Myocardial perfusion: There is a moderately severe fixed defect of the inferior wall extending to the apex that doesn't resolve with prone imaging suggesting prior non-transmural infarction. No ischemia. SSS 5. IMPRESSION: Abnormal nuclear stress test consistent with prior infarct and no significant ischemia. 1) Prior non-transmural infarct of the inferior wall extending to the apex. There is a moderately severe fixed defect of the inferior wall extending to the apex that doesn't resolve with prone imaging. No significant ischemia. SSS 5. 2) Normal left ventricular size, wall motion, and systolic function (EF post stress 51%). 3) No ECG evidence of ischemia with lexiscan. Atrial fibrillation present during the entire study. 4) No angina during the study. 5) No prior nuclear stress test available for comparison. Dictated by: Antonio Escudero MD on 11/28/2018 at 13:00 Approved by: Antonio Escudero MD on 11/28/2018 at 13:04
--- NOTE | 2018-11-24 09:18 | PM.TREADMILL ---
Cardiac Stress Test Report Referral & Results Date Patient Seen: 11/24/18 Time Patient Seen: 09:00 Requesting provider: Rose Vann Indication: Atrial fibrillation Rest ECG: Atrial fibrillation Procedure Note: A standard treadmill exam was attempted but converted to walking Lexiscan due to shuffling gait not compatible with the treadmill. After both written and verbal informed consent the patient had an IV started by the diagnostic imaging RN and then was hooked up to the treadmill monitoring system. The patient was placed on the treadmill at 0.8 mile an hour with no elevation and was then injected with the Clarice scan material. The Cardiolite was then immediately administered. The patient spent an additional 2-3 minutes on the treadmill before being returned to the [place] in the supine position. The patient had a normal response to all infused materials. Impression: Successful Lexiscan. Resting EKG demonstrated atrial fibrillation with occasional PVCs. Will wait perfusion imaging. Patient tolerated the procedure well. Please note: Actual ECG tracings can be found in the PACS system.
== END ==
PROVIDERS: PCP Internal Medicine; Visit Provider Internal Medicine Cardiovascular Disease
DX: I48.1 Persistent atrial fibrillation (principal)
CPT/HCPCS: 78452; 93016; 93017; 93018; A9502; J2785

== ENCOUNTER → 2019-04-07 09:15 | Outpatient (CLI) | payer MEDICARE, SELFPAY ==
[2018-07-31 12:47] VITALS: BMI 25.3
[2019-04-07 09:34] LABS: Bilirubin Urine UA NEGATIVE (NEGATIVE); Color Urine UA YELLOW; Glucose Urine UA NEGATIVE (Negative); Ketones Urine UA NEGATIVE (NEGATIVE); Leukocyte Esterase Urine UA 3+ (NEGATIVE); Nitrite Urine UA NEGATIVE (Negative); Occult Blood Urine UA 2+ (Negative); Protein Urine UA 2+ (Negative); Urobilinogen Urine UA 0.2 E.U./dL (0.2)
[2019-04-07 09:35] LABS: Appearance Urine UA Cloudy; Culture Indicated Urine Specimen Cultured
[2019-04-07 09:41] LABS: RBC Urine 5-10/HPF (0-5/HPF)
[2019-04-07 09:42] LABS: Bacteria Urine Moderate (10-30); Squamous Epithelial Cell Urine 1-5 /HPF (0-5/HPF); WBC Urine >100/HPF (0-5/HPF)
== END ==
PROVIDERS: PCP Internal Medicine; Visit Provider Internal Medicine
DX: R35.0 Frequency of micturition (principal)
CPT/HCPCS: 81001; 87077; 87086; 87185; 87186

== ENCOUNTER → 2019-08-29 08:01 | Outpatient (CLI) | payer MEDICARE, SELFPAY ==
[2018-07-31 12:47] VITALS: BMI 25.3
[2019-08-29 11:15] LABS: Alanine Aminotransferase 17 IU/L (<50); Albumin 3.9 g/dL (3.5-5.0); Albumin Globulin Ratio 1.4 (1.0-2.8); Alkaline Phosphatase 83 U/L (38-126); Aspartate Aminotransferase 24 IU/L (17-59); Bilirubin Total 2.5 mg/dL (0.2-1.3); Blood Urea Nitrogen 16 mg/dL (9-20); Calcium 9.6 mg/dL (8.4-10.2); Carbon Dioxide 31 mmol/L (22-32); Chloride 103 mmol/L (98-107); Cholesterol 138 mg/dL (140-199); Estimated Glomerular Filt Rate > 60.0 mL/min (>60); Globulin 2.7 g/dL (1.7-4.1); Glucose 96 mg/dL (80-110); HDL Cholesterol 48 mg/dL (40-60); HEMOLYSIS < 15 (0-50); LDL Cholesterol Calculated 75 mg/dL (<100); Potassium 4.1 mmol/L (3.4-5.1); Sodium 140 mmol/L (137-145); Total Protein 6.6 g/dL (6.3-8.2); Triglycerides 76 mg/dL (35-150)
== END ==
PROVIDERS: PCP Internal Medicine; Referring Provider Internal Medicine Cardiovascular Disease; Visit Provider Internal Medicine Cardiovascular Disease
DX: E78.5 Hyperlipidemia, unspecified (principal)
CPT/HCPCS: 36415; 80053; 80061

== ENCOUNTER → 2019-11-24 12:32 | Outpatient (CLI) | payer MEDICARE, SELFPAY ==
[2018-07-31 12:47] VITALS: BMI 25.3
--- NOTE | 2019-11-24 | DI.US.S_ITS ---
PROCEDURE: US RENAL COMPLETE INDICATIONS: URINARY RETENTION TECHNIQUE: Real-time scanning was performed of the kidneys and bladder, with image documentation. COMPARISON: [facility], CT, CT CHEST ABDOMEN PELVIS WITHOUT CONTRAST, 12/12/2018, 15:08. [facility], US, US RENAL COMPLETE, 04/25/2019, 10:51. FINDINGS: Kidneys: Kidneys are normal in size. Right kidney measures 10.4 cm long; left kidney measures 10.1 cm long. Right renal cortical thickness is 1.5 cm; left renal cortical thickness is 1.3 cm. Renal cortical echotexture is normal. Mild right hydronephrosis which persists post void imaging.. No suspicious solid mass lesions. 2.3 cm superior pole left renal cyst redemonstrated. Bladder: Pre-void bladder volume is 816 mL. Post-void residual is a 816 mL. Pre-void images demonstrate no intraluminal masses or stones. On pre-void images, 745 ureteral jets are noted with color Doppler interrogation. (Of note, ureteral jets may not be detectable in up to 25% of cases due to insufficient differences in specific gravity between ureteral and bladder urine). Miscellaneous: No free pelvic fluid. IMPRESSION: 1. Persistent mild right hydronephrosis which persists with post void imaging. 2. Significant postvoid residual with bladder wall trabeculations suggesting chronic bladder partial outlet obstruction. Dictated by: Matthew DÍAZ Interpreted: Aidee Lantigua MD on 11/24/2019 at 14:37 Approved by: Aidee Lantigua MD, PhD on 11/24/2019 at 15:12
[2019-11-24 14:44] LABS: BUN Creatinine Ratio 20.7 (6-22); Blood Urea Nitrogen 17 mg/dL (9-20); Calcium 9.1 mg/dL (8.4-10.2); Carbon Dioxide 30 mmol/L (22-32); Chloride 102 mmol/L (98-107); Estimated Glomerular Filt Rate > 60.0 mL/min (>60); Glucose 103 mg/dL (80-110); HEMOLYSIS < 15 (0-50); Potassium 4.3 mmol/L (3.4-5.1); Sodium 138 mmol/L (137-145)
== END ==
PROVIDERS: PCP Internal Medicine; Referring Provider Physician Assistant; Visit Provider Physician Assistant
DX: R33.9 Retention of urine, unspecified (principal); N28.1 Cyst of kidney, acquired; N13.30 Unspecified hydronephrosis; N32.89 Other specified disorders of bladder
CPT/HCPCS: 36415; 76770; 80048

== ENCOUNTER → 2020-04-24 07:20 | Outpatient (CLI) | payer MEDICARE, SELFPAY ==
[2018-07-31 12:47] VITALS: BMI 25.3
[2020-04-24 08:27] LABS: Add Manual Diff / Slide Review NO; Basophils Absolute Auto 0 /uL (0-100); Basophils Percent Auto 0.6 % (0-2); Eosinophils Absolute Auto 100 /uL (0-450); Hematocrit 42.6 % (41-53); Hemoglobin 14.3 g/dL (13.5-17.5); Lymphocytes Absolute Auto 3400 /uL (1100-4500); Lymphocytes Percent Auto 40.6 % (25-40); Mean Corpuscular HGB Conc 33.5 % (30-36); Mean Corpuscular Hemoglobin 32.7 PG (26-34); Mean Corpuscular Volume 97.8 fL (80-100); Monocytes Absolute Auto 500 /uL (0-900); Monocytes Percent Auto 5.5 % (3-14); Neutrophils Absolute Auto 4400 /uL (1500-7000); Neutrophils Percent Auto 52.3 % (50-75); Platelet Count 159 X10^3/uL (150-400); Red Blood Cell Count 4.36 X10^6/uL (4.5-5.9); Red Cell Distribution Width 14.1 % (11.6-14.8); White Blood Cell Count 8.3 X10^3/uL (4.5-11.0)
[2020-04-24 08:32] LABS: Alanine Aminotransferase 25 IU/L (<50); Albumin 3.7 g/dL (3.5-5.0); Albumin Globulin Ratio 1.5 (1.0-2.8); Alkaline Phosphatase 95 U/L (38-126); Aspartate Aminotransferase 32 IU/L (17-59); BUN Creatinine Ratio 23.5 (6-22); Bilirubin Total 2.1 mg/dL (0.2-1.3); Blood Urea Nitrogen 19 mg/dL (9-20); Calcium 9.2 mg/dL (8.4-10.2); Carbon Dioxide 33 mmol/L (22-32); Chloride 105 mmol/L (98-107); Cholesterol 113 mg/dL (140-199); Estimated Glomerular Filt Rate > 60.0 mL/min (>60); Globulin 2.5 g/dL (1.7-4.1); Glucose 99 mg/dL (80-110); HDL Cholesterol 45 mg/dL (40-60); HEMOLYSIS < 15 (0-50); LDL Cholesterol Calculated 57 mg/dL (<100); Potassium 4.2 mmol/L (3.4-5.1); Sodium 140 mmol/L (137-145); Total Protein 6.2 g/dL (6.3-8.2); Triglycerides 57 mg/dL (35-150)
== END ==
PROVIDERS: PCP Internal Medicine; Referring Provider Internal Medicine; Visit Provider Internal Medicine
DX: Z78.9 Other specified health status (principal); G31.84 Mild cognitive impairment of uncertain or unknown etiology; I48.91 Unspecified atrial fibrillation; R17 Unspecified jaundice
CPT/HCPCS: 36415; 80053; 80061; 85025

== ENCOUNTER → 2020-05-23 12:05 | Outpatient (CLI) | payer MEDICARE, SELFPAY ==
[2018-07-31 12:47] VITALS: BMI 25.3
--- NOTE | 2020-05-23 12:33 | DI.CT.S_ITS ---
PROCEDURE: CT ABDOMEN PELVIS WO CON INDICATIONS: Other hydronephrosis/Lab TECHNIQUE: Noncontrast 5 mm thick sections acquired from the diaphragms to the symphysis. 5 mm coronal and sagittal reformats were then performed. For radiation dose reduction, the following was used: automated exposure control, adjustment of mA and/or kV according to patient size. COMPARISON: [facility], CT, CT CHEST ABDOMEN PELVIS WITHOUT CONTRAST, 12/12/2018, 15:08. FINDINGS: Image quality: Excellent. ABDOMEN: Lung bases: Lung bases are clear. Mild cardiomegaly. Minimal pericardial effusion. Pacemaker. Solid organs: Liver is normal in size. Chronic benign liver calcification. Gallbladder is surgically absent. Pancreas is normal in contours. Spleen is normal in size. No adrenal nodules. Kidneys are normal in size, without hydronephrosis or nephrolithiasis. Peritoneum and bowel: Unenhanced bowel loops demonstrate normal wall thickness and caliber. No free fluid or air. Moderately large fecal debris. Nodes and vessels: No retroperitoneal or mesenteric adenopathy by size criteria. Aorta and inferior vena cava are normal in caliber. Miscellaneous: No ventral hernias. PELVIS: Genitourinary: Markedly enlarged prostate with unchanged large impression from the prostate on the base of the bladder. Resultant diffuse bladder wall thickening. Miscellaneous: No inguinal hernias or adenopathy. Bones: No suspicious bony lesions. No vertebral body compression fractures. Lumbar degenerative change. At least moderate canal stenosis at L4-L5. IMPRESSION: 1. Markedly enlarged prostate with prominent extrinsic compression on the base of the bladder by the prostate and resultant diffuse bladder wall thickening. 2. No renal stone, ureteral stone, or hydronephrosis. 3. Moderately large fecal load. 4. At least moderate canal stenosis at L4-L5. Dictated by: Elio Ghotra M.D. on 05/23/2020 at 13:38 Approved by: Elio Ghotra M.D. on 05/23/2020 at 13:44
[2020-05-23 13:11] LABS: BUN Creatinine Ratio 22.9 (6-22); Blood Urea Nitrogen 19 mg/dL (9-20); Calcium 9.2 mg/dL (8.4-10.2); Carbon Dioxide 31 mmol/L (22-32); Chloride 103 mmol/L (98-107); Estimated Glomerular Filt Rate > 60.0 mL/min (>60); Glucose 140 mg/dL (80-110); HEMOLYSIS 19 (0-50); Potassium 4.1 mmol/L (3.4-5.1); Sodium 137 mmol/L (137-145)
== END ==
PROVIDERS: PCP Internal Medicine; Referring Provider Urology; Visit Provider Urology
DX: N40.0 Benign prostatic hyperplasia without lower urinary tract symptoms (principal); R33.9 Retention of urine, unspecified; M48.061 Spinal stenosis, lumbar region without neurogenic claudication
CPT/HCPCS: 36415; 74176; 80048

== ENCOUNTER 2020-10-09 07:58 | Emergency (ER) | payer MEDICARE, SELFPAY ==
[2018-07-31 12:47] VITALS: BMI 25.3
[2020-10-09 08:00] VITALS: BP 124/60; PULSE 57; RESP 18; TEMP 37; O2SAT 97; BMI 22.7
--- NOTE | 2020-10-09 08:01 | DI.RAD.S_ITS ---
PROCEDURE: XR RIBS RT MIN 3V W CXR 1V INDICATIONS: Right-sided chest pain after fall yesterday TECHNIQUE: 2 views of the right ribs were acquired, along with a single view chest. COMPARISON: None. FINDINGS: Surgical changes and devices: Left-sided implanted telemetry monitor. Bones and chest wall: No fractures or dislocations. No suspicious bony lesions. Overlying soft tissues appear unremarkable. There is a right lateral 7th rib fracture, acute, mildly displaced. Lungs and pleura: No pleural effusions or pneumothorax. Lungs appear clear. Mediastinum: Mediastinal contours appear normal. Heart size is normal. IMPRESSION: Right acute 7th rib fracture, mildly displaced, without pneumothorax. Dictated by: Pratik Cole M.D. on 10/09/2020 at 8:40 Approved by: Pratik Cole M.D. on 10/09/2020 at 8:42
--- NOTE | 2020-10-09 08:06 | ED.GENADULT ---
HPI - General Adult General Chief complaint: Fall Stated complaint: injury to right chest due to fall yest. Time Seen by Provider: 10/09/20 08:01 Source: patient Mode of arrival: Ambulatory Limitations: no limitations History of Present Illness HPI narrative: 84-year-old male who is on anticoagulation who is here for evaluation of right-sided chest pain. He states that yesterday he was at his normal state health. He got out of the shower. He was standing in front of a stool and felt like he got a little lightheaded and fell over landing on his tub which is separate from the shower. He did not hit his head. There was no loss of consciousness. He sustained some skin tears to his arms. He is here because he has got pain to palpation of the right side of his chest in pain when he takes a deep breath. He is not having left-sided chest pain. No headache. No neck pain. No hip pain. He ambulated into the emergency department. Related Data Home Medications Medication Instructions Recorded Confirmed atorvastatin [Lipitor] 80 mg PO HS #0 10/12/12 09/20/20 tamsulosin [Flomax] 0.4 mg PO QDAY #0 10/12/12 09/20/20 finasteride 5 mg PO DAILY 07/31/18 09/20/20 lisinopril 10 mg PO DAILY 07/31/18 09/20/20 rivaroxaban 20 mg tablet 20 mg PO DAILY tab 07/25/20 09/20/20 Previous Rx's Medication Instructions Recorded metoprolol succinate 25 mg 12.5 mg PO DAILY #45 tab 09/13/20 tablet,extended release 24 hr Allergies Allergy/AdvReac Type Severity Reaction Status Date / Time No Known Drug Allergies Allergy Verified 09/20/20 09:44 Review of Systems Constitutional Constitutional: Denies fatigue, Denies fever(s), Denies frequent falls and Denies headache(s) Eyes Eyes: Denies change in vision ENT Ears, Nose, Mouth, and Throat: Denies vertigo, Denies headache(s) and Denies sore throat Cardiovascular Cardiovascular: Reports chest pain (Right-sided), Denies syncope and Denies rapid heart rate Respiratory Respiratory: Reports pain on inspiration Gastrointestinal Gastrointestinal: Denies abdominal pain, Denies nausea and Denies vomiting Genitourinary Genitourinary: Denies dysuria Genitourinary: Denies dysuria Musculoskeletal Musculoskeletal: Denies arthralgias and Denies myalgias Integumentary/Breasts Comments: Skin tears to both arms Neurologic Neurologic: Denies behavioral changes, Denies vertigo, Denies syncope, Denies frequent falls and Denies headache(s) Comments: Lightheaded Psychiatric Psychiatric: Denies behavioral changes Endocrine Endocrine: Denies fatigue Hematologic/Lymphatic On Anticoagulants: Yes Allergic/Immunologic Allergic/Immunologic: Denies urticaria Patient History Medical History Acute CVA (cerebrovascular accident) Atrial fibrillation Bladder outlet obstruction BPH (benign prostatic hyperplasia) Essential hypertension Family history of CVA Family history of dementia Left anterior fascicular block snf current use of anticoagulant Mixed hyperlipidemia RBBB Surgical History (Updated 07/25/20 @ 14:15 by Alejandro Garcia MD) History of appendectomy History of tonsillectomy S/P cardiac pacemaker procedure (~12/2018) Family History Father CVA (cerebral vascular accident) Mother Dementia Social History household members: spouse Smoking Status: Former smoker alcohol intake: current Smoking Status: Former smoker alcohol intake frequency: 3 or more drinks per day Substance Use Type: does not use Exam Initial Vital Signs Initial Vital Signs: Vital Signs Temperature 98.6 F 10/09/20 08:00 Pulse Rate 57 L 10/09/20 08:00 Respiratory Rate 18 10/09/20 08:00 Blood Pressure 124/60 10/09/20 08:00 Pulse Oximetry 97 10/09/20 08:00 Const General: cooperative, healthy appearing, comfortable and well developed Limitations: mental status not altered HENMT Head: normal to inspection and normocephalic Ears: hearing grossly normal bilaterally Chest Chest: tenderness (Right anterior chest wall) Resp Effort & Inspection: normal respiratory effort Auscultation: clear to auscultation bilaterally Cardio Rate: regular rate Rhythm: regular rhythm GI Inspection: non-distended Palpation: soft Back/Spine/Pelvis Back: No CVA tenderness Skin Other: Patient with 2 skin wounds on the posterior aspect of his right arm 1 proximal to the elbow and 1 distal. Has 1 skin tear on his left arm proximal to the elbow. Neuro General: patient alert, patient awake and patient oriented x3 Cognition: normal cognition Speech: speech normal Gait: normal gait Extrem General: normal to inspection and capillary refill normal Psych Appearance: grossly normal and well kempt Scores GCS [place] coma scale eye opening: Spontaneous Kahlil coma scale verbal response: Orientated Kahlil coma scale motor response: Obey commands Kahlil coma scale total score: 15 Nexus Score for C-Spine Focal Neurologic deficit present: No Midline spinal tenderness present: No Altered level of conciousness present: No Intoxication present: No Distracting Injury Present: No Nexus Criteria for C-spine: 0 Course Orders Ordered: ED Orders 10/09/20 08:01 XR ribs RT min 3V w CXR1V Stat 10/09/20 09:02 RT Consult Eval and Treat Now Vital Signs Vital signs: Vital Signs - 8 hr 10/09/20 08:00 Temperature 98.6 F Pulse Rate 57 L Respiratory Rate 18 Blood Pressure 124/60 Pulse Oximetry 97 Medical Decision Making Imaging Data Rib x-ray: Radiologist's Impression: [address] [id number] ReportSigned Patient: Maverick Quigley FMR#: [id number]: 5Acct:[id number]/Sex: 84 / MDate of Service: 10/09/20Loc: EDAccession Number: [id number] Procedure: XR ribs RT min 3V w CXR1V Ordering Provider: Austin Camacho D.O. PROCEDURE: XR RIBS RT MIN 3V W CXR 1V INDICATIONS: Right-sided chest pain after fall yesterday TECHNIQUE: 2 views of the right ribs were acquired, along with a single view chest. COMPARISON: None. FINDINGS: Surgical changes and devices: Left-sided implanted scholastic aptitude test grader. Bones and chest wall: No fractures or dislocations. No suspicious bony lesions. Overlying soft tissues appear unremarkable. There is a right lateral 7th rib fracture, acute, mildly displaced. Lungs and pleura: No pleural effusions or pneumothorax. Lungs appear clear. Mediastinum: Mediastinal contours appear normal. Heart size is normal. IMPRESSION: Right acute 7th rib fracture, mildly displaced, without pneumothorax. Dictated by: Pratik Cole M.D. on 10/09/2020 at 8:40 Approved by: Pratik Cole M.D. on 10/09/2020 at 8:42 MDM Narrative Medical decision making narrative: Patient is not in any respiratory distress. He does have tenderness to palpation on his right anterior chest wall and a chest x-ray which shows an acute 7th rib fracture that corresponds with the location of his discomfort. He is not in any respiratory distress. His lungs are clear. Chest x-ray shows no signs of pneumothorax. The skin tears on his arms unfortunately cannot be repaired here in the ER. We did discuss care these at home and keeping them covered. We discussed the importance of taking deep breaths and coughing to avoid pneumonia. He was given return precautions with regard to this. Respiratory therapy came and discussed incentive spirometry with him. He states that his pain is relatively controlled with just sitting in bed it is just when he moves in certain directions and takes a deep breath and coughs when he has discomfort. I feel given his age that we should avoid opioid pain medication for the concern of falling. We discussed use of Tylenol and ibuprofen. We also discussed that despite these medications when he does cough for take a deep breath he will probably have discomfort on the right side of his chest. He expressed understanding of this. Will discharge home continue the rest of his medications. He expressed understanding and agreement this plan. Discharge Plan Departure Patient Disposition: Home Clinical Impression: Skin tear, Fall Fracture of rib Qualifiers: Encounter type: initial encounter Rib fracture type: single rib Fracture type: closed Laterality: right Qualified Code(s): S22.31XA - Fracture of one rib, right side, initial encounter for closed fracture Instructions: DI for Rib Fracture, How to Prevent Falls Activity Restrictions/Additional Instructions: Use the incentive spirometer like you were instructed by respiratory therapy. It is important that you occasionally cough and take big deep breaths to avoid developing pneumonia. If you develops shortness of breath or fevers or worsening discomfort please return to the emergency department. The skin tears on your arms will heal on their own. Just keep them covered with bandages. You can shower like normal. Continue all of your medications as directed. Contact your primary provider for follow-up. Prescriptions: No Action atorvastatin [Lipitor] 80 MG tablet 80 mg PO HS Qty: 0 RF: 0 tamsulosin [Flomax] 0.4 MG capsule,extended release 24hr 0.4 mg PO QDAY Qty: 0 RF: 0 metoprolol succinate 25 mg tablet extended release 24 hr 12.5 mg PO DAILY Qty: 45 RF: 2 Xarelto 20 mg tablet 20 mg PO DAILY RF: 0 lisinopril 10 mg Tablet 10 mg PO DAILY RF: 0 finasteride 5 mg Tablet 5 mg PO DAILY RF: 0 Referrals: Alejandro Garcia MD [Primary Care Provider] -
--- NOTE | 2020-10-09 08:27 | PC.NURSE ---
pt has a wound on each arm above the elbow. pt states he might have been dizzy but doesn't remember.
[2020-10-09 09:46] VITALS: BP 102/58; PULSE 59; RESP 16; O2SAT 96
== END 2020-10-09 09:35 | disposition home or self-care (01) ==
PROVIDERS: Emergency Provider Emergency Medicine; PCP Internal Medicine
DX: S22.31XA Fracture of one rib, right side, initial encounter for closed fracture (principal); S41.112A Laceration without foreign body of left upper arm, initial encounter; S41.111A Laceration without foreign body of right upper arm, initial encounter; W18.2XXA Fall in (into) shower or empty bathtub, initial encounter
CPT/HCPCS: 71101; 99281; 99283

== ENCOUNTER → 2020-12-19 07:04 | Outpatient (CLI) | payer MEDICARE, SELFPAY ==
[2018-07-31 12:47] VITALS: BMI 25.3
[2020-12-19 08:46] LABS: Add Manual Diff / Slide Review NO; Basophils Absolute Auto 100 /uL (0-100); Basophils Percent Auto 0.9 % (0-2); Eosinophils Absolute Auto 100 /uL (0-450); Eosinophils Percent Auto 0.7 % (2-4); Hemoglobin 13.8 g/dL (13.5-17.5); Lymphocytes Absolute Auto 4300 /uL (1100-4500); Lymphocytes Percent Auto 53.4 % (25-40); Mean Corpuscular HGB Conc 33.7 % (30-36); Mean Corpuscular Hemoglobin 33.6 PG (26-34); Mean Corpuscular Volume 99.7 fL (80-100); Monocytes Absolute Auto 400 /uL (0-900); Neutrophils Absolute Auto 3200 /uL (1500-7000); Platelet Count 161 X10^3/uL (150-400); Red Blood Cell Count 4.12 X10^6/uL (4.5-5.9); Red Cell Distribution Width 14.8 % (11.6-14.8); White Blood Cell Count 8.1 X10^3/uL (4.5-11.0)
[2020-12-19 09:19] LABS: Alanine Aminotransferase 20 IU/L (<50); Albumin 3.4 g/dL (3.5-5.0); Albumin Globulin Ratio 1.4 (1.0-2.8); Alkaline Phosphatase 87 U/L (38-126); Aspartate Aminotransferase 29 IU/L (17-59); BUN Creatinine Ratio 20.5 (6-22); Bilirubin Total 1.9 mg/dL (0.2-1.3); Blood Urea Nitrogen 15 mg/dL (9-20); Calcium 9.3 mg/dL (8.4-10.2); Carbon Dioxide 32 mmol/L (22-32); Chloride 106 mmol/L (98-107); Cholesterol 126 mg/dL (140-199); Estimated Glomerular Filt Rate > 60.0 mL/min (>60); Globulin 2.5 g/dL (1.7-4.1); Glucose 90 mg/dL (80-110); HDL Cholesterol 51 mg/dL (40-60); HEMOLYSIS < 15 (0-50); LDL Cholesterol Calculated 61 mg/dL (<100); Potassium 3.7 mmol/L (3.4-5.1); Sodium 141 mmol/L (137-145); Total Protein 5.9 g/dL (6.3-8.2); Triglycerides 69 mg/dL (35-150)
== END ==
PROVIDERS: PCP Internal Medicine; Referring Provider Internal Medicine; Visit Provider Internal Medicine
DX: E78.2 Mixed hyperlipidemia (principal); I10 Essential (primary) hypertension; N32.0 Bladder-neck obstruction; Z79.01 Long term (current) use of anticoagulants
CPT/HCPCS: 36415; 80053; 80061; 85025

== ENCOUNTER → 2020-12-24 07:46 | Outpatient (CLI) | payer MEDICARE, SELFPAY ==
[2018-07-31 12:47] VITALS: BMI 25.3
[2020-12-24 10:25] LABS: Appearance Urine UA CLEAR; Bilirubin Urine UA NEGATIVE (NEGATIVE); Color Urine UA YELLOW; Glucose Urine UA NEGATIVE (Negative); Ketones Urine UA NEGATIVE (NEGATIVE); Leukocyte Esterase Urine UA 1+ (NEGATIVE); Nitrite Urine UA NEGATIVE (Negative); Occult Blood Urine UA NEGATIVE (Negative); Protein Urine UA NEGATIVE (Negative); Specific Gravity Urine UA <=1.005 (1.000-1.035); Urobilinogen Urine UA 0.2 E.U./dL (0.2); pH Urine UA 6.5 (4.5-8.0)
[2020-12-24 10:50] LABS: Bacteria Urine Occasional (0-1); Culture Indicated Urine Specimen Cultured; RBC Urine 0-1/HPF (0-5/HPF); Squamous Epithelial Cell Urine 0-1 /HPF (0-5/HPF); WBC Urine 5-10/HPF (0-5/HPF)
== END ==
PROVIDERS: PCP Internal Medicine; Referring Provider Urology; Visit Provider Urology
DX: R33.9 Retention of urine, unspecified (principal)
CPT/HCPCS: 81001; 87077; 87086; 87186

== ENCOUNTER → 2021-08-13 08:41 | Outpatient (CLI) | payer MEDICARE, SELFPAY ==
[2018-07-31 12:47] VITALS: BMI 25.3
[2021-08-13 09:04] LABS: Hematocrit 39.8 % (41-53); Hemoglobin 13.6 g/dL (13.5-17.5); Mean Corpuscular HGB Conc 34.1 % (30-36); Mean Corpuscular Hemoglobin 33.5 PG (26-34); Mean Corpuscular Volume 98.3 fL (80-100); Platelet Count 180 X10^3/uL (150-400); Red Blood Cell Count 4.05 X10^6/uL (4.5-5.9)
[2021-08-13 09:21] LABS: BUN Creatinine Ratio 19.4 (6-22); Blood Urea Nitrogen 18 mg/dL (9-20); Calcium 9.3 mg/dL (8.4-10.2); Carbon Dioxide 33 mmol/L (22-32); Chloride 102 mmol/L (98-107); Estimated Glomerular Filt Rate > 60.0 mL/min (>60); Glucose 139 mg/dL (80-110); HEMOLYSIS 20 (0-50); Potassium 4.2 mmol/L (3.4-5.1); Sodium 138 mmol/L (137-145)
[2021-08-13 09:32] LABS: Alanine Aminotransferase 23 IU/L (<50); Albumin Globulin Ratio 1.5 (1.0-2.8); Alkaline Phosphatase 85 U/L (38-126); Aspartate Aminotransferase 32 IU/L (17-59); BUN Creatinine Ratio 19.1 (6-22); Bilirubin Total 1.9 mg/dL (0.2-1.3); Blood Urea Nitrogen 18 mg/dL (9-20); Calcium 9.1 mg/dL (8.4-10.2); Carbon Dioxide 31 mmol/L (22-32); Chloride 101 mmol/L (98-107); Cholesterol 129 mg/dL (140-199); Estimated Glomerular Filt Rate > 60.0 mL/min (>60); Globulin 2.6 g/dL (1.7-4.1); Glucose 137 mg/dL (80-110); HDL Cholesterol 50 mg/dL (40-60); HEMOLYSIS < 15 (0-50); LDL Cholesterol Calculated 63 mg/dL (<100); Potassium 4.1 mmol/L (3.4-5.1); Sodium 138 mmol/L (137-145); Total Protein 6.6 g/dL (6.3-8.2); Triglycerides 78 mg/dL (35-150)
[2021-08-13 09:51] LABS: Appearance Urine UA CLEAR; Bilirubin Urine UA NEGATIVE (NEGATIVE); Color Urine UA YELLOW; Glucose Urine UA NEGATIVE (Negative); Ketones Urine UA NEGATIVE (NEGATIVE); Leukocyte Esterase Urine UA TRACE (NEGATIVE); Nitrite Urine UA NEGATIVE (Negative); Occult Blood Urine UA 3+ (Negative); Protein Urine UA NEGATIVE (Negative); Urobilinogen Urine UA 0.2 E.U./dL (0.2); pH Urine UA 6.5 (4.5-8.0)
[2021-08-13 10:04] LABS: Bacteria Urine None Seen; Culture Indicated Urine Cult Not Indicated; RBC Urine 30-100/HPF (0-5/HPF); Squamous Epithelial Cell Urine 5-10 /HPF (0-5/HPF); WBC Urine None Seen (0-5/HPF)
== END ==
PROVIDERS: Urology; PCP Internal Medicine; Referring Provider Internal Medicine; Visit Provider Internal Medicine
DX: E78.2 Mixed hyperlipidemia (principal); I10 Essential (primary) hypertension; Z79.01 Long term (current) use of anticoagulants; R33.9 Retention of urine, unspecified
CPT/HCPCS: 36415; 80048; 80053; 80061; 81001; 85027

== ENCOUNTER → 2021-09-05 12:14 | Outpatient (CLI) | payer MEDICARE, SELFPAY ==
[2018-07-31 12:47] VITALS: BMI 25.3
--- NOTE | 2021-09-05 12:15 | DI.US.S_ITS ---
PROCEDURE: US RENAL COMPLETE INDICATIONS: NEUROGENIC BLADDER; POSSIBLE HYDRONEPHROSIS TECHNIQUE: Real-time scanning was performed of the kidneys and bladder, with image documentation. COMPARISON: [facility], US, US RENAL COMPLETE, 11/24/2019, 13:35. [facility], CT, CT ABDOMEN PELVIS WO CON, 05/23/2020, 12:17. FINDINGS: Kidneys: Right kidney measures 9.9 cm long; left kidney measures 10 cm long. Right renal cortical thickness is 1.8 cm; left renal cortical thickness is 1.6 cm. Renal cortical echotexture is normal. No hydronephrosis or nephrolithiasis. No suspicious solid mass lesions. Bladder: Pre-void bladder volume is 986 mL. Post-void residual is unable to be assessed as the patient was unable to void L. On pre-void images, neither ureteral jets are noted with color Doppler interrogation. (Of note, ureteral jets may not be detectable in up to 25% of cases due to insufficient differences in specific gravity between ureteral and bladder urine). Bladder wall trabeculations. Enlargement of the prostate, measuring up to 6.3 cm, which protrudes into the inferior urinary bladder. Miscellaneous: No free pelvic fluid. IMPRESSION: 1. Normal appearance of the kidneys and no hydronephrosis is seen bilaterally. 2. Distended urinary bladder with bladder wall trabeculations suggesting chronic partial bladder outlet obstruction. Dictated by: Matthew ANGEL Interpreted: Mauro Frances MD on 09/05/2021 at 13:37 Transcribed by: THEA on 09/05/2021 at 13:39 Approved by: Mauro Frances M.D. on 09/05/2021 at 16:30
== END ==
PROVIDERS: PCP Internal Medicine; Referring Provider Urology; Visit Provider Urology
DX: R33.9 Retention of urine, unspecified (principal); N32.89 Other specified disorders of bladder
CPT/HCPCS: 76770

== ENCOUNTER → 2021-10-06 10:59 | Outpatient (CLI) | payer MEDICARE, SELFPAY ==
[2018-07-31 12:47] VITALS: BMI 25.3
[2021-10-06 12:50] LABS: Add Manual Diff / Slide Review NO; Basophils Absolute Auto 100 /uL (0-100); Basophils Percent Auto 0.8 % (0-2); Eosinophils Absolute Auto 0 /uL (0-450); Eosinophils Percent Auto 0.4 % (2-4); Hematocrit 38.9 % (41-53); Lymphocytes Absolute Auto 4000 /uL (1100-4500); Lymphocytes Percent Auto 38.5 % (25-40); Mean Corpuscular HGB Conc 33.5 % (30-36); Mean Corpuscular Hemoglobin 32.8 PG (26-34); Mean Corpuscular Volume 97.8 fL (80-100); Monocytes Absolute Auto 600 /uL (0-900); Monocytes Percent Auto 5.4 % (3-14); Neutrophils Absolute Auto 5700 /uL (1500-7000); Neutrophils Percent Auto 54.9 % (50-75); Platelet Count 178 X10^3/uL (150-400); Red Blood Cell Count 3.98 X10^6/uL (4.5-5.9); Red Cell Distribution Width 14.1 % (11.6-14.8); White Blood Cell Count 10.4 X10^3/uL (4.5-11.0)
[2021-10-06 14:02] LABS: Alanine Aminotransferase 22 IU/L (<50); Albumin 3.8 g/dL (3.5-5.0); Albumin Globulin Ratio 1.7 (1.0-2.8); Alkaline Phosphatase 92 U/L (38-126); Aspartate Aminotransferase 29 IU/L (17-59); BUN Creatinine Ratio 24.4 (6-22); Blood Urea Nitrogen 22 mg/dL (9-20); Calcium 9.1 mg/dL (8.4-10.2); Carbon Dioxide 32 mmol/L (22-32); Chloride 103 mmol/L (98-107); Cholesterol 132 mg/dL (140-199); Estimated Glomerular Filt Rate > 60 mL/min (>60); Globulin 2.3 g/dL (1.7-4.1); Glucose 84 mg/dL (80-110); HDL Cholesterol 51 mg/dL (40-60); HEMOLYSIS < 15 (0-50); LDL Cholesterol Calculated 67 mg/dL (<100); Potassium 4.4 mmol/L (3.4-5.1); Sodium 139 mmol/L (137-145); Total Protein 6.1 g/dL (6.3-8.2); Triglycerides 70 mg/dL (35-150)
== END ==
PROVIDERS: PCP Internal Medicine; Referring Provider Internal Medicine; Visit Provider Internal Medicine
DX: E78.2 Mixed hyperlipidemia (principal); I10 Essential (primary) hypertension; N40.1 Benign prostatic hyperplasia with lower urinary tract symptoms; R33.8 Other retention of urine; Z79.01 Long term (current) use of anticoagulants
CPT/HCPCS: 36415; 80053; 80061; 85025

== ENCOUNTER → 2021-11-13 08:04 | Outpatient (CLI) | payer MEDICARE, SELFPAY ==
[2018-07-31 12:47] VITALS: BMI 25.3
[2021-11-13 09:18] LABS: BUN Creatinine Ratio 22.6 (6-22); Blood Urea Nitrogen 21 mg/dL (9-20); Calcium 8.7 mg/dL (8.4-10.2); Carbon Dioxide 30 mmol/L (22-32); Chloride 103 mmol/L (98-107); Estimated Glomerular Filt Rate > 60 mL/min (>60); Glucose 110 mg/dL (80-110); HEMOLYSIS < 15 (0-50); Sodium 138 mmol/L (137-145)
== END ==
PROVIDERS: Urology; PCP Internal Medicine; Referring Provider Urology; Visit Provider Urology
DX: R33.9 Retention of urine, unspecified (principal); N31.2 Flaccid neuropathic bladder, not elsewhere classified
CPT/HCPCS: 36415; 80048

== ENCOUNTER → 2022-03-02 11:45 | Outpatient (CLI) | payer MEDICARE, SELFPAY ==
[2018-07-31 12:47] VITALS: BMI 25.3
[2022-03-02 13:45] LABS: BUN Creatinine Ratio 30.5 (6-22); Blood Urea Nitrogen 25 mg/dL (9-20); Calcium 8.7 mg/dL (8.4-10.2); Carbon Dioxide 30 mmol/L (22-32); Chloride 103 mmol/L (98-107); Estimated Glomerular Filt Rate > 60 mL/min (>60); Glucose 143 mg/dL (80-110); HEMOLYSIS 19 (0-50); Sodium 138 mmol/L (137-145)
== END ==
PROVIDERS: PCP Internal Medicine; Referring Provider Urology; Visit Provider Urology
DX: N31.2 Flaccid neuropathic bladder, not elsewhere classified (principal); N32.0 Bladder-neck obstruction; N40.1 Benign prostatic hyperplasia with lower urinary tract symptoms; R33.8 Other retention of urine; R33.9 Retention of urine, unspecified
CPT/HCPCS: 36415; 80048

== ENCOUNTER → 2022-03-12 11:51 | Outpatient (CLI) | payer MEDICARE, SELFPAY ==
[2018-07-31 12:47] VITALS: BMI 25.3
== END ==
PROVIDERS: PCP Internal Medicine; Visit Provider Urology
DX: N31.2 Flaccid neuropathic bladder, not elsewhere classified (principal); N32.0 Bladder-neck obstruction; R33.9 Retention of urine, unspecified; R82.81 Pyuria; Z79.01 Long term (current) use of anticoagulants
CPT/HCPCS: 51798; 81002; 87077; 87086; 87186; 99213

== ENCOUNTER → 2022-07-23 09:38 | Outpatient (CLI) | payer MEDICARE, SELFPAY ==
[2018-07-31 12:47] VITALS: BMI 25.3
[2022-07-23 10:30] LABS: Add Manual Diff / Slide Review NO; Basophils Absolute Auto 100 /uL (0-100); Basophils Percent Auto 0.8 % (0-2); Eosinophils Absolute Auto 100 /uL (0-450); Eosinophils Percent Auto 1.1 % (2-4); Hematocrit 39.8 % (41-53); Hemoglobin 13.2 g/dL (13.5-17.5); Lymphocytes Absolute Auto 3100 /uL (1100-4500); Lymphocytes Percent Auto 38.8 % (25-40); Mean Corpuscular HGB Conc 33.2 % (30-36); Mean Corpuscular Hemoglobin 32.6 PG (26-34); Mean Corpuscular Volume 98.1 fL (80-100); Monocytes Absolute Auto 500 /uL (0-900); Monocytes Percent Auto 5.8 % (3-14); Neutrophils Absolute Auto 4300 /uL (1500-7000); Neutrophils Percent Auto 53.5 % (50-75); Platelet Count 172 X10^3/uL (150-400); Red Blood Cell Count 4.05 X10^6/uL (4.5-5.9); White Blood Cell Count 8.1 X10^3/uL (4.5-11.0)
[2022-07-23 10:43] LABS: Alanine Aminotransferase 20 IU/L (<50); Albumin 3.9 g/dL (3.5-5.0); Albumin Globulin Ratio 1.4 (1.0-2.8); Alkaline Phosphatase 65 U/L (38-126); Aspartate Aminotransferase 31 IU/L (17-59); BUN Creatinine Ratio 24.2 (6-22); Bilirubin Total 2.4 mg/dL (0.2-1.3); Blood Urea Nitrogen 22 mg/dL (9-20); Calcium 9.1 mg/dL (8.4-10.2); Carbon Dioxide 30 mmol/L (22-32); Chloride 98 mmol/L (98-107); Estimated Glomerular Filt Rate > 60 mL/min (>60); Globulin 2.7 g/dL (1.7-4.1); Glucose 101 mg/dL (80-110); HEMOLYSIS 15 (0-50); Potassium 4.5 mmol/L (3.4-5.1); Sodium 138 mmol/L (137-145); Total Protein 6.6 g/dL (6.3-8.2)
[2022-07-23 11:02] LABS: Free T4, Direct Thyroxine 1.09 ng/dL (0.78-2.19)
[2022-07-23 11:16] LABS: Thyroid Stimulating Hormone 1.37 uIU/mL (0.47-4.68)
== END ==
PROVIDERS: PCP Internal Medicine; Referring Provider Internal Medicine; Visit Provider Internal Medicine
DX: E78.2 Mixed hyperlipidemia (principal); I10 Essential (primary) hypertension; I45.10 Unspecified right bundle-branch block; I48.91 Unspecified atrial fibrillation
CPT/HCPCS: 36415; 80053; 84439; 84443; 85025

== ENCOUNTER 2022-08-30 07:54 | Emergency (ER) | payer MEDICARE, SELFPAY ==
[2018-07-31 12:47] VITALS: BMI 25.3
[2022-08-30 08:05] VITALS: BP 136/60; PULSE 77; RESP 16; TEMP 36.8; O2SAT 95; BMI 24.3
--- NOTE | 2022-08-30 08:08 | ED_ITS ---
HPI - Fall General Stated Complaint: L hand swelling after fall, 1 week Time Seen by Provider: 08/30/22 08:00 History of Present Illness HPI Narrative: This elderly gentleman comes to the ER because of a fall he had a number of days ago. Can not recall precisely how long ago the fall was. He says it was about a week ago. He had a significant wound on the dorsal left forearm after the fall and his dressed it with a tight Coban dressing. That dressing is remained in place for the last number of days since the fall. This morning he woke up in his hand was quite swollen and he was concerned about this. The dressing was quite tight however. Denies any other symptoms of illness or injury. He says he thinks he fell down because he turned around too quickly and lost his bearings. Says he did not faint or have any chest symptoms at the time. Can not recall whether or not he hit his head. Has not had any vomiting. His says his behavior and activity otherwise is completely at baseline. Related Data Home Medications Medication Instructions Recorded Confirmed Prevagen 1 tab PO DAILY 04/14/21 05/11/22 Previous Rx's Medication Instructions Recorded atorvastatin 80 mg tablet (Lipitor) 80 mg PO HS #90 tabs 07/23/22 finasteride 5 mg tablet 5 mg PO DAILY #90 tabs 08/17/22 lisinopril 10 mg tablet 10 mg PO DAILY #90 tabs 08/17/22 metoprolol succinate 25 mg 25 mg PO DAILY #90 tabs 08/17/22 tablet,extended release 24 hr rivaroxaban 20 mg tablet 20 mg PO DAILY #90 tabs 08/17/22 tamsulosin 0.4 mg capsule 0.4 mg PO DAILY #90 caps 08/17/22 Allergies Allergy/AdvReac Type Severity Reaction Status Date / Time No Known Drug Allergies Allergy Verified 05/11/22 09:52 Review of Systems Review of Systems Narrative: Negative other than as noted above Patient History Medical History (Updated 08/30/22 @ 08:14 by Jose Merchant MD) Acute CVA (cerebrovascular accident) Atrial fibrillation Bladder outlet obstruction BPH (benign prostatic hyperplasia) Essential hypertension Family history of CVA Family history of dementia Hypotonic bladder Left anterior fascicular block skilled nursing current use of anticoagulant Memory loss Mixed hyperlipidemia RBBB Urinary retention Surgical History (Updated 08/04/22 @ 15:37 by Alejandro Garcia MD) History of appendectomy History of tonsillectomy S/P cardiac pacemaker procedure (~12/2018) Family History Father CVA (cerebral vascular accident) Mother Dementia Social History household members: spouse Smoking Status: Former smoker alcohol intake: current Smoking Status: Former smoker alcohol intake frequency: 3 or more drinks per day Substance Use Type: does not use Exam Narrative Exam Narrative: GENERAL: Alert, cooperative and in no distress. No axillary adenopathy. HEAD: Atraumatic. Normocephalic. EYES: Sclera are clear without icterus. Extraocular movements are full. ENT: No rhinorrhea. Oropharynx is moist. Mouth exam is benign. NECK: Supple. Full range of motion. CARDIOVASCULAR: Normal rate and rhythm without murmur gallop or rub. RESPIRATORY: Clear to auscultation. Breath sounds equal bilaterally. No wheezes, rales, or rhonchi. GASTROINTESTINAL: Abdomen soft, non-tender, nondistended. EXTREMITIES: No edema, full range of motion. No obvious trauma. Normal range of motion of the wrist hand elbow and shoulder on the left no bony tenderness. BACK: Normal inspection, no CVA tenderness. NEURO: Nonfocal examination, normal speech, normal gait. SKIN: Skin tear on the dorsal left forearm about 3 x 5 cm. No evidence of infection. Lots of proud flesh. One dried flake of skin on the edge of it. PSYCH: Normally oriented. Normal range of affect. Appropriate behavior Course Course Course Narrative: I think it is pretty clear that the tight dressing is the culprit here. I do not suspect a deep venous thrombosis in the upper extremity. He has no evidence of infection. The edema in the hand and precisely where the bandage ended and the rest of the forearm is not edematous at all. The hand has full range of motion without redness erythema warmth or tenderness. I think this is edema caused by the restrictive dressing. I do not suspect restriction of arterial flow or ischemia in the hand. The wound is cleansed and antibiotic ointment is applied and a sterile dressing bandage is applied. Discharge Plan Departure Patient Disposition: Home Clinical Impression: Fall, ISTAP type 1 skin tear of forearm Activity Restrictions/Additional Instructions: Daily, remove the bandage and cleanse gently with soap and water. Rinse with clean water. Pat dry with clean cloth. Apply a thin layer of antibiotic ointment and a sterile adhesive bandage. Follow-up right away for signs or symptoms of infection. I think the swelling in your hand is simply from the bandage being a little bit too tight. Do not put a circumferential bandage on this wound anymore. Elevate the hand and arm as much as you reasonably can over the next couple of days. If the swelling does not resolve by Wednesday or Wednesday, follow-up at the clinic. Follow-up also right away for signs of infection such as increasing redness pain swelling tenderness or fever. Prescriptions: No Action finasteride 5 mg tablet 5 mg PO DAILY Qty: 90 3RF lisinopril 10 mg tablet 10 mg PO DAILY Qty: 90 3RF metoprolol succinate 25 mg tablet extended release 24 hr 25 mg PO DAILY Qty: 90 3RF rivaroxaban 20 mg tablet 20 mg PO DAILY Qty: 90 3RF tamsulosin 0.4 mg capsule 0.4 mg PO DAILY Qty: 90 3RF atorvastatin [Lipitor] 80 mg tablet 80 mg PO HS Qty: 90 3RF Prevagen 1 tab PO DAILY Referrals: Alejandro Garcia MD [Primary Care Provider] - Stand Alone Forms: Patient Portal/API
[2022-08-30] MEDS: BACITRACIN OINT 0.9 GM PCKT 1 APPLIC TOP (08:11)
--- NOTE | 2022-08-30 08:27 | PC.NURSE ---
patient was given a non adherent dressing with gauze and tape over the top of it. He was instructed not to wrap the arm in a circumferential manner with anything else.
[2022-08-30 08:30] VITALS: BP 135/80; PULSE 65; O2SAT 98
== END 2022-08-30 08:32 | disposition home or self-care (01) ==
PROVIDERS: Emergency Provider Family Medicine Addiction Medicine; PCP Internal Medicine
DX: R22.32 Localized swelling, mass and lump, left upper limb (principal); S61.412A Laceration without foreign body of left hand, initial encounter; W19.XXXA Unspecified fall, initial encounter
CPT/HCPCS: 99282; 99283

== ENCOUNTER 2022-09-28 08:16 | Emergency (ER) | payer MEDICARE, SELFPAY ==
[2018-07-31 12:47] VITALS: BMI 25.3
[2022-09-28] VITALS (18 sets, daily range): BP systolic 91–122; BP diastolic 49–59; PULSE 54–75; RESP 13–25; TEMP 36.6; O2SAT 94–99; BMI 24.3
--- NOTE | 2022-09-28 08:30 | DI.CT.S_ITS ---
PROCEDURE: CT CHEST ABD PEL W CON INDICATIONS: Fall in shower with left lower ribs/left flank contusion and TECHNIQUE: After the administration of intravenous contrast, 5 mm thick sections acquired from the lung apices to the symphysis. 2.5 mm thick coronal and sagittal reformats were acquired. Additional 7 mm thick coronal maximum intensity projection (MIP) reformats acquired through the lungs. Optional 10-minute delayed imaging may be performed from the kidneys to the bladder. For radiation dose reduction, the following was used: automated exposure control, adjustment of mA and/or kV according to patient size. COMPARISON: [facility], CT, CT CHEST ABDOMEN PELVIS WITHOUT CONTRAST, 12/12/2018, 15:08. [facility], CR, XR CHEST 2 VIEWS, 12/13/2018, 7:12. FINDINGS: Image quality: Excellent. CHEST: Lungs: No pulmonary contusions or lacerations. 3 mm left upper lobe pulmonary nodule, image 49/5. This is stable. Posterior left apical lipoma. 2 mm right middle lobe pulmonary nodule, image 185/5. This is stable. 2 mm possible endobronchial nodule, anterior segment right middle lobe bronchus. This was not present on the previous study. Reference images 182 in 183 of series 5. No acute airspace opacities. No pneumothorax or hemothorax. Central and peripheral airways appear patent and normal in caliber. Mediastinum: No mediastinal hematomas. Heart size is normal. Right ventricular device, presumed pacemaker. No pericardial effusion. Thoracic aorta and pulmonary arteries demonstrate normal size and enhancement. No mediastinal or hilar adenopathy. Esophagus is normal in caliber. No hiatal hernia. Chest wall: No rib fractures. No subcutaneous emphysema. No axillary or supraclavicular adenopathy. Thyroid gland contains a sub cm right lobe nodule. ABDOMEN: Solid organs: Liver is normal in size and enhancement, without lacerations. Benign calcification, liver near the dome, possibly representing a a calcified granuloma. Gallbladder is surgically absent.. Biliary system is mildly prominent post cholecystectomy, within normal limits Pancreas enhances normally, without transection. Spleen is normal in size and enhancement, without lacerations. No adrenal hematomas. Both kidneys enhance normally, without hydronephrosis or lacerations. Peritoneum and bowel: No free fluid or air. Unenhanced bowel loops demonstrate normal wall thickness and caliber. Large rectal fecal load. Nodes and vessels: No retroperitoneal or mesenteric adenopathy. Aorta and inferior vena cava are normal in size and enhancement. Miscellaneous: No ventral hernias. PELVIS: Genitourinary: Moderate to large prostate enlargement, with indentation on the base of the bladder by prostate. Mild diffuse bladder wall thickening consistent with bladder outlet obstruction. Miscellaneous: Small fat containing right inguinal hernia. Bones: Pelvic ring and hip joints appear intact. No vertebral compression fractures. Old right rib fractures. IMPRESSION: 1. Large rectal fecal load. 2. Moderate to large prostatomegaly, with indentation on the base of the bladder. Associated bladder wall thickening consistent with a degree of bladder outlet obstruction. 3. No evidence of significant sequelae of acute trauma in the chest, abdomen and pelvis. 4. There is a possible 2 mm endobronchial nodule in the medial segment right middle lobe pulmonary bronchus. Other pulmonary nodules are stable. Comment: Recommend repeat chest CT in 3 months to identify whether there is continued presence of a nodule in the subsegmental right middle lobe bronchus. Dictated by: Elio Ghotra M.D. on 09/28/2022 at 9:21 Approved by: Elio Ghotra M.D. on 09/28/2022 at 9:46
--- NOTE | 2022-09-28 08:30 | ED.GENADULT ---
HPI - General Adult General Chief complaint: Fall Stated complaint: Fall Time Seen by Provider: 09/28/22 08:20 Source: patient and EMS Mode of arrival: EMS Limitations: no limitations History of Present Illness HPI narrative: Patient is an 86-year-old male. Does have a pacemaker in place. He is on anticoagulation. Was brought in by EMS for evaluation of injuries that he sustained when he fell in the shower this morning. Patient states he was at his normal state of health. Was taking a shower. He states he normally takes a step back and then steps out of the shower and when he did so this morning he lost his balance and fell forward. Did not think that he hit his head. There was no loss of consciousness. Initially reported that there was no injuries. His is the 1 who contacted EMS. He was found to be somewhat hypotensive by EMS. He arrived not on a backboard not in a cervical collar. Upon my examination patient states he is getting some stiffness in his neck otherwise no other injuries. No headache. No chest pain. No palpitations. No abdominal pain. No extremity injuries. No pelvic pain. He states he did not think that he slipped and fell he is unsure exactly what had happened. Related Data Home Medications Medication Instructions Recorded Confirmed Prevagen 1 tab PO DAILY 04/14/21 09/09/22 Previous Rx's Medication Instructions Recorded atorvastatin 80 mg tablet (Lipitor) 80 mg PO HS #90 tabs 07/23/22 finasteride 5 mg tablet 5 mg PO DAILY #90 tabs 08/17/22 lisinopril 10 mg tablet 10 mg PO DAILY #90 tabs 08/17/22 metoprolol succinate 25 mg 25 mg PO DAILY #90 tabs 08/17/22 tablet,extended release 24 hr rivaroxaban 20 mg tablet 20 mg PO DAILY #90 tabs 08/17/22 tamsulosin 0.4 mg capsule 0.4 mg PO DAILY #90 caps 08/17/22 Allergies Allergy/AdvReac Type Severity Reaction Status Date / Time No Known Drug Allergies Allergy Verified 09/28/22 08:39 Review of Systems Review of Systems ROS Unobtainable: All systems reviewed & are unremarkable except as noted in HPI and below Patient History Medical History Acute CVA (cerebrovascular accident) Atrial fibrillation Bladder outlet obstruction BPH (benign prostatic hyperplasia) Essential hypertension Family history of CVA Family history of dementia 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 Memory loss Mixed hyperlipidemia RBBB Urinary retention Surgical History (Updated 08/04/22 @ 15:37 by Alejandro Garcia MD) History of appendectomy History of tonsillectomy S/P cardiac pacemaker procedure (~12/2018) Family History Father CVA (cerebral vascular accident) Mother Dementia Social History household members: spouse Smoking Status: Former smoker alcohol intake: current Smoking Status: Former smoker alcohol intake frequency: 3 or more drinks per day Substance Use Type: does not use Exam Initial Vital Signs Initial Vital Signs: Vital Signs Temperature 97.9 F 09/28/22 08:20 Pulse Rate 56 L 09/28/22 08:20 Respiratory Rate 18 09/28/22 08:20 Blood Pressure 109/58 L 09/28/22 08:20 Pulse Oximetry 98 09/28/22 08:20 Oxygen Delivery Method Room Air 09/28/22 08:20 Const General: cooperative, comfortable and No ill appearing HENGA Head: normal to inspection and normocephalic Face and sinus: normal facial exam Mouth: oral mucosae normal Chest Chest: No crepitus and No tenderness Resp Effort & Inspection: normal respiratory effort Auscultation: clear to auscultation bilaterally Cardio Rate: regular rate Rhythm: regular rhythm GI Inspection: normal to inspection Palpation: soft, No firm, No guarding and No tender Back/Spine/Pelvis Cervical Spine: No collar present, No cervical muscular tenderness and cervical spinal tenderness Thoracic/Lumbar Spine: No thoracic spinal tenderness and No lumbar spinal tenderness Skin Other: Patient with a large contusion located on his left flank that does not include the lower portion of his left ribs extending around to his abdomen. No specific tenderness to palpation over this area Neuro General: patient alert, patient awake, patient oriented x3 and moves all extremities Extrem Other: No gross extremity deformities. Pelvis is stable. Is able to move upper and lower extremities without pain. Psych Appearance: grossly normal and well kempt Scores [place] CT Head Rule Age <16 years old: No Patient on blood thinners: Yes Seizure after injury: No Exclusion: Patient meets exclusion criteria GCS Kahlil coma scale eye opening: Spontaneous Kahlil coma scale verbal response: Orientated [place] coma scale motor response: Obey commands [place] coma scale total score: 15 Nexus Score for C-Spine Focal Neurologic deficit present: No Midline spinal tenderness present: Yes Altered level of conciousness present: No Intoxication present: No Distracting Injury Present: No Nexus Criteria for C-spine: 1 Course Orders Ordered: ED Orders 09/28/22 08:30 CT chest abd pel w con Stat 09/28/22 08:31 CT cervical spine wo con Stat CT head/brain wo con Stat 09/28/22 08:32 EKG-12 Lead Stat 09/28/22 09:55 Complete Blood Count AUTO DIFF Stat Comprehensive Metabolic Panel Stat Lipase Stat PTT Partial Thromboplastin Michael Stat Prothrombin Time INR Stat Troponin & CK Cardiac Panel Stat Vital Signs Vital signs: Vital Signs - 8 hr 09/28/22 08:20 09/28/22 08:23 09/28/22 08:23 Temperature 97.9 F Pulse Rate 56 L 56 L Respiratory Rate 18 15 Blood Pressure 109/58 L 109/58 L Pulse Oximetry 98 99 Oxygen Delivery Method Room Air Room Air 09/28/22 08:29 09/28/22 08:31 09/28/22 08:40 Temperature Pulse Rate 56 L 54 L Respiratory Rate 15 Blood Pressure 101/49 L Pulse Oximetry 98 Oxygen Delivery Method 09/28/22 08:40 09/28/22 08:59 09/28/22 08:59 Temperature Pulse Rate 54 L Respiratory Rate 14 Blood Pressure 109/52 L 107/53 L Pulse Oximetry 98 Oxygen Delivery Method Room Air 09/28/22 09:00 09/28/22 09:00 09/28/22 09:30 Temperature Pulse Rate 54 L 54 L Respiratory Rate 13 Blood Pressure 105/52 L Pulse Oximetry 98 Oxygen Delivery Method Room Air 09/28/22 09:34 09/28/22 09:34 09/28/22 09:40 Temperature Pulse Rate 54 L 56 L Respiratory Rate Blood Pressure 95/49 L Pulse Oximetry 95 94 Oxygen Delivery Method 09/28/22 09:40 09/28/22 09:50 09/28/22 09:50 Temperature Pulse Rate 55 L Respiratory Rate Blood Pressure 99/50 L 91/53 L Pulse Oximetry 96 Oxygen Delivery Method Room Air Medical Decision Making Lab Data 09/28/22 09:55 09/28/22 09:55 Labs: Lab Results 09/28/22 09/28/22 09/28/22 Range/Units 09:55 09:55 09:55 WBC 10.7 (4.5-11.0) X10^3/uL RBC 3.58 L (4.5-5.9) X10^6/uL Hgb 12.2 L (13.5-17.5) g/dL Hct 35.0 L (41-53) % MCV 97.7 (80-100) fL MCH 34.0 (26-34) PG MCHC 34.8 (30-36) % RDW 13.5 (11.6-14.8) % Plt Count 150 (150-400) X10^3/uL Neut % (Auto) 82.6 H (50-75) % Lymph % (Auto) 12.7 L (25-40) % [place] % (Auto) 4.3 (3-14) % Eos % (Auto) 0.1 L (2-4) % Baso % (Auto) 0.3 (0-2) % Neut # (Auto) 8800 H (1252-8584) /uL Lymph # (Auto) 1400 (4471-4492) /uL [place] # (Auto) 500 (0-900) /uL Eos # (Auto) 0 (0-450) /uL Baso # (Auto) 0 (0-100) /uL PT 20.8 H (10.1-12.7) SECONDS INR 1.8 H (0.9-1.3) APTT 32 (26-36) SECONDS Sodium 136 L (137-145) mmol/L Potassium 4.4 (3.4-5.1) mmol/L Chloride 106 (98-107) mmol/L Carbon Dioxide 28 (22-32) mmol/L BUN 21 H (9-20) mg/dL Creatinine 0.91 (0.66-1.25) mg/dL Estimated GFR > 60 (>60) mL/min BUN/Creatinine Ratio 23.1 H (6-22) Glucose 98 (80-110) mg/dL Calcium 8.5 (8.4-10.2) mg/dL Total Bilirubin 2.4 H (0.2-1.3) mg/dL AST 31 (17-59) IU/L ALT 21 (<50) IU/L Alkaline Phosphatase 75 (38-126) U/L Total Creatine Kinase (55-170) U/L CK-MB (CK-2) (<2.37) ng/mL CK-MB (CK-2) Rel Index (1.5-5.0) % Troponin I (0.01-0.034) ng/mL Total Protein 5.6 L (6.3-8.2) g/dL Albumin 3.0 L (3.5-5.0) g/dL Globulin 2.6 (1.7-4.1) g/dL Albumin/Globulin Ratio 1.2 (1.0-2.8) Lipase 594 H (23-300) U/L 09/28/22 Range/Units 09:55 WBC (4.5-11.0) X10^3/uL RBC (4.5-5.9) X10^6/uL Hgb (13.5-17.5) g/dL Hct (41-53) % MCV (80-100) fL MCH (26-34) PG MCHC (30-36) % RDW (11.6-14.8) % Plt Count (150-400) X10^3/uL Neut % (Auto) (50-75) % Lymph % (Auto) (25-40) % [place] % (Auto) (3-14) % Eos % (Auto) (2-4) % Baso % (Auto) (0-2) % Neut # (Auto) (9399-8733) /uL Lymph # (Auto) (0224-4589) /uL [place] # (Auto) (0-900) /uL Eos # (Auto) (0-450) /uL Baso # (Auto) (0-100) /uL PT (10.1-12.7) SECONDS INR (0.9-1.3) APTT (26-36) SECONDS Sodium (137-145) mmol/L Potassium (3.4-5.1) mmol/L Chloride (98-107) mmol/L Carbon Dioxide (22-32) mmol/L BUN (9-20) mg/dL Creatinine (0.66-1.25) mg/dL Estimated GFR (>60) mL/min BUN/Creatinine Ratio (6-22) Glucose (80-110) mg/dL Calcium (8.4-10.2) mg/dL Total Bilirubin (0.2-1.3) mg/dL AST (17-59) IU/L ALT (<50) IU/L Alkaline Phosphatase (38-126) U/L Total Creatine Kinase 202 H (55-170) U/L CK-MB (CK-2) 1.68 (<2.37) ng/mL CK-MB (CK-2) Rel Index 0.8 L (1.5-5.0) % Troponin I < 0.012 (0.01-0.034) ng/mL Total Protein (6.3-8.2) g/dL Albumin (3.5-5.0) g/dL Globulin (1.7-4.1) g/dL Albumin/Globulin Ratio (1.0-2.8) Lipase (23-300) U/L Imaging Data CT scan - head: Radiologist's Impression: PROCEDURE:? CT HEAD/BRAIN WO CON ? INDICATIONS:? Fall on anticoagulation ? TECHNIQUE:? Noncontrast 4.5 mm thick angled axial sections acquired from the foramen magnum to the vertex, with coronal and sagittal reformats.? For radiation dose reduction, the following was used:? automated exposure control, adjustment of mA and/or kV according to patient size.? ? COMPARISON:? [facility], CT, CT HEAD/BRAIN WO CON, 07/31/2018, 10:20. ? FINDINGS:? Image quality:? Excellent.? ? CSF spaces:? Basal cisterns are patent.? No extra-axial fluid collections.? The ventricles are symmetric in size and shape.? ? Brain:? No intracranial bleeds or masses.? There is cerebral volume loss for age, with resultant ventricular and sulcal prominence.? There are periventricular and deep white matter chronic small vessel ischemic changes.? There is intracranial internal carotid artery atherosclerosis.? ? Skull and face:? Calvarium and visualized facial bones appear intact, without suspicious lesions.? ? Sinuses:? Visualized sinuses and mastoids are clear.? ? IMPRESSION:? No evidence acute intracranial abnormalit CT - cervical spine: Radiologist's Impression: PROCEDURE:? CT CERVICAL SPINE WO CON ? INDICATIONS:? Fall with neck pain ? TECHNIQUE:? Noncontrast 3 mm thick sections acquired from the skull base to the T4 level.? Sagittal and coronal reformats were then constructed.? For radiation dose reduction, the following was used:? automated exposure control, adjustment of mA and/or kV according to patient size.? ? COMPARISON:? None. ? FINDINGS:? Image quality:? Excellent.? ? Bones:? No fractures or dislocations.? Visualized superior ribs are intact.? Mild cervical spondylosis.? ? Soft tissues:? Prevertebral soft tissues are normal in thickness.? No paravertebral hematomas.? No apical pneumothoraces.? Incidental note is made of the presence of a left apical lipoma.? This indents on the pulmonary parenchyma and extends through the chest wall to the posterior tissues immediately superficial to the chest wall. ? ? IMPRESSION:? ? 1. No evidence acute cervical fracture or dislocation. ? 2. 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 ? 3. Mild cervical spondylitic change. CT chest/abd pelvis: Radiologist's Impression: PROCEDURE:? CT CHEST ABD PEL W CON ? INDICATIONS:? Fall in shower with left lower ribs/left flank contusion and ? TECHNIQUE:? After the administration of intravenous contrast, 5 mm thick sections acquired from the lung apices to the symphysis.? 2.5 mm thick coronal and sagittal reformats were acquired. ?Additional 7 mm thick coronal maximum intensity projection (MIP) reformats acquired through the lungs.? Optional 10-minute delayed imaging may be performed from the kidneys to the bladder.? For radiation dose reduction, the following was used:? automated exposure control, adjustment of mA and/or kV according to patient size.? ? COMPARISON:? [facility], CT, CT CHEST ABDOMEN PELVIS WITHOUT CONTRAST, 12/12/2018, 15:08.? [facility], CR, XR CHEST 2 VIEWS, 12/13/2018, 7:12. ? FINDINGS:? Image quality:? Excellent.? ? CHEST:? Lungs:? No pulmonary contusions or lacerations.? 3 mm left upper lobe pulmonary nodule, image 49/5.? This is stable.? Posterior left apical lipoma.? 2 mm right middle lobe pulmonary nodule, image 185/5.? This is stable.? 2 mm possible endobronchial nodule, anterior segment right middle lobe bronchus.? This was not present on the previous study. ?Reference images 182 in 183 of series 5.? No acute airspace opacities.? No pneumothorax or hemothorax.? Central and peripheral airways appear patent and normal in caliber.? ? Mediastinum:? No mediastinal hematomas.? Heart size is normal.? Right ventricular device, presumed pacemaker.? No pericardial effusion.? Thoracic aorta and pulmonary arteries demonstrate normal size and enhancement.? No mediastinal or hilar adenopathy.? Esophagus is normal in caliber.? No hiatal hernia.? ? Chest wall:? No rib fractures.? No subcutaneous emphysema.? No axillary or supraclavicular adenopathy.? Thyroid gland contains a sub cm right lobe nodule. ? ? ABDOMEN:? Solid organs:? Liver is normal in size and enhancement, without lacerations.? Benign calcification, liver near the dome, possibly representing a a calcified granuloma.? Gallbladder is surgically absent..? Biliary system is mildly prominent post cholecystectomy, within normal limits Pancreas enhances normally, without transection.? Spleen is normal in size and enhancement, without lacerations.? No adrenal hematomas.? Both kidneys enhance normally, without hydronephrosis or lacerations.? ? Peritoneum and bowel:? No free fluid or air.? Unenhanced bowel loops demonstrate normal wall thickness and caliber.? Large rectal fecal load.? ? Nodes and vessels:? No retroperitoneal or mesenteric adenopathy.? Aorta and inferior vena cava are normal in size and enhancement.? ? Miscellaneous:? No ventral hernias.? ? ? PELVIS:? Genitourinary:? Moderate to large prostate enlargement, with indentation on the base of the bladder by prostate.? Mild diffuse bladder wall thickening consistent with bladder outlet obstruction. ? Miscellaneous:? Small fat containing right inguinal hernia. ? Bones:? Pelvic ring and hip joints appear intact.? No vertebral compression fractures.? Old right rib fractures.? ? ? IMPRESSION:? ? 1. Large rectal fecal load. ? 2. Moderate to large prostatomegaly, with indentation on the base of the bladder.? Associated bladder wall thickening consistent with a degree of bladder outlet obstruction.? ? 3. No evidence of significant sequelae of acute trauma in the chest, abdomen and pelvis. ? 4. There is a possible 2 mm endobronchial nodule in the medial segment right middle lobe pulmonary bronchus.? Other pulmonary nodules are stable. ? Comment:? Recommend repeat chest CT in 3 months to identify whether there is continued presence of a nodule in the subsegmental right middle lobe bronchus. ECG Data Attestation: I personally reviewed and interpreted this ECG as follows: Interpretation: Ventricularly paced Rate of 64 MDM Narrative Medical decision making narrative: Patient does have a contusion on his left flank and left abdomen however his CT scans here in the emergency department are unremarkable. Patient was able to stand at bedside but did need to use a walker. He has a walker at home that he can use as needed. He reports no further extremity complaints. Will discharge patient home with his . We did discuss that he should use his walker as needed. We discussed the importance of avoiding falling. We discussed the potential course with the contusion on his left flank and specific return precautions. Both he and his expressed understanding and agreement with plan. Discharge Plan Departure Patient Disposition: Home Clinical Impression: Contusion of flank Instructions: DI for Contusion, How to Prevent Falls Activity Restrictions/Additional Instructions: Would not be surprised if you need to use your walker for the next couple days. It is important that you avoid falling. If you develop any new symptoms over the next couple days please return to the emergency department. Continue to take all of your medications as directed. Prescriptions: No Action finasteride 5 mg tablet 5 mg PO DAILY Qty: 90 3RF lisinopril 10 mg tablet 10 mg PO DAILY Qty: 90 3RF metoprolol succinate 25 mg tablet extended release 24 hr 25 mg PO DAILY Qty: 90 3RF rivaroxaban 20 mg tablet 20 mg PO DAILY Qty: 90 3RF tamsulosin 0.4 mg capsule 0.4 mg PO DAILY Qty: 90 3RF atorvastatin [Lipitor] 80 mg tablet 80 mg PO HS Qty: 90 3RF Prevagen 1 tab PO DAILY Referrals: Alejandro Garcia MD [Primary Care Provider] - Stand Alone Forms: Patient Portal/API
--- NOTE | 2022-09-28 08:31 | DI.CT.S_ITS ---
PROCEDURE: CT HEAD/BRAIN WO CON INDICATIONS: Fall on anticoagulation TECHNIQUE: Noncontrast 4.5 mm thick angled axial sections acquired from the foramen magnum to the vertex, with coronal and sagittal reformats. For radiation dose reduction, the following was used: automated exposure control, adjustment of mA and/or kV according to patient size. COMPARISON: [facility], CT, CT HEAD/BRAIN WO CON, 07/31/2018, 10:20. FINDINGS: Image quality: Excellent. CSF spaces: Basal cisterns are patent. No extra-axial fluid collections. The ventricles are symmetric in size and shape. Brain: No intracranial bleeds or masses. There is cerebral volume loss for age, with resultant ventricular and sulcal prominence. There are periventricular and deep white matter chronic small vessel ischemic changes. There is intracranial internal carotid artery atherosclerosis. Skull and face: Calvarium and visualized facial bones appear intact, without suspicious lesions. Sinuses: Visualized sinuses and mastoids are clear. IMPRESSION: No evidence acute intracranial abnormality. Dictated by: Elio Ghotra M.D. on 09/28/2022 at 9:16 Approved by: Elio Ghotra M.D. on 09/28/2022 at 9:17
--- NOTE | 2022-09-28 08:31 | DI.CT.S_ITS ---
PROCEDURE: CT CERVICAL SPINE WO CON INDICATIONS: Fall with neck pain TECHNIQUE: Noncontrast 3 mm thick sections acquired from the skull base to the T4 level. Sagittal and coronal reformats were then constructed. For radiation dose reduction, the following was used: automated exposure control, adjustment of mA and/or kV according to patient size. COMPARISON: None. FINDINGS: Image quality: Excellent. Bones: No fractures or dislocations. Visualized superior ribs are intact. Mild cervical spondylosis. Soft tissues: Prevertebral soft tissues are normal in thickness. No paravertebral hematomas. No apical pneumothoraces. Incidental note is made of the presence of a left apical lipoma. This indents on the pulmonary parenchyma and extends through the chest wall to the posterior tissues immediately superficial to the chest wall. IMPRESSION: 1. No evidence acute cervical fracture or dislocation. 2. 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 3. Mild cervical spondylitic change. Dictated by: Elio Ghotra M.D. on 09/28/2022 at 9:18 Approved by: Elio Ghotra M.D. on 09/28/2022 at 9:21
[2022-09-28 10:09] LABS: Add Manual Diff / Slide Review NO; Basophils Absolute Auto 0 /uL (0-100); Basophils Percent Auto 0.3 % (0-2); Eosinophils Absolute Auto 0 /uL (0-450); Eosinophils Percent Auto 0.1 % (2-4); Hemoglobin 12.2 g/dL (13.5-17.5); Lymphocytes Absolute Auto 1400 /uL (1100-4500); Lymphocytes Percent Auto 12.7 % (25-40); Mean Corpuscular HGB Conc 34.8 % (30-36); Mean Corpuscular Volume 97.7 fL (80-100); Monocytes Absolute Auto 500 /uL (0-900); Monocytes Percent Auto 4.3 % (3-14); Neutrophils Absolute Auto 8800 /uL (1500-7000); Neutrophils Percent Auto 82.6 % (50-75); Platelet Count 150 X10^3/uL (150-400); Red Blood Cell Count 3.58 X10^6/uL (4.5-5.9); Red Cell Distribution Width 13.5 % (11.6-14.8); White Blood Cell Count 10.7 X10^3/uL (4.5-11.0)
[2022-09-28 10:15] LABS: INR 1.8 (0.9-1.3); Prothrombin Time 20.8 SECONDS (10.1-12.7)
[2022-09-28 10:18] LABS: PTT Partial Thromboplastin Tim 32 SECONDS (26-36)
[2022-09-28 10:20] LABS: Alanine Aminotransferase 21 IU/L (<50); Albumin Globulin Ratio 1.2 (1.0-2.8); Alkaline Phosphatase 75 U/L (38-126); Aspartate Aminotransferase 31 IU/L (17-59); BUN Creatinine Ratio 23.1 (6-22); Bilirubin Total 2.4 mg/dL (0.2-1.3); Blood Urea Nitrogen 21 mg/dL (9-20); Calcium 8.5 mg/dL (8.4-10.2); Carbon Dioxide 28 mmol/L (22-32); Chloride 106 mmol/L (98-107); Creatine Kinase 202 U/L (55-170); Estimated Glomerular Filt Rate > 60 mL/min (>60); Globulin 2.6 g/dL (1.7-4.1); Glucose 98 mg/dL (80-110); HEMOLYSIS < 15 (0-50); Lipase 594 U/L (23-300); Potassium 4.4 mmol/L (3.4-5.1); Sodium 136 mmol/L (137-145); Total Protein 5.6 g/dL (6.3-8.2)
--- NOTE | 2022-09-28 10:24 | PC.NURSE ---
Ambulated pt with walker, pt initially reported feeling unsteady on feet, improved after remaining standing. Pt with slow, steady gait with walker. reports he typically walks independently but does have a walker at home.
[2022-09-28 10:31] LABS: Troponin I < 0.012 ng/mL (0.01-0.034)
[2022-09-28 10:35] LABS: CKMB % Relative Index 0.8 % (1.5-5.0); Creatine Kinase MB 1.68 ng/mL (<2.37)
== END 2022-09-28 11:08 | disposition home or self-care (01) ==
PROVIDERS: Emergency Provider Emergency Medicine; PCP Internal Medicine
DX: S30.1XXA Contusion of abdominal wall, initial encounter (principal); S09.90XA Unspecified injury of head, initial encounter; R07.81 Pleurodynia; M54.2 Cervicalgia; R07.9 Chest pain, unspecified; W18.2XXA Fall in (into) shower or empty bathtub, initial encounter; Z79.899 Other long term (current) drug therapy; Z79.01 Long term (current) use of anticoagulants
CPT/HCPCS: 36415; 70450; 71260; 72125; 74177; 80053; 82550; 82553; 83690; 84484; 85025; 85610; 85730; 93005; 93010; 99284; Q9967

== ENCOUNTER 2023-01-01 14:17 | Observation (INO) | payer MEDICARE, SELFPAY ==
[2018-07-31 12:47] VITALS: BMI 25.3
[2023-01-01] VITALS (10 sets, daily range): BP systolic 103–130; BP diastolic 51–64; PULSE 54–66; RESP 13–24; TEMP 36.8–37.3; O2SAT 94–100; BMI 23.8
--- NOTE | 2023-01-01 14:23 | DI.CT.S_ITS ---
PROCEDURE: CT ANGIO HEAD AND NECK INDICATIONS: found down on xeralto balance problem TECHNIQUE: Noncontrast images were performed earlier in the day and not repeated. After the administration of intravenous contrast, 1 mm thick sections acquired from the aortic arch through the [place] of [place]. Post-contrast 4.5 mm thick sections then re-acquired from the foramen magnum to the vertex. 3-dimensional [id number]-fuaaztsfto (MIP) and/or volume rendering reformats were acquired of the central intracranial vasculature and neck separately. For radiation dose reduction, the following was used: automated exposure control, adjustment of mA and/or kV according to patient size. COMPARISON: [facility], MR, MR STROKE, 08/01/2018, 11:07. [facility], CT, CT HEAD/BRAIN WO CON, 09/28/2022, 8:40. [facility], CT, CT STROKE, 01/01/2023, 14:24. FINDINGS: Image quality: Excellent. BRAIN: CSF spaces: Ventricles are normal in size and shape. Basal cisterns are patent. No extra-axial fluid collections. Brain: No midline shift. No intracranial bleeds or masses. Schmitt-white matter interface appears intact. Skull and face: Calvarium and facial bones appear intact, without suspicious lesions. Orbits appear normal. Sinuses: Sinuses and mastoids are clear. HEAD CT ANGIOGRAPHY: Anterior circulation: Intracranial internal carotid arteries are normal in size and flow. The flow within the paired anterior cerebral arteries is normal and symmetric. The flow within the middle cerebral arteries is normal and symmetric. The anterior communicating artery is seen. No aneurysms are seen. Posterior circulation: The right V4 segment is within normal limits. The left V4 segment demonstrates focal atherosclerotic calcification, with subtotal narrowing, as on series 8, image 136. There is a normal appearing basilar artery. There is a type origin of the right posterior cerebral artery, with a corresponding diminutive right P1 segment. Flow within the posterior cerebral arteries is normal and symmetric. No aneurysms are seen. NECK CT ANGIOGRAPHY: Carotid system: The great vessels demonstrate a conventional anatomy as they arise from the aortic arch. The origins of the common carotid arteries appear patent. The common carotid arteries demonstrate normal caliber and courses. The bifurcation regions are both widely patent. The internal carotid arteries demonstrate normal calibers and courses. Posterior circulation: The origins of the vertebral arteries both appear widely patent. 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 The more superior extracranial portions of both vertebral arteries also demonstrate normal courses and calibers. The right vertebral artery is dominant to the left. Soft tissues: Visualized neck soft tissues demonstrate no suspicious abnormalities. Bones: No suspicious bony lesions. Visualized cervical spine appears normally aligned. IMPRESSION: No acute intracranial process is seen. Focal calcification can be seen involving the left V4 segment, with subtotal narrowing. This is unchanged compared to 2019 and is not considered to be acute abnormality. This may be congenital, with the majority of the flow of the left V4 segment going into the left posterior inferior cerebral artery. Within the arteries of the neck, no hemodynamically significant stenosis can be seen. 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 Any quantitative measurements of stenosis were performed using NASCET criteria. Dictated by: Marcus Hays M.D. on 01/01/2023 at 14:12 Approved by: Marcus Hays M.D. on 01/01/2023 at 14:18
--- NOTE | 2023-01-01 14:23 | DI.CT.S_ITS ---
PROCEDURE: CT STROKE INDICATIONS: found down on xeralto balance problem TECHNIQUE: Noncontrast 4.5 mm thick angled axial sections acquired from the foramen magnum to the vertex, with coronal reformats. For radiation dose reduction, the following was used: automated exposure control, adjustment of mA and/or kV according to patient size. COMPARISON: None. FINDINGS: Image quality: Excellent. CSF spaces: Basal cisterns are patent. No extra-axial fluid collections. The ventricles are symmetric in size and shape. Brain: No intracranial bleeds or masses. There is cerebral volume loss for age, with resultant ventricular and sulcal prominence. There are periventricular and deep white matter chronic small vessel ischemic changes. There is intracranial internal carotid artery atherosclerosis. Skull and face: Calvarium and visualized facial bones appear intact, without suspicious lesions. Sinuses: Visualized sinuses and mastoids are clear. IMPRESSION: 1. No acute intracranial hemorrhage, large territorial infarct or mass effect. 2. Age-related volume loss and chronic small vessel ischemic change. This study fulfills neurological imaging criteria for inclusion or exclusion of acute stroke therapies based on available published neurological guidelines. Dictated by: Inder Ross M.D. on 01/01/2023 at 14:33 Approved by: Inder Ross M.D. on 01/01/2023 at 14:36
[2023-01-01 14:32] LABS: Add Manual Diff / Slide Review NO; Basophils Absolute Auto 100 /uL (0-100); Basophils Percent Auto 0.7 % (0-2); Eosinophils Absolute Auto 0 /uL (0-450); Eosinophils Percent Auto 0.2 % (2-4); Hematocrit 37.9 % (41-53); Hemoglobin 12.8 g/dL (13.5-17.5); Lymphocytes Absolute Auto 2000 /uL (1100-4500); Lymphocytes Percent Auto 24.7 % (25-40); Mean Corpuscular HGB Conc 33.9 % (30-36); Mean Corpuscular Hemoglobin 32.8 PG (26-34); Mean Corpuscular Volume 96.8 fL (80-100); Monocytes Absolute Auto 500 /uL (0-900); Monocytes Percent Auto 5.9 % (3-14); Neutrophils Absolute Auto 5600 /uL (1500-7000); Neutrophils Percent Auto 68.5 % (50-75); Platelet Count 202 X10^3/uL (150-400); Red Blood Cell Count 3.91 X10^6/uL (4.5-5.9); Red Cell Distribution Width 13.9 % (11.6-14.8); White Blood Cell Count 8.2 X10^3/uL (4.5-11.0)
[2023-01-01 14:39] LABS: INR 1.3 (0.9-1.3); Prothrombin Time 15.3 SECONDS (10.1-12.7)
[2023-01-01 14:42] LABS: PTT Partial Thromboplastin Tim 31 SECONDS (26-36)
[2023-01-01 14:45] LABS: Alanine Aminotransferase 20 IU/L (<50); Albumin 3.9 g/dL (3.5-5.0); Albumin Globulin Ratio 1.4 (1.0-2.8); Alkaline Phosphatase 86 U/L (38-126); Aspartate Aminotransferase 40 IU/L (17-59); BUN Creatinine Ratio 25.7 (6-22); Bilirubin Total 1.6 mg/dL (0.2-1.3); Blood Urea Nitrogen 27 mg/dL (9-20); Calcium 9.3 mg/dL (8.4-10.2); Carbon Dioxide 25 mmol/L (22-32); Chloride 103 mmol/L (98-107); Creatine Kinase 1103 U/L (55-170); Estimated Glomerular Filt Rate > 60 mL/min (>60); Ethanol (ETOH) < 10 mg/dL; Globulin 2.7 g/dL (1.7-4.1); Glucose 105 mg/dL (80-110); HEMOLYSIS < 15 (0-50); Potassium 4.4 mmol/L (3.4-5.1); Sodium 136 mmol/L (137-145); Total Protein 6.6 g/dL (6.3-8.2)
[2023-01-01 14:56] LABS: Troponin I 0.015 ng/mL (0.01-0.034)
[2023-01-01 16:11] LABS: Appearance Urine UA SL CLOUDY; Bilirubin Urine UA NEGATIVE (NEGATIVE); Color Urine UA YELLOW; Glucose Urine UA NEGATIVE (Negative); Ketones Urine UA TRACE (NEGATIVE); Leukocyte Esterase Urine UA 1+ (NEGATIVE); Nitrite Urine UA NEGATIVE (Negative); Occult Blood Urine UA NEGATIVE (Negative); Protein Urine UA NEGATIVE (Negative)
--- NOTE | 2023-01-01 16:14 | ED.FALL ---
HPI - Fall General Chief Complaint: Fall Stated Complaint: Fall,face down,cant walk,on xarelto Time Seen by Provider: 01/01/23 14:23 Source: EMS Mode of arrival: EMS History of Present Illness HPI Narrative: Patient 87-year-old male history of hypertension atrial fibrillation on Xarelto presenting today as a code stroke. Last known well was yesterday. noted that yesterday he started leaning towards left when he was walking. He was outside today when he fell down in the back yd. No loss consciousness. His found him after he would laid there for about 40 minutes EMS noted that he had some left leg weakness and leaned to the left as well. No nausea or vomiting. No upper extremity weakness. No facial droop no visual deficits. Patient reports that he feels fine. Related Data Home Medications Medication Instructions Recorded Confirmed Prevagen 1 tab PO DAILY 04/14/21 11/10/22 Previous Rx's Medication Instructions Recorded atorvastatin 80 mg tablet (Lipitor) 80 mg PO HS #90 tabs 07/23/22 finasteride 5 mg tablet 5 mg PO DAILY #90 tabs 08/17/22 lisinopril 10 mg tablet 10 mg PO DAILY #90 tabs 08/17/22 metoprolol succinate 25 mg 25 mg PO DAILY #90 tabs 08/17/22 tablet,extended release 24 hr rivaroxaban 20 mg tablet 20 mg PO DAILY #90 tabs 08/17/22 tamsulosin 0.4 mg capsule 0.4 mg PO DAILY #90 caps 08/17/22 Allergies Allergy/AdvReac Type Severity Reaction Status Date / Time No Known Drug Allergies Allergy Verified 11/10/22 10:06 Review of Systems Review of Systems ROS Unobtainable: All systems reviewed & are unremarkable except as noted in HPI and below Patient History Medical History Acute CVA (cerebrovascular accident) Atrial fibrillation Bladder outlet obstruction BPH (benign prostatic hyperplasia) Essential hypertension Family history of CVA Family history of dementia Hypotonic bladder 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 Memory loss Mixed hyperlipidemia RBBB Urinary retention Surgical History History of appendectomy History of tonsillectomy S/P cardiac pacemaker procedure (~12/2018) Family History Father CVA (cerebral vascular accident) Mother Dementia Social History household members: spouse Smoking Status: Former smoker alcohol intake: current Smoking Status: Former smoker alcohol intake frequency: 3 or more drinks per day Substance Use Type: does not use Exam Initial Vital Signs Initial Vital Signs: Vital Signs Pulse Rate 66 01/01/23 14:31 Respiratory Rate 14 01/01/23 14:31 Pulse Oximetry 94 01/01/23 14:31 GENERAL: Alert pleasant 79-year-old male HEENT: Head atraumatic,EOMI, pupils reactive, face symmetric, moist mucous membranes CARDIOVASCULAR: Regular rate and rhythm without murmurs, rubs or gallops. RESPIRATORY: Breath sounds equal bilaterally, no wheezes rales or rhonchi. ABDOMEN: Soft, nontender. Normoactive bowel sounds all 4 quadrants. No guarding or rebound. EXTREMITIES: Normal range of motion, no clubbing or edema. Neurovascularly intact NEUROLOGICAL: Alert and oriented x4.Normal gait and speech. Cranial nerves II through XII grossly intact. Good [id number], good [id number], strength equal bilaterally, no dysarthria or aphasia, sensation in tact to soft touch bilaterally, no visual changes, no facial droop SKIN: Warm, dry, no laceration, no petechiae, no rashes or lesions. Scores NIH Stroke Scale Level of Conciousness: Alert, keenly responsive Ask month/age: Answers both questions correctly. Open/close eyes, close hand: Performs both tasks correctly Best gaze horizontal: Normal Visual landon: No visual loss Facial palsy: Normal symetrical movement Left arm drift: No drift for full 10 sec Right arm drift: No drift for full 10 sec Left leg drift: No drift for full 5 sec Right leg drift: No drift for full 5 sec Limb ataxia: Absent Sensory on face/arms/legs: Normal, no sensory loss Best language: No aphasia, normal Dysarthria: Normal Extinction or inattention: No abnormality Total NIH Stroke scale score: 0 Course Orders Ordered: ED Orders 01/01/23 14:05 Complete Blood Count AUTO DIFF Stat Comprehensive Metabolic Panel Stat Ethanol (ETOH) Stat PTT Partial Thromboplastin Michael Stat Prothrombin Time INR Stat Troponin & CK Cardiac Panel Stat 01/01/23 14:[address] angio head and neck Stat 01/01/23 14:24 EKG-12 Lead Stat 01/01/23 15:44 COVID19 -Nasal RAPID Stat Urinalysis and Microscopic Stat Urine Culture Stat Urine Drug Screen, Rapid Stat 01/01/23 16:24 Chest [XR chest 1V] Stat 01/01/23 17:42 Consult to Physical Therapy Evaluate & Treat Education, smoking cessation ONGOING 01/02/23 05:00 Basic Metabolic Panel Routine CPK [Creatine Kinase] Routine Complete Blood Count AUTO DIFF Routine Acetaminophen (Acetaminophen 325 Mg Tablet) 650 mg PO Q6H PRN PRN Reason: Fever/Mild Pain (1-3) Atorvastatin Calcium (Atorvastatin 20 Mg Tablet) 80 mg PO BEDTIME [facility] Finasteride (Finasteride 5 Mg Tablet) 5 mg PO DAILY [facility] Sodium Chloride (Normal Saline 0.45%) 1,000 mls @ 100 mls/hr IV CONT RYAN Last Admin: 01/01/23 18:18 Dose: 100 mls/hr Documented By: JOSE Metoprolol Succinate (Metoprolol Er 25 Mg Tablet) 25 mg PO DAILY [facility] Naloxone HCl (Naloxone 0.4 Mg/Ml Vial) 0.2 mg IV Q2MIN PRN PRN Reason: Opiate Reversal Oxycodone HCl (Oxycodone Ir 5 Mg Tablet) 5 mg PO Q3H PRN PRN Reason: Pain, Moderate (4-6) Rivaroxaban (Rivaroxaban 10 Mg Tablet) 20 mg PO QPM [facility] Last Admin: 01/01/23 18:06 Dose: 20 mg Documented By: JOES Tamsulosin HCl (Tamsulosin 0.4 Mg Capsule) 0.4 mg PO DAILY [facility] Discontinued Medications Sodium Chloride (Normal Saline 0.9%) 1,000 mls @ 125 mls/hr IV CONT [facility] Ceftriaxone Sodium 2,000 mg/ (Sodium Chloride) 100 mls @ 200 mls/hr IV NOW ONE Stop: 01/01/23 18:29 Last Admin: 01/01/23 18:07 Dose: 200 mls/hr Documented By: JOSE Vital Signs Vital signs: Vital Signs - 8 hr 01/01/23 14:32 01/01/23 14:31 01/01/23 15:00 Temperature 98.3 F Pulse Rate 56 L 66 Respiratory Rate 14 14 Blood Pressure 103/55 L 110/55 L Pulse Oximetry 97 94 Oxygen Delivery Method Room Air 01/01/23 15:00 01/01/23 15:30 01/01/23 15:30 Temperature Pulse Rate 61 66 Respiratory Rate 22 23 Blood Pressure 109/55 L Pulse Oximetry 95 Oxygen Delivery Method 01/01/23 16:00 01/01/23 16:00 01/01/23 16:30 Temperature Pulse Rate 54 L 55 L Respiratory Rate 13 13 Blood Pressure 103/51 L Pulse Oximetry 96 100 Oxygen Delivery Method 01/01/23 16:32 01/01/23 16:32 01/01/23 17:00 Temperature Pulse Rate 58 L 55 L Respiratory Rate 15 24 Blood Pressure 105/57 L Pulse Oximetry 100 100 Oxygen Delivery Method 01/01/23 17:01 01/01/23 17:01 Temperature Pulse Rate 54 L Respiratory Rate 24 Blood Pressure 130/60 Pulse Oximetry 100 Oxygen Delivery Method MDM - Fall Lab Data 01/01/23 14:05 01/01/23 14:05 Labs: Lab Results 01/01/23 01/01/23 01/01/23 Range/Units 14:05 14:05 14:05 WBC 8.2 (4.5-11.0) X10^3/uL RBC 3.91 L (4.5-5.9) X10^6/uL Hgb 12.8 L (13.5-17.5) g/dL Hct 37.9 L (41-53) % MCV 96.8 (80-100) fL MCH 32.8 (26-34) PG MCHC 33.9 (30-36) % RDW 13.9 (11.6-14.8) % Plt Count 202 (150-400) X10^3/uL Neut % (Auto) 68.5 (50-75) % Lymph % (Auto) 24.7 L (25-40) % [place]aney % (Auto) 5.9 (3-14) % Eos % (Auto) 0.2 L (2-4) % Baso % (Auto) 0.7 (0-2) % Neut # (Auto) 5600 (5040-3143) /uL Lymph # (Auto) 2000 (6096-2238) /uL Taney # (Auto) 500 (0-900) /uL Eos # (Auto) 0 (0-450) /uL Baso # (Auto) 100 (0-100) /uL PT 15.3 H (10.1-12.7) SECONDS INR 1.3 (0.9-1.3) APTT 31 (26-36) SECONDS Sodium 136 L (137-145) mmol/L Potassium 4.4 (3.4-5.1) mmol/L Chloride 103 (98-107) mmol/L Carbon Dioxide 25 (22-32) mmol/L BUN 27 H (9-20) mg/dL Creatinine 1.05 (0.66-1.25) mg/dL Estimated GFR > 60 (>60) mL/min BUN/Creatinine Ratio 25.7 H (6-22) Glucose 105 (80-110) mg/dL Calcium 9.3 (8.4-10.2) mg/dL Total Bilirubin 1.6 H (0.2-1.3) mg/dL AST 40 (17-59) IU/L ALT 20 (<50) IU/L Alkaline Phosphatase 86 (38-126) U/L Total Creatine Kinase 1103 H (55-170) U/L Troponin I 0.015 (0.01-0.034) ng/mL Total Protein 6.6 (6.3-8.2) g/dL Albumin 3.9 (3.5-5.0) g/dL Globulin 2.7 (1.7-4.1) g/dL Albumin/Globulin Ratio 1.4 (1.0-2.8) Urine Color Urine Appearance Urine pH (4.5-8.0) Ur Specific [place] (1.000-1.035) Urine Protein (Negative) Urine Glucose (UA) (Negative) g/dL Urine Ketones (NEGATIVE) Urine Occult Blood (Negative) Urine Nitrate (Negative) Urine Bilirubin (NEGATIVE) Urine Urobilinogen (0.2) E.U./dL Ur Leukocyte Esterase (NEGATIVE) Urine RBC (0-5/HPF) Urine WBC (0-5/HPF) Ur Squamous Epith Cells (0-5/HPF) Urine Bacteria (None) Ur Culture Indicated? U Opiates 300ng/mL cut (Negative) Ur Oxycodone Screen (Negative) Urine Methadone Screen (Negative) Ur Barbiturates Screen (Negative) U Tricyclic Antidepress (Negative) Ur Phencyclidine Scrn (Negative) Ur Amphetamines Screen (Negative) U Methamphetamines Scrn (Negative) Ur MDMA Scrn (Ecstasy) (Negative) U Benzodiazepines Scrn (Negative) Urine Cocaine Screen (Negative) U Marijuana (THC) Screen (Negative) Ethyl Alcohol < 10 ( - 10) mg/dL SARS-CoV-2 (PCR) (Negative) 01/01/23 01/01/23 01/01/23 Range/Units 15:44 15:44 15:44 WBC (4.5-11.0) X10^3/uL RBC (4.5-5.9) X10^6/uL Hgb (13.5-17.5) g/dL Hct (41-53) % MCV (80-100) fL MCH (26-34) PG MCHC (30-36) % RDW (11.6-14.8) % Plt Count (150-400) X10^3/uL Neut % (Auto) (50-75) % Lymph % (Auto) (25-40) % Taney % (Auto) (3-14) % Eos % (Auto) (2-4) % Baso % (Auto) (0-2) % Neut # (Auto) (4401-6626) /uL Lymph # (Auto) (2185-1546) /uL Taney # (Auto) (0-900) /uL Eos # (Auto) (0-450) /uL Baso # (Auto) (0-100) /uL PT (10.1-12.7) SECONDS INR (0.9-1.3) APTT (26-36) SECONDS Sodium (137-145) mmol/L Potassium (3.4-5.1) mmol/L Chloride (98-107) mmol/L Carbon Dioxide (22-32) mmol/L BUN (9-20) mg/dL Creatinine (0.66-1.25) mg/dL Estimated GFR (>60) mL/min BUN/Creatinine Ratio (6-22) Glucose (80-110) mg/dL Calcium (8.4-10.2) mg/dL Total Bilirubin (0.2-1.3) mg/dL AST (17-59) IU/L ALT (<50) IU/L Alkaline Phosphatase (38-126) U/L Total Creatine Kinase (55-170) U/L Troponin I (0.01-0.034) ng/mL Total Protein (6.3-8.2) g/dL Albumin (3.5-5.0) g/dL Globulin (1.7-4.1) g/dL Albumin/Globulin Ratio (1.0-2.8) Urine Color Yellow Urine Appearance Sl cloudy Urine pH 6.0 (4.5-8.0) Ur Specific [place] 1.020 (1.000-1.035) Urine Protein Negative (Negative) Urine Glucose (UA) Negative (Negative) g/dL Urine Ketones Trace H (NEGATIVE) Urine Occult Blood Negative (Negative) Urine Nitrate Negative (Negative) Urine Bilirubin Negative (NEGATIVE) Urine Urobilinogen 1.0 (0.2) E.U./dL Ur Leukocyte Esterase 1+ H (NEGATIVE) Urine RBC 0-1/hpf D (0-5/HPF) Urine WBC 5-10/hpf H (0-5/HPF) Ur Squamous Epith Cells 0-1 /hpf (0-5/HPF) Urine Bacteria Many (>30) H (None) Ur Culture Indicated? Specimen cultured U Opiates 300ng/mL cut Negative (Negative) Ur Oxycodone Screen Negative (Negative) Urine Methadone Screen Negative (Negative) Ur Barbiturates Screen Negative (Negative) U Tricyclic Antidepress Negative (Negative) Ur Phencyclidine Scrn Negative (Negative) Ur Amphetamines Screen Negative (Negative) U Methamphetamines Scrn Negative (Negative) Ur MDMA Scrn (Ecstasy) Negative (Negative) U Benzodiazepines Scrn Negative (Negative) Urine Cocaine Screen Negative (Negative) U Marijuana (THC) Screen Negative (Negative) Ethyl Alcohol ( - 10) mg/dL SARS-CoV-2 (PCR) Negative (Negative) Imaging Data CT scan - head: Radiologist's Impression: PROCEDURE:? CT STROKE ? INDICATIONS:? found down on xeralto balance problem ? TECHNIQUE:? Noncontrast 4.5 mm thick angled axial sections acquired from the foramen magnum to the vertex, with coronal reformats.? For radiation dose reduction, the following was used:? automated exposure control, adjustment of mA and/or kV according to patient size.? ? COMPARISON:? None. ? FINDINGS:? Image quality:? Excellent.? ? CSF spaces:? Basal cisterns are patent.? No extra-axial fluid collections.? The ventricles are symmetric in size and shape.? ? Brain:? No intracranial bleeds or masses.? There is cerebral volume loss for age, with resultant ventricular and sulcal prominence.? There are periventricular and deep white matter chronic small vessel ischemic changes.? There is intracranial internal carotid artery atherosclerosis.? ? Skull and face:? Calvarium and visualized facial bones appear intact, without suspicious lesions.? ? Sinuses:? Visualized sinuses and mastoids are clear.? ? IMPRESSION:? 1. No acute intracranial hemorrhage, large territorial infarct or mass effect. 2. Age-related volume loss and chronic small vessel ischemic change. ? This study fulfills neurological imaging criteria for inclusion or exclusion of acute stroke therapies based on available published neurological guidelines.? ? ? Dictated by: Inder Ross M.D. on 01/01/2023 at 14:33 ? ? CTA - brain/neck: Radiologist's Impression: PROCEDURE:? CT ANGIO HEAD AND NECK ? INDICATIONS:? found down on xeralto balance problem ? TECHNIQUE:? Noncontrast images were performed earlier in the day and not repeated.? ? After the administration of intravenous contrast, 1 mm thick sections acquired from the aortic arch through the [place] of [place].? Post-contrast 4.5 mm thick sections then re-acquired from the foramen magnum to the vertex.? 3-dimensional prperzs-xyfutudhf-wteyjqzyco (MIP) and/or volume rendering reformats were acquired of the central intracranial vasculature and neck separately. For radiation dose reduction, the following was used:? automated exposure control, adjustment of mA and/or kV according to patient size.? ? COMPARISON:? [facility], MR, MR STROKE, 08/01/2018, 11:07.? [facility], CT, CT HEAD/BRAIN WO CON, 09/28/2022, 8:40.? [facility], CT, CT STROKE, 01/01/2023, 14:24. ? FINDINGS:? Image quality:? Excellent.? ? BRAIN:? CSF spaces:? Ventricles are normal in size and shape.? Basal cisterns are patent.? No extra-axial fluid collections.? ? Brain:? No midline shift.? No intracranial bleeds or masses.? Schmitt-white matter interface appears intact.? ? Skull and face:? Calvarium and facial bones appear intact, without suspicious lesions.? Orbits appear normal.? ? Sinuses:? Sinuses and mastoids are clear.? ? HEAD CT ANGIOGRAPHY:? Anterior circulation:? Intracranial internal carotid arteries are normal in size and flow.? The flow within the paired anterior cerebral arteries is normal and symmetric.? The flow within the middle cerebral arteries is normal and symmetric.? The anterior communicating artery is seen.? No aneurysms are seen.? ? Posterior circulation:? The right V4 segment is within normal limits.? The left V4 segment demonstrates focal atherosclerotic calcification, with subtotal narrowing, as on series 8, image 136. There is a normal appearing basilar artery.? There is a type origin of the right posterior cerebral artery, with a corresponding diminutive right P1 segment.? Flow within the posterior cerebral arteries is normal and symmetric.? No aneurysms are seen.? ? NECK CT ANGIOGRAPHY:? Carotid system:? The great vessels demonstrate a conventional anatomy as they arise from the aortic arch.? The origins of the common carotid arteries appear patent.? The common carotid arteries demonstrate normal caliber and courses.? The bifurcation regions are both widely patent.? The internal carotid arteries demonstrate normal calibers and courses.? ? Posterior circulation:? The origins of the vertebral arteries both appear widely patent.? 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 The more superior extracranial portions of both vertebral arteries also demonstrate normal courses and calibers.? The right vertebral artery is dominant to the left. ? Soft tissues:? Visualized neck soft tissues demonstrate no suspicious abnormalities.? ? Bones:? No suspicious bony lesions.? Visualized cervical spine appears normally aligned.? IMPRESSION:? ? No acute intracranial process is seen.? ? Focal calcification can be seen involving the left V4 segment, with subtotal narrowing.? This is unchanged compared to 2019 and is not considered to be acute abnormality.? This may be congenital, with the majority of the flow of the left V4 segment going into the left posterior inferior cerebral artery. ? Within the arteries of the neck, no hemodynamically significant stenosis can be seen. ? Additional findings:? 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 ? ? ? Any quantitative measurements of stenosis were performed using NASCET criteria.? ? ? Dictated by: Marcus Hays M.D. on 01/01/2023 at 14:12 Chest x-ray: Radiologist's Impression: PROCEDURE:? XR CHEST 1V ? INDICATIONS:? fall/cva ? TECHNIQUE:? One view of the chest was acquired.? ? COMPARISON:? [facility], CT, CT ANGIO HEAD AND NECK, 01/01/2023, 14:24. ? FINDINGS:? ? Surgical changes and devices:? Surgical clips in right upper quadrant compatible with prior cholecystectomy.? Lead less cardiac device. ? Lungs and pleura:? Lungs are clear.? No pleural effusions or pneumothorax.? ? Mediastinum:? Mediastinal contours appear normal.? Heart size is normal.? ? Bones and chest wall:? No suspicious bony lesions.? Overlying soft tissues appear unremarkable.? ? IMPRESSION:? Chest without acute cardiopulmonary abnormalities.? No focal airspace disease.? No evidence for acute fracture. ? ? Dictated by: Destin Shultz M.D. on 01/01/2023 at 15:59 ? ? ECG Data Interpretation: Atrial fibrillation rate [address] changes prior MDM Narrative Medical decision making narrative: Patient 79-year-old male presents today as a code stroke on Xarelto last known well yesterday and found down in the backyard. He actually no focal deficits on NIH stroke scale however according to and EMS he kind of walks towards the left EMS reported left leg weakness I find any weakness on my exam he is good [id number] he is able to lift and hold it. Patient is certainly not a tPA candidate he is on Xarelto and last known well was greater than [address] angio do not show any large vessel occlusion or intracranial hemorrhage. Blood work reveals mild elevation of CPK 1100 but no evidence or clinical significant electrolyte abnormality. He is not an MRI candidate secondary to pacemaker placement. However with symptoms reasonable to admit and monitor. Urinalysis does show many bacteria but no nitrates 1+ leukocytes. No evidence of sepsis or severe sepsis Dr. Garcia updated patient's symptoms test results and accepts patient Discharge Plan Departure Patient Disposition: Admitted as Observation Clinical Impression: Brain TIA Admit Date/Time: 01/01/23 17:08 Admit Provider: Alejandro Garcia
[2023-01-01 16:16] LABS: UR Morphine/Opiate cutoff 300 Negative (Negative); Ur Creatinine Normal (Normal); Ur Specific Gravity Normal (Normal); Urine Amphetamines Negative (Negative); Urine Barbiturates Negative (Negative); Urine Benzodiazepines Negative (Negative); Urine Cocaine Negative (Negative); Urine MDMA Negative (Negative); Urine Methadone Negative (Negative); Urine Methamphetamines Negative (Negative); Urine Oxycodone Negative (Negative); Urine Phencyclidine Negative (Negative); Urine Tetrahydrocannabinol Negative (Negative); Urine Tricyclic Antidepressant Negative (Negative); Urine pH Normal (Normal)
--- NOTE | 2023-01-01 16:24 | DI.RAD.S_ITS ---
PROCEDURE: XR CHEST 1V INDICATIONS: fall/cva TECHNIQUE: One view of the chest was acquired. COMPARISON: [facility], CT, CT ANGIO HEAD AND NECK, 01/01/2023, 14:24. FINDINGS: Surgical changes and devices: Surgical clips in right upper quadrant compatible with prior cholecystectomy. Lead less cardiac device. Lungs and pleura: Lungs are clear. No pleural effusions or pneumothorax. Mediastinum: Mediastinal contours appear normal. Heart size is normal. Bones and chest wall: No suspicious bony lesions. Overlying soft tissues appear unremarkable. IMPRESSION: Chest without acute cardiopulmonary abnormalities. No focal airspace disease. No evidence for acute fracture. Dictated by: Destin Shultz M.D. on 01/01/2023 at 15:59 Approved by: Destin Shultz M.D. on 01/01/2023 at 16:08
[2023-01-01 16:31] LABS: COVID19 -Nasal RAPID Negative (Negative)
[2023-01-01 16:35] LABS: Bacteria Urine Many (>30); Culture Indicated Urine Specimen Cultured; RBC Urine 0-1/HPF (0-5/HPF); Squamous Epithelial Cell Urine 0-1 /HPF (0-5/HPF); WBC Urine 5-10/HPF (0-5/HPF)
--- NOTE | 2023-01-01 16:46 | P.HP_ITS ---
History of Present Illness History of Present Illness Date Patient Seen: 01/01/23 Time Patient Seen: 16:46 Chief complaint: Fall,face down,cant walk,on xarelto Narrative: 87-year-old?male?history?of?multiple?falls?who?apparently?fell?earlier?today?and ?was?out?in?h is?[place]?when?it?happened.??He?was?down?for?around?40?minutes?or?so?as?per?patient. ??He?did?not?lose?co nsciousness.??Some?neighbors?across?the?street?came?to?help?eventually Patient?had?difficulty?ambul ating?following?this?EMS?was?summoned?and?he?was?transported?to?the?emergency?de partment? In?the?ER ?he?had?a?pretty?unremarkable?workup?including?head?CT?and?CT?angiogram?of?the?h ead?and?neck.??Did?h ave?a?CPK?of?1100.??Also?evidence?of?a?possible?UTI?with?abnormal?urinalysis Patient?without?any?ad ditional?neurologic?symptoms?in?the?ER?with?a?stroke?score?of?0? Admitted?for?continued?observation ?and?evaluation.??Patient's?spouse?reports?he?has?been?walking?kind?of?leaning?t o?the?left?with?his? 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 Memory loss Mixed hyperlipidemia RBBB Urinary retention Surgical History History of appendectomy History of tonsillectomy S/P cardiac pacemaker procedure (~12/2018) Family History Father CVA (cerebral vascular accident) Mother Dementia Social History household members: spouse Smoking Status: Former smoker alcohol intake: current Meds Home Medications and Allergies Home Medications Medication Instructions Recorded Confirmed Type Prevagen 1 tab PO DAILY 04/14/21 11/10/22 History atorvastatin 80 mg tablet (Lipitor) 80 mg PO HS #90 tabs 07/23/22 11/10/22 Rx finasteride 5 mg tablet 5 mg PO DAILY #90 tabs 08/17/22 11/10/22 Rx lisinopril 10 mg tablet 10 mg PO DAILY #90 tabs 08/17/22 11/10/22 Rx metoprolol succinate 25 mg 25 mg PO DAILY #90 tabs 08/17/22 11/10/22 Rx tablet,extended release 24 hr rivaroxaban 20 mg tablet 20 mg PO DAILY #90 tabs 08/17/22 11/10/22 Rx tamsulosin 0.4 mg capsule 0.4 mg PO DAILY #90 caps 08/17/22 11/10/22 Rx Allergies Allergy/AdvReac Type Severity Reaction Status Date / Time No Known Drug Allergies Allergy Verified 11/10/22 10:06 Review of Systems Review of Systems ROS: Yes All systems reviewed with the patient and are negative except as otherwise documented Exam Vital Signs (past 8 hours): - 01/01/23 14:32 01/01/23 14:31 01/01/23 15:00 Temperature 98.3 F Pulse Rate 56 L 66 Respiratory Rate 14 14 Blood Pressure 103/55 L 110/55 L Pulse Oximetry 97 94 Oxygen Delivery Method Room Air 01/01/23 15:00 01/01/23 15:30 01/01/23 15:30 Temperature Pulse Rate 61 66 Respiratory Rate 22 23 Blood Pressure 109/55 L Pulse Oximetry 95 Oxygen Delivery Method Oxygen Delivery Method Room Air Narrative Exam Narrative: Elderly?male?in?no?obvious?distress?lying?on?a?gurne y?in?the?emergency?department? HEENT-normocephalic?atraumatic?PERRLA?EOMs?intact? Neck-no?bruits? Lungs-good?breath?sounds?clear?no?wheezes?no?crackles? Heart-irregularly?irregular Abdomen-benign? Neuro-no?focal?findings,?gait?not?tested,?no?abnormal?reflexes Objective Labs 01/01/23 14:05 01/01/23 14:05 Labs: Laboratory Results - last 24 hr 01/01/23 01/01/23 01/01/23 14:05 14:05 14:05 WBC 8.2 RBC 3.91 L Hgb 12.8 L Hct 37.9 L MCV 96.8 MCH 32.8 MCHC 33.9 RDW 13.9 Plt Count 202 Neut % (Auto) 68.5 Lymph % (Auto) 24.7 L [place] % (Auto) 5.9 Eos % (Auto) 0.2 L Baso % (Auto) 0.7 Neut # (Auto) 5600 Lymph # (Auto) 2000 [place] # (Auto) 500 Eos # (Auto) 0 Baso # (Auto) 100 PT 15.3 H INR 1.3 APTT 31 Sodium 136 L Potassium 4.4 Chloride 103 Carbon Dioxide 25 BUN 27 H Creatinine 1.05 Estimated GFR > 60 BUN/Creatinine Ratio 25.7 H Glucose 105 Calcium 9.3 Total Bilirubin 1.6 H AST 40 ALT 20 Alkaline Phosphatase 86 Total Creatine Kinase 1103 H Troponin I 0.015 Total Protein 6.6 Albumin 3.9 Globulin 2.7 Albumin/Globulin Ratio 1.4 Urine Color Urine Appearance Urine pH Ur Specific [place] Urine Protein Urine Glucose (UA) Urine Ketones Urine Occult Blood Urine Nitrate Urine Bilirubin Urine Urobilinogen Ur Leukocyte Esterase Urine RBC Urine WBC Ur Squamous Epith Cells Urine Bacteria Ur Culture Indicated? U Opiates 300ng/mL cut Ur Oxycodone Screen Urine Methadone Screen Ur Barbiturates Screen U Tricyclic Antidepress Ur Phencyclidine Scrn Ur Amphetamines Screen U Methamphetamines Scrn Ur MDMA Scrn (Ecstasy) U Benzodiazepines Scrn Urine Cocaine Screen U Marijuana (THC) Screen Ethyl Alcohol < 10 SARS-CoV-2 (PCR) 01/01/23 01/01/23 01/01/23 15:44 15:44 15:44 WBC RBC Hgb Hct MCV MCH MCHC RDW Plt Count Neut % (Auto) Lymph % (Auto) [place] % (Auto) Eos % (Auto) Baso % (Auto) Neut # (Auto) Lymph # (Auto) [place] # (Auto) Eos # (Auto) Baso # (Auto) PT INR APTT Sodium Potassium Chloride Carbon Dioxide BUN Creatinine Estimated GFR BUN/Creatinine Ratio Glucose Calcium Total Bilirubin AST ALT Alkaline Phosphatase Total Creatine Kinase Troponin I Total Protein Albumin Globulin Albumin/Globulin Ratio Urine Color Yellow Urine Appearance Sl cloudy Urine pH 6.0 Ur Specific [place] 1.020 Urine Protein Negative Urine Glucose (UA) Negative Urine Ketones Trace H Urine Occult Blood Negative Urine Nitrate Negative Urine Bilirubin Negative Urine Urobilinogen 1.0 Ur Leukocyte Esterase 1+ H Urine RBC 0-1/hpf D Urine WBC 5-10/hpf H Ur Squamous Epith Cells 0-1 /hpf Urine Bacteria Many (>30) H Ur Culture Indicated? Specimen cultured U Opiates 300ng/mL cut Negative Ur Oxycodone Screen Negative Urine Methadone Screen Negative Ur Barbiturates Screen Negative U Tricyclic Antidepress Negative Ur Phencyclidine Scrn Negative Ur Amphetamines Screen Negative U Methamphetamines Scrn Negative Ur MDMA Scrn (Ecstasy) Negative U Benzodiazepines Scrn Negative Urine Cocaine Screen Negative U Marijuana (THC) Screen Negative Ethyl Alcohol SARS-CoV-2 (PCR) Negative Assessment & Plan Assessment & Plan narrative: 1.?Status?po st?fall-patient?probably?deserves?some?level?of?physical?therapy?evaluation?for? his?gait?and?balance .??Does?not?appear?to?have?any?serious?injuries?although?slight?bump?in?CK?sugge st?he?was?down?maybe?a?bit?longer?than?it?appeared?initially? 2.?Neuro-patient?with?vague?neurologic?symptoms?over?the? last?24?hours.??Current?stroke?score?0.??Patient?chronically?anticoagulated?bill use?of?chronic?atria l?fibrillation.??Will?continue?that?for?now?given?the?questionable?nature?of?per haps?an?acute?event.??However?long- term?given?his?multiple?falls?that?may?not?be?the?best?option 3.?Rhabdomyolysis-netta ent?with?elevated?CPK.??Will?give?him?some?IV?fluids?overnight?and?repeat?creati nine?and?CPK?in?the? morning.??Numbers?not?really?high?enough?to?be?overly?concerned?in?my?opinion?ab out?renal?impairment?etcetera? 4.??Cardiac-patient?with?known?chronic?atrial?fibrillation?with?anticoagulation. 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 go?ahead?and?give?him?at?least?a?single?dose?of?IV?antibiotics?and?re-evaluate?b ased?on?culture?results?etcetera? 6.??Code?status-patient?requests?no?code?in?the?event?of?a?sudden?cardiac?or?res pirat ory?arrest?which?I?went?to?great?lengths?to?emphasize?I?do?not?believe?that?is?a ?likely?occurrence 7.??VTE?prophylaxis-patient?will?continue?on?his?anticoagulation?for?his?AFib?fo r?now?no?additional?VTE?prophylaxis?indicated
[2023-01-01] MEDS: RIVAROXABAN 10 MG TABLET 20 MG PO (18:06)
[2023-01-01] MEDS: cefTRIAXone 2,000 MG in SODIUM CHLORIDE 0.9% 100 ML 200 MG IV (18:07)
[2023-01-01] MEDS: SODIUM CHLORIDE 0.45% 1,000 ML 100 ML IV (18:18)
--- NOTE | 2023-01-01 19:06 | PC.NURSE ---
Day shift: Pt admitted from ED at 1710. A&Ox3. Unaware of year and searches for some words while talking. Aware of place, date, situation. NIH score 3. Pt has very mild facial droop perceptable while smiling and mild drift of LLE. No n/v or pain. Pt ate heart healthy diet dinner. PIV 1/2NS at 100. Skin assessment done. Small abrasions noted on bilateral knees. Pt states it is likely from falling today. Will continue to monitor.
[2023-01-01] MEDS: ATORVASTATIN 20 MG TABLET 80 MG PO (21:02)
--- NOTE | 2023-01-01 23:18 | PC.NURSE ---
NightShift Pt has documented history of BPH, Bladder outlet Obstruction ( with chronic self intermittant catheterization at home), Pt did not have any orders for straight cath, RN called production repairer provider Dr. Teofilo Han, Received verbal orders for straight cath. Pt straight cath at 2320 with an output of 1350 mL. clear devon yellow. Pt tolerated procedure well without any complaints.
[2023-01-02] MEDS: SODIUM CHLORIDE 0.45% 1,000 ML 100 ML IV (04:22)
[2023-01-02 04:39] LABS: BUN Creatinine Ratio 23.5 (6-22); Blood Urea Nitrogen 20 mg/dL (9-20); Calcium 8.4 mg/dL (8.4-10.2); Carbon Dioxide 29 mmol/L (22-32); Chloride 105 mmol/L (98-107); Creatine Kinase 1418 U/L (55-170); Estimated Glomerular Filt Rate > 60 mL/min (>60); Glucose 81 mg/dL (80-110); HEMOLYSIS < 15 (0-50); Potassium 3.4 mmol/L (3.4-5.1); Sodium 137 mmol/L (137-145)
[2023-01-02 04:41] LABS: Add Manual Diff / Slide Review NO; Basophils Absolute Auto 100 /uL (0-100); Basophils Percent Auto 0.9 % (0-2); Eosinophils Absolute Auto 100 /uL (0-450); Hematocrit 35.2 % (41-53); Hemoglobin 11.8 g/dL (13.5-17.5); Lymphocytes Absolute Auto 2500 /uL (1100-4500); Lymphocytes Percent Auto 33.6 % (25-40); Mean Corpuscular HGB Conc 33.6 % (30-36); Mean Corpuscular Hemoglobin 32.5 PG (26-34); Mean Corpuscular Volume 96.9 fL (80-100); Monocytes Absolute Auto 500 /uL (0-900); Monocytes Percent Auto 6.8 % (3-14); Neutrophils Absolute Auto 4200 /uL (1500-7000); Neutrophils Percent Auto 57.7 % (50-75); Platelet Count 166 X10^3/uL (150-400); Red Blood Cell Count 3.63 X10^6/uL (4.5-5.9); Red Cell Distribution Width 13.5 % (11.6-14.8); White Blood Cell Count 7.3 X10^3/uL (4.5-11.0)
[2023-01-02 07:00] VITALS: BP 104/58; PULSE 55; RESP 16; TEMP 36.1; O2SAT 100
[2023-01-02] MEDS: TAMSULOSIN 0.4 MG CAPSULE PO (08:43)
[2023-01-02] MEDS: FINASTERIDE 5 MG TABLET PO (08:43)
--- NOTE | 2023-01-02 08:48 | CM.DANOTE ---
DCP: Chart review for case, met with patient at bedside, they agree to case management assessment. Completed DCP assessment based on information available. Patient is 87 year old admitted for fall in his yard, with concern for falls with anticoagulation for known AFib. Awake, alert, ate all breakfast independently, answers all questions but does not recall how he got here. States he drove, but then confirms it was by ambulance. States he still drives, as does his and that they live in their own multi-level home at [address] [place] [address]. Confirms that he plans to live in his own home until the end of life. Confirms that son could be alternate emergency contact but is now disabled. Daughter lives in [place], [place] but he doesn?t have her contact info with him. 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 Pending PT eval and medical clearances. Agrees with the idea of HH if indicated at DC. Naheed Barron RN, CM Discharge Planning/Care Management CM Discharge Assessment Start: 01/02/23 08:41 Freq: Status: Active Protocol: Document 01/02/23 08:41 BQ (Rec: 01/02/23 08:48 BQ [id number]) Discharge Planning Assessment Assigned Quarter Backer Naheed Barron RN, CM Advance Directives? Yes: Health care dir/living will Advance Directives on File No History Provided By Patient,Medical Record Has Patient been admitted in last 30 No days? Prior Living Arrangements House Household Members spouse Type of transporation used prior to Drives own vehicle admit Independent with ADL's Yes Is patient alert and oriented? Yes: Slow to respond to questions but recalls when prompted Caregiver for Another No Patient/Family Preference Home with Home Health Barriers to Discharge Yes Comment Pending PT eval Discharge Plan Home with Home Health Referrals Initiated None needed Medicare Choice List Provided Yes Medicare choice list reviewed on patient electronic tablet with Whiteboard Updated in Patient Room with Yes name and ext. # of Quarter Backer Review Status In Process Next Review Type Continued Stay Review
[2023-01-02 08:51] VITALS: BP 104/58; PULSE 55
--- NOTE | 2023-01-02 10:20 | PT.IIE ---
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 Memory loss Mixed hyperlipidemia RBBB Urinary retention Physical Therapy Inpatient Evaluation/Re-Eval M1 PT/OT-IP Prior Functional Status Start: 01/02/23 13:46 Freq: NEEDED Status: Active Protocol: Document 01/02/23 10:20 AB (Rec: 01/02/23 14:20 AB [id number]) Medical Review Prior Functional Status Medical History Reviewed Yes Communication able to make needs known; has memory issues Mobility and Gait pt stated that he is independent with all mobilities and ambulation without AD; pt stated that he has 4 falls already this year (stated his legs just gave out ) Social History Household Members spouse Living Arrangements House Number of Floors (Floors) Two Floors Number of Stairs To Enter/Railing? 2 steps to enter without rails Home Environment Standard Height Toilet,Walk in Shower,Tub/Shower Home Equipment Front Wheel Walker,Quad Cane, Straight Cane Additional Social History Comment spouse will not be able to assist pt at home M2 PT-IP Current Condition Start: 01/02/23 13:46 Freq: NEEDED Status: Active Protocol: Document 01/02/23 10:20 AB (Rec: 01/02/23 14:20 AB [id number]) Physical Therapy Current Condition Current Condition Evaluation Date 01/02/23 Treatment Diagnosis GLF; rhabdomyolysis; difficulty in walking Onset Date 01/01/23 M3 PT-IP Subjective Start: 01/02/23 13:46 Freq: NEEDED Status: Active Protocol: Document 01/02/23 10:20 AB (Rec: 01/02/23 14:20 AB [id number]) Subjective Physical Therapy Visit Type Type Initial Evaluation Visit Start Time 10:20 Visit Stop Time 11:14 Total Visit Minutes 64 Number of TITLE ONE 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 TEACHER Visits 0 Physical Therapy Visit Comments Patient Comments wants to go home Therapy Pain Assessment Pain Present Pain Present Denied Pain M4 PT-IP Mobility and Gait Start: 01/02/23 13:46 Freq: NEEDED Status: Active Protocol: Document 01/02/23 10:20 AB (Rec: 01/02/23 14:20 AB [id number]) PT-Bed Mobility Assessment Supine to Sit Supine to Sit Standby Assistance PT-Transfer Assessment Sit to and From Stand Sit to and from Stand Moderate Assistance,1 Person Assistance,Use of Upper Extremities Equipment Transfer Assistive Device Gait Belt,Front Wheeled Walker Orthotic/Prosthetic Devices or Brace: No Transfers Transfer Destination Chair Transfer Technique ambulated Transfer Ability Level of Assist Moderate Assistance,1 Person Assistance,Use of Upper Extremities Comments Mobility Comments pt wanting to go home but agreed to do PT. pt completed supine to sit SBA. able to sit on EOB SBA. completed sit to stand mod A and max cues. (+) posterior trunk lean and LE leaning against the bed. Pt. ambulation using FWW 10 ft mod A and max cues. presents with unsteady antalgic gait with increase lateral lean to the L. pt hesitant to use a FWW. Assessed ambulation without AD , mod to max A with shuffling gait ~ 5 ft. educated pt on safety and use of FWW at home. pt adamant about going home. pt has 2 steps to enter the house without AD . educated on use of SPC for stairs. attempted stair climbing using SPC but pt unable to complete despite max A provided. pt sat back on the chair. positioned on the chair. call light and table placed within reach. informed nurse and the doctor regarding pt's mobility and d/ c recommendation. Gait Assessment Gait Gait Assistance Required: Moderate Assistance,Maximum Assistance,1 Person Assist Distance (Feet) 10 Able to Maintain Weight Bearing Status Yes During Gait Assistive Devices Assistive Device Gait Belt,Front Wheeled Walker Orthotic/Prosthetic Devices or Brace: No Gait Deviations General Gait Pattern Antalgic,Decreased Stride Length,Decreased Feet Clearance,Step-to Gait Factors Limiting Gait Function Factors Limiting Gait Function Decreased Activity Tolerance, Decreased Strength,Difficulty Following Directions,Limited Range of Motion,Pain,Poor Balance,Poor Safety Awareness PT-Balance Assessment Sitting Balance and Reactions Static Sitting Balance Ability Good Dynamic Sitting Balance Ability Fair Standing Balance and Reactions Static Standing Balance Ability Poor Dynamic Standing Balance Ability Poor Device Used FWW M5 PT-IP Objective Assessments Start: 01/02/23 13:46 Freq: NEEDED Status: Active Protocol: Document 01/02/23 10:20 AB (Rec: 01/02/23 14:20 AB [id number]) Orientation Orientation/Cognition Level of Alertness Confusional State Orientation Name,Place,Situation Memory Description Short Term Impaired,Shelter Impaired Gross Range of Motion Lower Extremity ROM Assessment Within Functional Limits Strength Lower Extremity Strength Hip 4-/5 Knee 4-/5 Sensation Assessment Sensation Gross Sensation WNL Muscle Tone Muscle Tone WNL Yes M6 PT-IP Treatment Start: 01/02/23 13:46 Freq: NEEDED Status: Active Protocol: Document 01/02/23 10:20 AB (Rec: 01/02/23 14:20 AB [id number]) Physical Therapy Treatment Education Education Provided Safety M7 PT-IP Assessment and Plan Start: 01/02/23 13:46 Freq: NEEDED Status: Active Protocol: Document 01/02/23 10:20 AB (Rec: 01/02/23 14:20 AB [id number]) PT Summary Assessment and Plan Potential Rehabilitation Potential Fair Status of Condition at Evaluation Evolving Summary Impairments Pain,ROM,Strength,Balance, Coordination,Sensation,Tone, Cognition,Bed Mobility, Transfers,Gait,Activity Tolerance Assessment Summary pt requiring mod A with ambulation using FWW. pt with unsteady gait and recommending use of FWW at this time. pt unable to complete stair climbing despite max assistance given. pt's spouse will not be able to assist hime. pt will require SNF rehab at this time . Goals Bed Mobility Goal Contact Guard Assistance Transfer Goal Contact Guard Assistance,Front Wheeled Walker Gait Goal Contact Guard Assistance,Front Wheel Walker Gait Distance 200 Other Goals up/down 2 steps without AD/SPC min A Days to Meet Goals 10 Frequency of Treatment Frequency Of Treatment Once a Day Treatment Plan Physical Therapy Treatment Plan Bed Mobility Training,Transfer Training,Gait Training, Therapeutic Exercise,Balance Retraining,Post Op Education, Discharge Planning,Hot or Cold Pack,Neuromuscular Re-ed, Coordination Retraining,Manual Therapy Precautions Other Precautions falls Recommendations To Nursing Amount of Assist Needed 1 Person Assist Discharge Recommendations PT Discharge Recommendations SNF Rehab Transportation Needs at Discharge Wheelchair/Cabulance
--- NOTE | 2023-01-02 11:11 | P.PN_ITS ---
Subjective Subjective Date Patient Seen: 01/02/23 Interval history: The pt has no concerns this morning. He reports that he feels back to normal. He denies any chest pain, SOB, significant confusion, dysuria, abdominal pain. The pt states he wishes to go home and he is unwilling to stay any longer in the hospital. Exam Vital Signs (past 8 hours): - 01/02/23 07:00 01/02/23 08:51 01/02/23 07:00 Temperature 97 F L Pulse Rate 55 L 55 L Respiratory Rate 16 Blood Pressure 104/58 L 104/58 L Pulse Oximetry 100 100 Oxygen Delivery Method Room Air Oxygen Flow Rate 0 Oxygen Delivery Method Room Air Oxygen Flow Rate 0 Narrative Exam Narrative: Gen: NAD, pleasantly conversant, appears stated age CV: irregularly irregular, no murmurs Resp: clear to auscultation bilaterally Abd: soft, nontender, nondistended, normoactive bowel sounds Ext: trace edema Objective Labs 01/02/23 03:38 01/02/23 03:38 Labs: Laboratory Results - last 24 hr 01/01/23 01/01/23 01/01/23 14:05 14:05 14:05 WBC 8.2 RBC 3.91 L Hgb 12.8 L Hct 37.9 L MCV 96.8 MCH 32.8 MCHC 33.9 RDW 13.9 Plt Count 202 Neut % (Auto) 68.5 Lymph % (Auto) 24.7 L Haakon % (Auto) 5.9 Eos % (Auto) 0.2 L Baso % (Auto) 0.7 Neut # (Auto) 5600 Lymph # (Auto) 2000 Haakon # (Auto) 500 Eos # (Auto) 0 Baso # (Auto) 100 PT 15.3 H INR 1.3 APTT 31 Sodium 136 L Potassium 4.4 Chloride 103 Carbon Dioxide 25 BUN 27 H Creatinine 1.05 Estimated GFR > 60 BUN/Creatinine Ratio 25.7 H Glucose 105 Calcium 9.3 Total Bilirubin 1.6 H AST 40 ALT 20 Alkaline Phosphatase 86 Total Creatine Kinase 1103 H Troponin I 0.015 Total Protein 6.6 Albumin 3.9 Globulin 2.7 Albumin/Globulin Ratio 1.4 Urine Color Urine Appearance Urine pH Ur Specific Clover Urine Protein Urine Glucose (UA) Urine Ketones Urine Occult Blood Urine Nitrate Urine Bilirubin Urine Urobilinogen Ur Leukocyte Esterase Urine RBC Urine WBC Ur Squamous Epith Cells Urine Bacteria Ur Culture Indicated? U Opiates 300ng/mL cut Ur Oxycodone Screen Urine Methadone Screen Ur Barbiturates Screen U Tricyclic Antidepress Ur Phencyclidine Scrn Ur Amphetamines Screen U Methamphetamines Scrn Ur MDMA Scrn (Ecstasy) U Benzodiazepines Scrn Urine Cocaine Screen U Marijuana (THC) Screen Ethyl Alcohol < 10 SARS-CoV-2 (PCR) 01/01/23 01/01/23 01/01/23 15:44 15:44 15:44 WBC RBC Hgb Hct MCV MCH MCHC RDW Plt Count Neut % (Auto) Lymph % (Auto) Haakon % (Auto) Eos % (Auto) Baso % (Auto) Neut # (Auto) Lymph # (Auto) Haakon # (Auto) Eos # (Auto) Baso # (Auto) PT INR APTT Sodium Potassium Chloride Carbon Dioxide BUN Creatinine Estimated GFR BUN/Creatinine Ratio Glucose Calcium Total Bilirubin AST ALT Alkaline Phosphatase Total Creatine Kinase Troponin I Total Protein Albumin Globulin Albumin/Globulin Ratio Urine Color Yellow Urine Appearance Sl cloudy Urine pH 6.0 Ur Specific Clover 1.020 Urine Protein Negative Urine Glucose (UA) Negative Urine Ketones Trace H Urine Occult Blood Negative Urine Nitrate Negative Urine Bilirubin Negative Urine Urobilinogen 1.0 Ur Leukocyte Esterase 1+ H Urine RBC 0-1/hpf D Urine WBC 5-10/hpf H Ur Squamous Epith Cells 0-1 /hpf Urine Bacteria Many (>30) H Ur Culture Indicated? Specimen cultured U Opiates 300ng/mL cut Negative Ur Oxycodone Screen Negative Urine Methadone Screen Negative Ur Barbiturates Screen Negative U Tricyclic Antidepress Negative Ur Phencyclidine Scrn Negative Ur Amphetamines Screen Negative U Methamphetamines Scrn Negative Ur MDMA Scrn (Ecstasy) Negative U Benzodiazepines Scrn Negative Urine Cocaine Screen Negative U Marijuana (THC) Screen Negative Ethyl Alcohol SARS-CoV-2 (PCR) Negative 01/02/23 01/02/23 03:38 03:38 WBC 7.3 RBC 3.63 L Hgb 11.8 L Hct 35.2 L MCV 96.9 MCH 32.5 MCHC 33.6 RDW 13.5 Plt Count 166 Neut % (Auto) 57.7 Lymph % (Auto) 33.6 Haakon % (Auto) 6.8 Eos % (Auto) 1.0 L Baso % (Auto) 0.9 Neut # (Auto) 4200 Lymph # (Auto) 2500 Haakon # (Auto) 500 Eos # (Auto) 100 Baso # (Auto) 100 PT INR APTT Sodium 137 Potassium 3.4 Chloride 105 Carbon Dioxide 29 BUN 20 Creatinine 0.85 Estimated GFR > 60 BUN/Creatinine Ratio 23.5 H Glucose 81 Calcium 8.4 Total Bilirubin AST ALT Alkaline Phosphatase Total Creatine Kinase 1418 H Troponin I Total Protein Albumin Globulin Albumin/Globulin Ratio Urine Color Urine Appearance Urine pH Ur Specific Clover Urine Protein Urine Glucose (UA) Urine Ketones Urine Occult Blood Urine Nitrate Urine Bilirubin Urine Urobilinogen Ur Leukocyte Esterase Urine RBC Urine WBC Ur Squamous Epith Cells Urine Bacteria Ur Culture Indicated? U Opiates 300ng/mL cut Ur Oxycodone Screen Urine Methadone Screen Ur Barbiturates Screen U Tricyclic Antidepress Ur Phencyclidine Scrn Ur Amphetamines Screen U Methamphetamines Scrn Ur MDMA Scrn (Ecstasy) U Benzodiazepines Scrn Urine Cocaine Screen U Marijuana (THC) Screen Ethyl Alcohol SARS-CoV-2 (PCR) [facility] Medical History Acute CVA (cerebrovascular accident) Atrial fibrillation Bladder outlet obstruction BPH (benign prostatic hyperplasia) Essential hypertension Family history of CVA Family history of dementia Hypotonic bladder Left anterior fascicular block 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 1) Ground level fall: Pt evaluated by PT this morning, who notes significant balance concerns, even with a 4-wheeled walker. Potentially UTI contributing. 2) UTI: Gram negative bacilli growing 3) Cognitive decline: Pt with unclear baseline, after speaking with his as well. He is A&Ox3, however is an unreliable historian with contradicting reports to different people. 4) Rhabdomyolysis: CK unfortunately further elevated this morning 5) Chronic atrial fibrillation: Stable, no RVR Pt expressed a desire for immediate discharge this morning. After some discussion, he was willing to meet with PT prior to leaving. During PT evaluation, pt was noted to be quite unsteady even with a 4-wheeled walker. He was unable to safely ascend 2 stairs, which he has at home to get into his house, without a railing. He mentiond to the PT that if he had to stay here longer he'd rather just shoot himself. After meeting with PT, this provider discussed his care with him and his again. Discussed his plans upon disc harge home. The pt stated that he would go home and just lay in the grass. When asked how he would get inside, he said I don't want to go inside, I'm just going to . When further questioned, the pt did endorse the desire to kill himself at home. When asked if he has a gun at home, the pt said I'm not going to discuss that with you, and then would not answer any additional questions. His stepped out of the room, and discussed his ongoing mental status. The pt has reportedly told her that he is worried that his mind is slipping a little, but she denies any overt dementia. She states that he is stubborn and used to getting his way. She does not feel she has a say in his decisions at all. Social work was consulted, and came to talk with the patient as well. See their note for full details, but in summary the patient has been expressing ideas of self harm to his for a couple weeks, but has never expressed a plan. He did continue to endorse thought so self-harm to [employer], but was very defensive and unwilling to discuss much. His son was contacted, and will be immediately coming to [place] from [place]. There was grave concern for that patient's safety at home, however we did not feel that we could physically restrain him to keep him in the hospital, which would have been necessary. The pt did sign AMA paperwork. [employer] was contacted as the patient left the hospital, and will be immediately going to their home. APS was also contacted for self-neglectful behavior. Rx for Keflex was sent in for the patient to take as an outpatient for his UTI, still pending final culture results. More than 75 minutes spent in care of this patient, reviewing his chart, speaking with the patient and his , coordinating care with nursing and care management. Time Spent With Patient Time with patient: 70 minutes or more, with 50% spent counseling/coordinating
--- NOTE | 2023-01-02 11:52 | PC.NURSE ---
Day shift: At 1030 this AM pt reports wanting to leave and go home as soon as possible. Talked to MD Han and she went in to speak with patient. Patient wants to leave AMA. We asked that he consider staying to work with PT. has concerns about PT and necessity for antibiotics to treat UTI. PT Cami saw patient and said he was not safe to go home due to ambulation concerns and he is unstable on his feet. Pt insisted on leaving. This RN removed PIVs. Pt signed AMA form. TANNER Jarvis in room to speak with patient and patient alluded to having a gun at home and lying in the grass and letting me . This RN helped Pt's Jesika call thier son Henry who lives in [place]. He left his house and is on his way to his parents. Pt left AMA and TANNER Jarvis stated she would call [employer] and APS. We encouraged patient and patient's not to return home, and to stay at the hospital. Pt insisted on going home. Pt's said she would drive him. PCT escorted patient via wheelchair and patient's to exit. MD Han, this RN, and TANNER Jarvis in room with patient prior to patient leaving. All aware of situation. This RN also let Nurse Coordinator Lane know.
--- NOTE | 2023-01-02 13:31 | CM.SWNOTE ---
Addendum entered by Andria OneillTANNER 01/02/23 14:31: ADD: APS Online Report Confirmation Number: [id number] Original Note: HEALTH ANALYST Note This HEALTH ANALYST requested to assist in assessment of need for this 87 yo, wanting to leave AMA this morning and making threatening comments about killing himself According to Dr Han, while discussing how patient will safely make it back in his home, patient said he would just go home and and spouse Jesika shared that patient had been talking like this for weeks. Patient had denied a plan to commit suicide to Dr Han and refused to answer questions about weapons in the home Upon entering the room, patient sitting up in the window seat, tells this HEALTH ANALYST he is ready to go but agreeable to talking briefly. Patient A+O, short term memory loss noted but difficult to assess mild-mod (?) Patient became more and more agitated as this HEALTH ANALYST asked questions about suicidality Introduced self and role and explained that based on remarks patient made about wanting to kill himself and not be alive anymore staff were concerned about patient's immediate safety. Patient became defensive immediately Spouse tearful throughout visit and confirms patient has been taking about not living anymore for the last 2 weeks. Spouse cannot recall an event that might have triggered these thoughts and comments. Spouse denies family h/o suicide When asked if patient has been living with suicidal thoughts he shared that he has had thoughts of suicide for 2 years, then states and they have gotten stronger since having to come in here I was just told they don't know what's going on Spouse very tearful at this time and this HEALTH ANALYST asks what will your do without you around? Patient says she will be okay, the kids will take care of her Then asked patient about weapons in the home, he refused to answer. Spouse Jesika confirms patient has a gun at home Asked patient if he had a plan to kill himself and patient answers I won't tell you anything because you'll send someone to stop me Then asked patient the question if you could have everything exactly as you wanted it tomorrow when you woke up, what would see? Patient: not talking to you At that time, we were able to get son Henry Quigley ([place]) on the phone P [phone] to explain that patient appeared to be actively suicidal although was not forthcoming with information and plan. Suggested Henry drive up [place] if possible to assist his parents through this crisis. Henry asked is this dementia? answered briefly that dementia could certainly be an element. Patient then asked for spouse's cell phone and once given, marched it directly back to spouse Patient increasingly eager to leave and tells this HEALTH ANALYST that his will drive him home. Son driving from [place], explains that spouse does not have friends she can rely on today to help Encouraged spouse Jesika to take her time getting home, pull worker as needed and find an ER if she felt her safety or patient's was at risk. Asked for physical address and patient instructed spouse DO NOT give them our address . Spouse wrote the following on the white board: [address] ([place]) Patient agreed to use a wheelchair, escorted by MERCANTILE REPORTER Placed call to [employer], summarized conversation w/patient and spouse above and discussed patient's eagerness to leave the hospital. Patient refused to stay any longer and spouse was agreeable to driving patient home with her. Provided patient/spouse's address and explained that patient sounded actively suicidal although denied having a weapon and denied having a plan for suicide. spouse confirmed there is a gun in the home. Provided the number for son Henry in hopes he could give addtl. information about this couple Spoke with both Officer Hannah ([employer]) and then with with Suha Mckeon, Mental health professional, [facility] office P [phone] (available again Wednesday ) who eventually called again from patient's home to update this HEALTH ANALYST that Mr Quigley was actively suicidal and she would be placing a call to DCR to discuss. Next steps: Patient would likely be assessed by DCR in his home and either found appropriate for detainment and taken in by PD to the ER for medical clearance or cleared and given resources APS report made online for self neglectful behavior TANNER Khan
== END 2023-01-02 11:30 | disposition home or self-care (01) ==
LOC: ED 16:36 → AC 17:08
PROVIDERS: Admitting Provider Internal Medicine; Emergency Provider Emergency Medicine; PCP Internal Medicine; Referring Provider Emergency Medicine; Visit Provider Internal Medicine
DX: N39.0 Urinary tract infection, site not specified (principal); B96.89 Other specified bacterial agents as the cause of diseases classified elsewhere; Z53.29 Procedure and treatment not carried out because of patient's decision for other reasons; R41.81 Age-related cognitive decline; M62.82 Rhabdomyolysis; W01.0XXA Fall on same level from slipping, tripping and stumbling without subsequent striking against object, initial encounter; Y92.096 Garden or yard of other non-institutional residence as the place of occurrence of the external cause; R29.700 NIHSS score 0; Z91.81 History of falling; I10 Essential (primary) hypertension; I48.20 Chronic atrial fibrillation, unspecified; Z79.01 Long term (current) use of anticoagulants; Z20.822 Contact with and (suspected) exposure to COVID-19
CPT/HCPCS: 36415; 70450; 70496; 70498; 71045; 80048; 80053; 80305; 80320; 81001; 82550; 84484; 85025; 85610; 85730; 87077; 87086; 87186; 87635; 93005; 96365; 97162; 97530; 99222; 99284; C9803; G0378; J0696; J7050

== ENCOUNTER 2023-01-27 09:53 | Emergency (ER) | payer MEDICARE, SELFPAY ==
[2023-01-01 19:39] VITALS: BMI 23.8
[2023-01-27] VITALS (18 sets, daily range): BP systolic 94–120; BP diastolic 51–59; PULSE 55–85; RESP 0–26; TEMP 36.8; O2SAT 94–100; BMI 23.5
--- NOTE | 2023-01-27 09:59 | DI.CT.S_ITS ---
PROCEDURE: CT HEAD/BRAIN WO CON INDICATIONS: confusion syncope TECHNIQUE: Noncontrast 4.5 mm thick angled axial sections acquired from the foramen magnum to the vertex, with coronal and sagittal reformats. For radiation dose reduction, the following was used: automated exposure control, adjustment of mA and/or kV according to patient size. COMPARISON: [facility], CT, CT HEAD/BRAIN WO CON, 09/28/2022, 8:40. FINDINGS: Image quality: Excellent. CSF spaces: Basal cisterns are patent. No extra-axial fluid collections. The ventricles are symmetric in size and shape. Brain: No intracranial bleeds or masses. There is cerebral volume loss for age, with resultant ventricular and sulcal prominence. There are periventricular and deep white matter chronic small vessel ischemic changes. There is intracranial internal carotid artery atherosclerosis. Skull and face: Calvarium and visualized facial bones appear intact, without suspicious lesions. Sinuses: Visualized sinuses and mastoids are clear. IMPRESSION: No acute intracranial abnormality. Dictated by: Elio Ghotra M.D. on 01/27/2023 at 10:23 Approved by: Elio Ghotra M.D. on 01/27/2023 at 10:24
--- NOTE | 2023-01-27 09:59 | ED.SYNCOPE ---
HPI - Syncope General Chief Complaint: Syncope Stated Complaint: GLF/weakness Time Seen by Provider: 01/27/23 09:55 History of Present Illness HPI narrative: Patient is a 87-year-old male history of atrial fibrillation on Xarelto, hyperlipidemia, recent TIA January 01 presents today with increasing weakness. He overall is pretty poor historian. But has been working out in the [employer] quite a bit over the past couple of days. He fell and was really unable to get up. EMS reports that he was feeling warm. No real injury from the fall did not really hit his head. He is mildly confused feels warm to the touch. It is quite hot outside. Moving all extremities without facial droop. He was previously admitted for TIA January 01 but then left the next day against medical advice. Related Data Home Medications Medication Instructions Recorded Confirmed Prevagen 1 tab PO DAILY 04/14/21 01/01/23 Previous Rx's Medication Instructions Recorded atorvastatin 80 mg tablet (Lipitor) 80 mg PO HS #90 tabs 07/23/22 finasteride 5 mg tablet 5 mg PO DAILY #90 tabs 08/17/22 lisinopril 10 mg tablet 10 mg PO DAILY #90 tabs 08/17/22 metoprolol succinate 25 mg 25 mg PO DAILY #90 tabs 08/17/22 tablet,extended release 24 hr tamsulosin 0.4 mg capsule 0.4 mg PO DAILY #90 caps 08/17/22 cephalexin 500 mg capsule 500 mg PO BID #14 caps 01/02/23 Allergies Allergy/AdvReac Type Severity Reaction Status Date / Time No Known Drug Allergies Allergy Verified 01/27/23 10:01 Review of Systems Review of Systems ROS Unobtainable: All systems reviewed & are unremarkable except as noted in HPI and below Patient History Medical History Acute CVA (cerebrovascular accident) Atrial fibrillation Bladder outlet obstruction BPH (benign prostatic hyperplasia) Essential hypertension Family history of CVA Family history of dementia Hypotonic bladder Left anterior fascicular block 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 Memory loss Mixed hyperlipidemia RBBB Urinary retention Surgical History History of appendectomy History of tonsillectomy S/P cardiac pacemaker procedure (~12/2018) Family History Father CVA (cerebral vascular accident) Mother Dementia Social History household members: spouse Smoking Status: Former smoker alcohol intake: former Smoking Status: Former smoker alcohol intake frequency: 3 or more drinks per day Substance Use Type: does not use Exam Initial Vital Signs Initial Vital Signs: Vital Signs Temperature 98.3 F 01/27/23 09:45 Pulse Rate 85 01/27/23 09:45 Respiratory Rate 18 01/27/23 09:45 Blood Pressure 120/53 L 01/27/23 09:45 Pulse Oximetry 96 01/27/23 09:45 Oxygen Delivery Method Room Air 01/27/23 09:45 GENERAL: Alert elderly 87-year-old male, hot to touch HEENT: Head atraumatic,EOMI, pupils reactive, face symmetric, moist mucous membranes CARDIOVASCULAR: Regular rate and rhythm without murmurs, rubs or gallops. RESPIRATORY: Breath sounds equal bilaterally, no wheezes rales or rhonchi. ABDOMEN: Soft, nontender. Normoactive bowel sounds all 4 quadrants. No guarding or rebound. EXTREMITIES: Normal range of motion, no clubbing or edema. Neurovascularly intact NEUROLOGICAL: Alert and oriented x2. [employer]ian Blind Mechanic strength equal bilaterally able to move both lower extremities no facial droop SKIN: Warm, dry, no laceration, no petechiae, no rashes or lesions. Course Orders Ordered: ED Orders 01/27/23 10:45 Blood Culture Stat Discontinued Medications Sodium Chloride (Normal Saline 0.9%) 1,000 mls @ 1,000 mls/hr IV CONT RYAN Last Infusion: 01/27/23 12:25 Dose: 0 mls/hr Documented By: Admin: 01/27/23 10:05 Dose: 1,000 mls/hr Documented By: EUSEBIO Sodium Chloride (Normal Saline 0.9%) 1,000 mls @ 1,000 mls/hr IV BOLUS ONE Stop: 01/27/23 11:41 Last Infusion: 01/27/23 13:03 Dose: 0 mls/hr Documented By: Admin: 01/27/23 12:26 Dose: 1,000 mls/hr Documented By: EUSEBIO Vital Signs Vital signs: Vital Signs - 8 hr 01/27/23 11:30 01/27/23 11:30 01/27/23 12:00 Pulse Rate 56 L Pulse Rate [Orthostatic Lying] Pulse Rate [Orthostatic Sitting] Pulse Rate [Orthostatic Standing] Respiratory Rate 17 Blood Pressure 96/53 L 96/58 L Blood Pressure [Orthostatic Lying] Blood Pressure [Orthostatic Sitting] Blood Pressure [Orthostatic Standing] Pulse Oximetry 97 01/27/23 12:00 01/27/23 12:21 01/27/23 12:21 Pulse Rate 57 L 55 L Pulse Rate [Orthostatic Lying] Pulse Rate [Orthostatic Sitting] Pulse Rate [Orthostatic Standing] Respiratory Rate 18 13 Blood Pressure 107/54 L Blood Pressure [Orthostatic Lying] Blood Pressure [Orthostatic Sitting] Blood Pressure [Orthostatic Standing] Pulse Oximetry 96 100 01/27/23 12:30 01/27/23 13:04 01/27/23 12:59 Pulse Rate 57 L Pulse Rate [Orthostatic Lying] 55 L Pulse Rate [Orthostatic Sitting] 66 Pulse Rate [Orthostatic Standing] 76 Respiratory Rate 14 Blood Pressure 108/54 L Blood Pressure [Orthostatic Lying] 108/54 L Blood Pressure [Orthostatic Sitting] 107/51 L Blood Pressure [Orthostatic Standing] 112/59 L Pulse Oximetry 100 01/27/23 12:59 01/27/23 13:00 01/27/23 13:00 Pulse Rate 64 59 L Pulse Rate [Orthostatic Lying] Pulse Rate [Orthostatic Sitting] Pulse Rate [Orthostatic Standing] Respiratory Rate 18 23 Blood Pressure 107/51 L Blood Pressure [Orthostatic Lying] Blood Pressure [Orthostatic Sitting] Blood Pressure [Orthostatic Standing] Pulse Oximetry 100 100 01/27/23 13:01 01/27/23 13:01 01/27/23 13:30 Pulse Rate 76 60 Pulse Rate [Orthostatic Lying] Pulse Rate [Orthostatic Sitting] Pulse Rate [Orthostatic Standing] Respiratory Rate 25 H Blood Pressure 112/59 L Blood Pressure [Orthostatic Lying] Blood Pressure [Orthostatic Sitting] Blood Pressure [Orthostatic Standing] Pulse Oximetry 100 100 MDM - Syncope Lab Data 01/27/23 09:55 01/27/23 09:55 Labs: Lab Results 01/27/23 01/27/23 01/27/23 Range/Units 09:55 09:55 09:55 WBC 6.7 (4.5-11.0) X10^3/uL RBC 4.18 L (4.5-5.9) X10^6/uL Hgb 13.8 (13.5-17.5) g/dL Hct 40.2 L (41-53) % MCV 96.2 (80-100) fL MCH 33.1 (26-34) PG MCHC 34.4 (30-36) % RDW 13.4 (11.6-14.8) % Plt Count 191 (150-400) X10^3/uL Neut % (Auto) 65.5 (50-75) % Lymph % (Auto) 28.5 (25-40) % [place] % (Auto) 4.7 (3-14) % Eos % (Auto) 0.5 L (2-4) % Baso % (Auto) 0.8 (0-2) % Neut # (Auto) 4400 (0924-3705) /uL Lymph # (Auto) 1900 (9904-4425) /uL [place] # (Auto) 300 (0-900) /uL Eos # (Auto) 0 (0-450) /uL Baso # (Auto) 100 (0-100) /uL Sodium 137 (137-145) mmol/L Potassium 4.6 (3.4-5.1) mmol/L Chloride 101 (98-107) mmol/L Carbon Dioxide 22 (22-32) mmol/L BUN 23 H (9-20) mg/dL Creatinine 1.10 (0.66-1.25) mg/dL Estimated GFR > 60 (>60) mL/min BUN/Creatinine Ratio 20.9 (6-22) Glucose 96 (80-110) mg/dL Lactate 7.7 H* (0.7-2.1) mmol/L Calcium 9.4 (8.4-10.2) mg/dL Total Bilirubin 1.8 H (0.2-1.3) mg/dL AST 28 (17-59) IU/L ALT 26 (<50) IU/L Alkaline Phosphatase 89 (38-126) U/L Total Creatine Kinase 81 (55-170) U/L Troponin I < 0.012 (0.01-0.034) ng/mL Total Protein 7.3 (6.3-8.2) g/dL Albumin 4.3 (3.5-5.0) g/dL Globulin 3.0 (1.7-4.1) g/dL Albumin/Globulin Ratio 1.4 (1.0-2.8) Lipase 169 (23-300) U/L Procalcitonin (<0.5) ng/mL 01/27/23 01/27/23 Range/Units 09:55 12:30 WBC (4.5-11.0) X10^3/uL RBC (4.5-5.9) X10^6/uL Hgb (13.5-17.5) g/dL Hct (41-53) % MCV (80-100) fL MCH (26-34) PG MCHC (30-36) % RDW (11.6-14.8) % Plt Count (150-400) X10^3/uL Neut % (Auto) (50-75) % Lymph % (Auto) (25-40) % [place] % (Auto) (3-14) % Eos % (Auto) (2-4) % Baso % (Auto) (0-2) % Neut # (Auto) (8743-0050) /uL Lymph # (Auto) (5406-6850) /uL [place] # (Auto) (0-900) /uL Eos # (Auto) (0-450) /uL Baso # (Auto) (0-100) /uL Sodium (137-145) mmol/L Potassium (3.4-5.1) mmol/L Chloride (98-107) mmol/L Carbon Dioxide (22-32) mmol/L BUN (9-20) mg/dL Creatinine (0.66-1.25) mg/dL Estimated GFR (>60) mL/min BUN/Creatinine Ratio (6-22) Glucose (80-110) mg/dL Lactate 1.2 (0.7-2.1) mmol/L Calcium (8.4-10.2) mg/dL Total Bilirubin (0.2-1.3) mg/dL AST (17-59) IU/L ALT (<50) IU/L Alkaline Phosphatase (38-126) U/L Total Creatine Kinase (55-170) U/L Troponin I (0.01-0.034) ng/mL Total Protein (6.3-8.2) g/dL Albumin (3.5-5.0) g/dL Globulin (1.7-4.1) g/dL Albumin/Globulin Ratio (1.0-2.8) Lipase (23-300) U/L Procalcitonin 0.06 (<0.5) ng/mL Imaging Data CT scan - head: Radiologist's Impression: PROCEDURE:? CT HEAD/BRAIN WO CON ? INDICATIONS:? confusion syncope ? TECHNIQUE:? Noncontrast 4.5 mm thick angled axial sections acquired from the foramen magnum to the vertex, with coronal and sagittal reformats.? For radiation dose reduction, the following was used:? automated exposure control, adjustment of mA and/or kV according to patient size.? ? COMPARISON:? [facility], CT, CT HEAD/BRAIN WO CON, 09/28/2022, 8:40. ? FINDINGS:? Image quality:? Excellent.? ? CSF spaces:? Basal cisterns are patent.? No extra-axial fluid collections.? The ventricles are symmetric in size and shape.? ? Brain:? No intracranial bleeds or masses.? There is cerebral volume loss for age, with resultant ventricular and sulcal prominence.? There are periventricular and deep white matter chronic small vessel ischemic changes.? There is intracranial internal carotid artery atherosclerosis.? ? Skull and face:? Calvarium and visualized facial bones appear intact, without suspicious lesions.? ? Sinuses:? Visualized sinuses and mastoids are clear.? ? IMPRESSION:? No acute intracranial abnormality. ? ? Dictated by: Elio Ghotra M.D. on 01/27/2023 at 10:23 ? ? Chest x-ray: Radiologist's Impression: PROCEDURE:? XR CHEST 1V ? INDICATIONS:? chest pain ? TECHNIQUE:? One view of the chest was acquired.? ? COMPARISON:? [facility], CR, XR CHEST 1V, 01/01/2023, 16:35. ? FINDINGS:? ? Surgical changes and devices:? Leadless pacemaker ? Lungs and pleura:? Lungs are clear.? No pleural effusions or pneumothorax.? ? Mediastinum:? Mediastinal contours appear normal.? Heart size is normal.? ? Bones and chest wall:? No suspicious bony lesions.? Overlying soft tissues appear unremarkable.? ? IMPRESSION:? No evidence acute pulmonary process. ? ? ? Dictated by: Elio Ghotra M.D. on 01/27/2023 at 10:29 ? ? ECG Data Interpretation: Atrial fibrillation rate [address] changes similar to previous EKGs MDM Narrative Medical decision making narrative: Patient 87-year-old male reports today appear near syncopal episode after working outside in the heat for many days. He is definitely warm to touch. Oral temperature was not elevated however temporal showed 100.6. Lactate significantly elevated at 7 quickly dropped back to normal range after 1 or 2 L of IV fluids. Blood cultures are pending but not suspect infection with a negative procalcitonin. Head CT is negative no leukocytosis or anemia. I suspect lactate and symptoms are most consistent with heat related injury. He is ambulatory in the ED he is quite anxious to go. I think reasonable to go home instructed him to drink fluids and stay out of the sun. Discharge Plan Departure Patient Disposition: Home Clinical Impression: Heat exhaustion Instructions: Heat Exhaustion and Heat Stroke Activity Restrictions/Additional Instructions: *You have been diagnosed with heat exhaustion *What to do: Do not work outside in the yard, increase fluid intake *Continue to take medications as directed *Follow up with your primary care provider in 2-3 days or call [phone] *Return to ER if you should have increasing confusion falling or any new, worsening or concerning symptoms Prescriptions: No Action finasteride 5 mg tablet 5 mg PO DAILY Qty: 90 3RF lisinopril 10 mg tablet 10 mg PO DAILY Qty: 90 3RF metoprolol succinate 25 mg tablet extended release 24 hr 25 mg PO DAILY Qty: 90 3RF tamsulosin 0.4 mg capsule 0.4 mg PO DAILY Qty: 90 3RF atorvastatin [Lipitor] 80 mg tablet 80 mg PO HS Qty: 90 3RF Prevagen 1 tab PO DAILY cephalexin 500 mg capsule 500 mg PO BID Qty: 14 0RF Referrals: Alejandro Garcia MD [Primary Care Provider] - Stand Alone Forms: Patient Portal/API
--- NOTE | 2023-01-27 10:01 | DI.RAD.S_ITS ---
PROCEDURE: XR CHEST 1V INDICATIONS: chest pain TECHNIQUE: One view of the chest was acquired. COMPARISON: [facility], CR, XR CHEST 1V, 01/01/2023, 16:35. FINDINGS: Surgical changes and devices: Leadless pacemaker Lungs and pleura: Lungs are clear. No pleural effusions or pneumothorax. Mediastinum: Mediastinal contours appear normal. Heart size is normal. Bones and chest wall: No suspicious bony lesions. Overlying soft tissues appear unremarkable. IMPRESSION: No evidence acute pulmonary process. Dictated by: Elio Ghotra M.D. on 01/27/2023 at 10:29 Approved by: Elio Ghotra M.D. on 01/27/2023 at 10:30
[2023-01-27] MEDS: SODIUM CHLORIDE 0.9% 1,000 ML 1000 ML IV ×2 (10:05→12:26)
[2023-01-27 10:11] LABS: Add Manual Diff / Slide Review NO; Basophils Absolute Auto 100 /uL (0-100); Basophils Percent Auto 0.8 % (0-2); Eosinophils Absolute Auto 0 /uL (0-450); Eosinophils Percent Auto 0.5 % (2-4); Hematocrit 40.2 % (41-53); Hemoglobin 13.8 g/dL (13.5-17.5); Lymphocytes Absolute Auto 1900 /uL (1100-4500); Lymphocytes Percent Auto 28.5 % (25-40); Mean Corpuscular HGB Conc 34.4 % (30-36); Mean Corpuscular Hemoglobin 33.1 PG (26-34); Mean Corpuscular Volume 96.2 fL (80-100); Monocytes Absolute Auto 300 /uL (0-900); Monocytes Percent Auto 4.7 % (3-14); Neutrophils Absolute Auto 4400 /uL (1500-7000); Neutrophils Percent Auto 65.5 % (50-75); Platelet Count 191 X10^3/uL (150-400); Red Blood Cell Count 4.18 X10^6/uL (4.5-5.9); Red Cell Distribution Width 13.4 % (11.6-14.8); White Blood Cell Count 6.7 X10^3/uL (4.5-11.0)
[2023-01-27 10:16] LABS: Albumin 4.3 g/dL (3.5-5.0); Albumin Globulin Ratio 1.4 (1.0-2.8); Alkaline Phosphatase 89 U/L (38-126); Aspartate Aminotransferase 28 IU/L (17-59); BUN Creatinine Ratio 20.9 (6-22); Bilirubin Total 1.8 mg/dL (0.2-1.3); Blood Urea Nitrogen 23 mg/dL (9-20); Calcium 9.4 mg/dL (8.4-10.2); Carbon Dioxide 22 mmol/L (22-32); Chloride 101 mmol/L (98-107); Creatine Kinase 81 U/L (55-170); Estimated Glomerular Filt Rate > 60 mL/min (>60); Glucose 96 mg/dL (80-110); Lipase 169 U/L (23-300); Potassium 4.6 mmol/L (3.4-5.1); Sodium 137 mmol/L (137-145); Total Protein 7.3 g/dL (6.3-8.2)
--- NOTE | 2023-01-27 10:19 | PC.NURSE ---
Patient reports he loves working in his garden, was out there in the heat the last two days. States he collapsed this morning when he went outside. Skin is hot to the touch. Oral temp is 98.4F however temporal temperature is 100.6F. He is able to tell me name and date of and situation surrounding his coming to the ER, however he states he is 57 years old. Unsure of baseline mental status.
[2023-01-27 10:20] LABS: Lactate (Lactic Acid) 7.7 mmol/L (0.7-2.1)
[2023-01-27 10:23] LABS: Alanine Aminotransferase 26 IU/L (<50); HEMOLYSIS 21 (0-50)
[2023-01-27 10:29] LABS: Troponin I < 0.012 ng/mL (0.01-0.034)
[2023-01-27 10:52] LABS: Procalcitonin 0.06 ng/mL (<0.5)
--- NOTE | 2023-01-27 11:41 | PC.NURSE ---
1100 Patient is mildly hypotensive with BP's systolic in the low 90's. Head of the bed lowered and fluids were placed on a pressure bag. Dr. Richards aware and will reassess.
[2023-01-27 12:03] LABS: Reflexed Lactate in 2 Hours Y
[2023-01-27 12:53] LABS: Lactate 2HR (Lactic Acid Rflx) 1.2 mmol/L (0.7-2.1)
--- NOTE | 2023-01-27 13:05 | PC.NURSE ---
Orthostatic vitals done. Patient is currently A&Ox3 and wants to go home. sitting at bedside, states his baseline is some mild dementia and that he is normal per her at this time. Patient reports he is wobbly upon standing but that this is his baseline per and per him. He states he knows he needs to stand up slowly and wait for a bit before walking in order to avoid falling.
--- NOTE | 2023-01-27 13:09 | PC.NURSE ---
Patient reports he has a walker to use at home if he is feeling wobbly. Dr. Richards aware.
== END 2023-01-27 13:55 | disposition home or self-care (01) ==
PROVIDERS: Emergency Provider Emergency Medicine; PCP Internal Medicine
DX: T67.5XXA Heat exhaustion, unspecified, initial encounter (principal); R41.0 Disorientation, unspecified; R07.9 Chest pain, unspecified; Z79.01 Long term (current) use of anticoagulants; Z79.899 Other long term (current) drug therapy; W18.30XA Fall on same level, unspecified, initial encounter
CPT/HCPCS: 36415; 70450; 71045; 80053; 82550; 83605; 83690; 84145; 84484; 85025; 87040; 93005; 96360; 96361; 99284

== ENCOUNTER → 2023-03-10 15:59 | Outpatient (CLI) | payer MEDICARE, SELFPAY ==
[2023-01-01 19:39] VITALS: BMI 23.8
== END ==
PROVIDERS: PCP Internal Medicine; Visit Provider Urology
DX: N31.2 Flaccid neuropathic bladder, not elsewhere classified (principal); N32.0 Bladder-neck obstruction; R33.9 Retention of urine, unspecified
CPT/HCPCS: 81002; 87086

== ENCOUNTER 2023-03-13 15:28 | Emergency (ER) | payer MEDICARE, SELFPAY ==
[2023-01-01 19:39] VITALS: BMI 23.8
[2023-03-13] VITALS (8 sets, daily range): BP systolic 107–143; BP diastolic 61–74; PULSE 59–79; RESP 18; TEMP 37; O2SAT 95–100; BMI 23.1
--- NOTE | 2023-03-13 15:37 | DI.CT.S_ITS ---
PROCEDURE: CT CHEST WO CON INDICATIONS: GLF, BILAT POSTERIOR RIB/CHEST PAIN TECHNIQUE: Noncontrast 5 mm thick sections acquired from the pulmonary apices to the posterior costophrenic angles. 1 mm lung window, 5 mm thick coronal and sagittal and 7 mm axial MIP reformats were then acquired. For radiation dose reduction, the following was used: automated exposure control, adjustment of mA and/or kV according to patient size. COMPARISON: [facility], CT, CT CHEST ABD PEL W CON, 09/28/2022, 8:40. FINDINGS: Image quality: Excellent. Lungs and pleura: No acute air space opacities. No pleural effusions or pneumothorax. No pulmonary contusions. Stable 3 mm left apical nodule (3/61). Stable posterior left apical lipoma. Stable 2 mm right middle lobe nodule (3/191). Resolution of nodule within the anterior segment right middle lobe bronchus, likely representing mucous plugging. Additional scattered sub 2 mm micro nodules are stable. Central and peripheral airways are patent and normal in caliber. Mediastinum: Heart size is normal. Mild coronary artery calcifications. Lead less cardiac device in place, likely pacemaker. Trace pericardial effusion. No mediastinal adenopathy by size criteria. Thoracic aorta and central pulmonary arteries are normal in size. Atherosclerotic vascular calcifications. Esophagus is normal in caliber. No hiatal hernia. Bones and chest wall: No suspicious bony lesions. Degenerative changes of the spine. Subacute to chronic appearing left lower rib fractures with callus formation. Chronic right-sided rib fractures. No vertebral body compression fractures. No axillary or supraclavicular adenopathy by size criteria. Thyroid gland is within normal limits . Abdomen: Right hepatic lobe calcification. Status post cholecystectomy. IMPRESSION: 1. No acute traumatic injury within the chest. 2. Subacute to chronic left lower rib fractures with callus formation. No acute rib fractures are seen. Stable chronic right rib fractures. 3. Stable scattered pulmonary micro nodules. Resolution of prior right middle lobe endobronchial nodule, likely representing mucous plugging on prior. Dictated by: Inder Ross M.D. on 03/13/2023 at 16:00 Approved by: Inder Ross M.D. on 03/13/2023 at 16:10
--- NOTE | 2023-03-13 15:38 | ED.FALL ---
HPI - Fall General Chief Complaint: Fall Stated Complaint: fall, back pain Time Seen by Provider: 03/13/23 15:33 History of Present Illness HPI Narrative: 87-year-old male presents by EMS from home for lower thoracic back pain after a ground level fall. Patient states that he was fixing something on his TV set up, he turned to look at his and then lost his balance, falling over. He landed initially on his left hip and then on his back. He adamantly denies hitting his head, denies loss of consciousness. Denies use of blood thinners. He is reporting rib pain bilaterally in his lower thoracic region. Related Data Home Medications Medication Instructions Recorded Confirmed Prevagen 1 tab PO DAILY 04/14/21 03/08/23 Previous Rx's Medication Instructions Recorded atorvastatin 80 mg tablet (Lipitor) 80 mg PO HS #90 tabs 07/23/22 finasteride 5 mg tablet 5 mg PO DAILY #90 tabs 08/17/22 lisinopril 10 mg tablet 10 mg PO DAILY #90 tabs 08/17/22 metoprolol succinate 25 mg 25 mg PO DAILY #90 tabs 08/17/22 tablet,extended release 24 hr tamsulosin 0.4 mg capsule 0.4 mg PO DAILY #90 caps 08/17/22 Allergies Allergy/AdvReac Type Severity Reaction Status Date / Time No Known Drug Allergies Allergy Verified 03/08/23 09:49 Review of Systems Review of Systems Narrative: CONSTITUTIONAL- Denies: fever, chills, fatigue HEENT- Denies: sore throat, nosebleed, vision changes RESPIRATORY- Denies: shortness of breath, cough, wheezing CARDIAC- Denies: chest pain, edema, orthopnea GI- Denies: abdominal pain, nausea, vomiting, constipation, diarrhea - Denies: frequency, dysuria, hematuria, flank pain MSK-reports: Rib pain, thoracic back Denies: extremity pain, extremity swelling, joint pain, joint swelling SKIN- Denies: rash, itching, burn, swelling NEUROLOGICAL- Denies: headache, numbness, weakness, dizziness PSYCHIATRIC- Denies: anxiety, depression, suicidal ideation, homicidal ideation Patient History Medical History (Updated 03/13/23 @ 17:37 by Beverly William MD) Acute CVA (cerebrovascular accident) Atrial fibrillation Bladder outlet obstruction BPH (benign prostatic hyperplasia) Brain TIA Essential hypertension Family history of CVA Family history of dementia Hypotonic bladder 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 Memory loss Mixed hyperlipidemia RBBB Urinary retention Surgical History History of appendectomy History of tonsillectomy S/P cardiac pacemaker procedure (~12/2018) Family History Father CVA (cerebral vascular accident) Mother Dementia Social History household members: spouse Smoking Status: Former smoker alcohol intake: former Smoking Status: Former smoker alcohol intake frequency: 3 or more drinks per day Substance Use Type: does not use Exam Initial Vital Signs Initial Vital Signs: Vital Signs Temperature 98.6 F 03/13/23 15:34 Pulse Rate 70 03/13/23 15:34 Respiratory Rate 18 03/13/23 15:34 Blood Pressure 141/65 H 03/13/23 15:34 Pulse Oximetry 100 03/13/23 15:34 Oxygen Delivery Method Room Air 03/13/23 15:34 Const: Awake, alert, no acute distress, frail, nontoxic appearing Eyes: PERRL, EOMI, conjunctiva normal ENT: Atraumatic, dentition normal, mucous membranes moist Cardiac: regular rate, regular rhythm RESP: unlabored, clear bilaterally, no wheezing GI: Atraumatic, soft, nontender, nondistended, no rebound, no guarding MSK: Midthoracic tenderness paraspinal bilaterally Skin: Warm, Dry, intact, no rashes Neuro: AO x3, CN II-XII grossly intact, moves all extremities Psych: affect normal, mood normal, not suicidal, not homicidal Course Course Course Narrative: Ground level mechanical fall after losing his balance. Patient's pain is in his thoracic region along his ribcage. Thorough assessment reveals no other elicited sources of pain. Due to the location of the patient's reported pain as well as his age will obtain a CT of the chest to assess for thoracic pathology as well as occult rib fractures. Patient declines pain medication. Orders Ordered: ED Orders 03/13/23 15:37 CT chest wo con Stat Reevaluation(s) Reevaluation #1: CT imaging shows subacute to chronic rib fractures, however no acute fractures identified. Patient reports feeling improved, he was ambulatory with a walker throughout the emergency department. He walks with a walker at baseline. He and his are eager to go home as they do not want to drive in the dark. Patient was counseled to take Tylenol and Motrin as needed for pain. ED return precautions discussed at bedside. Patient expressed understanding of the plan and is in agreement at this time. All questions answered at the time of discharge. Vital Signs Vital signs: Vital Signs - 8 hr 03/13/23 15:34 Temperature 98.6 F Pulse Rate 70 Respiratory Rate 18 Blood Pressure 141/65 H Pulse Oximetry 100 Oxygen Delivery Method Room Air MDM - Fall Differential Diagnosis Differential diagnosis: Likely fracture of wrist, compression fracture and concussion with loss of consciousness Discharge Plan Departure Patient Disposition: Home Clinical Impression: Pain in rib, Fall Instructions: How to Prevent Falls Prescriptions: No Action finasteride 5 mg tablet 5 mg PO DAILY Qty: 90 3RF lisinopril 10 mg tablet 10 mg PO DAILY Qty: 90 3RF metoprolol succinate 25 mg tablet extended release 24 hr 25 mg PO DAILY Qty: 90 3RF tamsulosin 0.4 mg capsule 0.4 mg PO DAILY Qty: 90 3RF atorvastatin [Lipitor] 80 mg tablet 80 mg PO HS Qty: 90 3RF Prevagen 1 tab PO DAILY Referrals: Alejandro Garcia MD [Primary Care Provider] - Stand Alone Forms: Patient Portal/API
--- NOTE | 2023-03-13 16:23 | PC.NURSE ---
Bandage noticed on right hand. Removed bandage. Approximate 6cm skin tear noted. Pt denies pain to hand/wrist. Provider Stewart made aware and went to room to assess patient. Bandage replaced.
--- NOTE | 2023-03-13 17:28 | PC.NURSE ---
Ambulation trial per provider verbal direction. Patient ambulated with walker. Steady on feet. Denied dizziness, lightheadedness or feeling off balance. Pt has walker at home. Provider made aware.
== END 2023-03-13 17:44 | disposition home or self-care (01) ==
PROVIDERS: Emergency Provider Emergency Medicine; PCP Internal Medicine
DX: R07.81 Pleurodynia (principal); W18.30XA Fall on same level, unspecified, initial encounter
CPT/HCPCS: 71250; 99281; 99284